=== PATIENT | female | born 1945 | race Caucasian/White ===

== ENCOUNTER 2020-12-13 13:55 | Inpatient (IN) | payer MEDICARE, OTHER, SELFPAY ==
[2020-12-13] VITALS (9 sets, daily range): BP systolic 98–153; BP diastolic 49–90; PULSE 67–100; RESP 16–25; TEMP 36.1–36.8; O2SAT 94–100; BMI 30.8
--- NOTE | ~2020-12-13 | XR_ITS ---
XR chest 1V portable 12/13/2020 14:13 Indication: Altered mental status. Shortness of breath. Procedure: AP portable chest Comparison: No prior studies for comparison. Findings: Patchy bilateral airspace disease, compatible with pneumonia. No significant effusion or pn eumothorax. No acute osseous abnormality. Impression: 1: Patchy bilateral airspace disease, compatible with pneumonia. Reviewed, dictated and finalized at location A. Impression: 1: Patchy bilateral airspace disease, compatible with pneumonia.
--- NOTE | ~2020-12-13 | CT_ITS ---
EXAMINATION: CT brain wo con EXAM DATE: 12/13/2020 14:56 INDICATION: Shortness of breath. Altered mental status. TECHNIQUE: Spiral CT of the head was performed without contrast. Axial, coronal and sagittal images were reviewed. The dose-length product (DLP) for this examination was 605.33 mGy-cm. The exposure w as tailored according to patient size, and iterative reconstruction (ASIR) was used as additional dos e reduction technique. There is no prior study for comparison. FINDINGS: There is no acute intraparenchymal hemorrhage. No evidence of intraparenchymal brain mass lesion. No evidence of acute infarction. Please note that initial head CT has limited sensitivity f or small or acute infarctions. 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 There is moderate perive ntricular and subcortical hypodensity, nonspecific but probably related to small vessel ischemic dise ase. There is moderate prominence of the sulci and ventricles related to cerebral atrophy. There is intracranial carotid arteriosclerosis. There are no extra-axial collections. There is no mass ef fect or midline shift. Patient has had bilateral ocular lens surgery. Soft tissue is unremarkable. The visualized sinuses and mastoid air cells are well aerated. IMPRESSION: 1. No acute intracranial findings. 2. Chronic age related findings. 3. 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 Reviewed, dictated and finalized at location B.
--- NOTE | 2020-12-13 14:01 | ECG_ITS ---
Measurements Intervals [place] Rate: 100 P: 28 NH: 175 QRS: -31 QRSD: 119 T: 120 QT: 341 QTc: 440 Interpretive Statements SINUS TACHYCARDIA LEFT AXIS DEVIATION INTRAVENTRICULAR CONDUCTION DELAY LEFT VENTRICULAR HYPERTROPHY AND ST-T CHANGE MINIMAL Q WAVES- HIGH LATERAL LEADS CANNOT RULE OUT SEPTAL INFARCT, AGE INDETERMINATE ABNORMAL ECG Electronically Signed On 12-13-2020 14:13:36 CDT by Paul Frederick D.O.
[2020-12-13] MEDS: SODIUM CHLORIDE 0.9% IV 1,000 ML 150 ML IV CONT (14:38)
[2020-12-13 14:43] LABS: Alveolar/Arterial O2 Gradient 42.5 mmHg; Base Excess ABG -0.3 mEq/l (+/-2.0); Device ROOM AIR; Fractional Inspired Oxygen 21 %; HCO3 ABG 22.6 mEq/l (22.0-26.0); Modified Allen's Test Pass; Oxygen Content ABG 18.9 %vol (16.0-22.0); Oxygen Saturation ABG 94.8 % (95.0-100.0); Oxyhemoglobin 92.7 % THb (90.0-100.0); PCO2 ABG 32.3 mmHg (35.0-45.0); PO2 ABG 68.6 mmHg (80.0-100.0); PO2 FiO2 Ratio Arterial Blood 3.27 %; Site Drawn RIGHT RADIAL; Total Hemoglobin 14.5 g/dL (12.0-18.0); pH ABG 7.463 (7.350-7.450)
[2020-12-13 15:24] LABS: Basophils Percent Auto 0.2 % (0.2-1.2); Eosinophils Absolute Auto 0.2 K/mm3 (0-0.3); Eosinophils Percent Auto 1.7 % (0-4.4); Hematocrit 41.7 % (37.0-47.0); Hemoglobin 14.3 g/dL (12.0-15.0); Immature Granulocyte Absolute 0.12 K/mm3 (0.00-0.031); Immature Granulocyte Percent A 0.8 % (0-0.5); Lymphocytes Absolute Auto 0.65 K/mm3 (0.9-3.2); Lymphocytes Percent Auto 4.5 % (18.3-44.2); Mean Corpuscular HGB Conc 34.3 g/dl (32-36); Mean Corpuscular Hemoglobin 31.7 pg (26-34); Mean Corpuscular Volume 92.5 fl (80-100); Mean Platelet Volume 11.6 fl (7.4-10.4); Monocytes Absolute Auto 0.8 K/mm3 (0.1-0.6); Monocytes Percent Auto 5.5 % (2.6-8.5); Neutrophils Absolute Auto 12.6 K/mm3 (1.3-6.7); Neutrophils Percent Auto 87.3 % (45.5-73.1); Platelet Count Result 146 k/mm3 (150-375); Red Blood Count 4.51 M/mm3 (4.2-5.4); Red Cell Distribution Width 13.1 % (11.5-14.5); White Blood Count 14.4 K/mm3 (4.5-10.0)
[2020-12-13 15:26] LABS: Alanine Aminotransferase 26 U/L (4-35); Albumin Level 4.9 g/dL (3.5-5.1); Alkaline Phosphatase 151 U/L (38-126); Anion Gap 14 mmol/L (8-16); Aspartate Amino Transferase 41 U/L (14-36); Bilirubin,Total 1.5 mg/dL (0.2-1.3); Blood Urea Nitrogen 23 mg/dL (7-17); Calcium 10.4 mg/dL (8.4-10.2); Carbon Dioxide 25 mmol/L (22-30); Chloride 105 mmol/L (98-107); Estimated CRCL calculation 41 ml/min; Estimated Glomerular Filt Rate 54; Glucose 180 mg/dL (65-110); Potassium 3.9 mmol/L (3.4-5.0); Sodium 144 mmol/L (137-145)
[2020-12-13 15:28] LABS: Prothrombin Time 12.8 Seconds (11.1-14.7)
[2020-12-13 15:36] LABS: NT Pro B Type Natriuretic Pept 292 pg/mL (5-100); Troponin I < 0.012 ng/mL (0.000-0.034)
[2020-12-13 15:38] LABS: Add Urine Microscopic? YES; Appearance Urine Clear (Clear); Bilirubin Urine Negative (Negative); Color Urine Yellow (Yellow); Glucose Urine UA Negative (Negative); Ketones Urine Trace mg/dL (Negative); Leukocyte Esterase Ur Negative LEU/UL (Negative); Nitrate Urine Negative (Negative); Protein Urine Negative (Negative); RBC Urine 0-2 /hpf (0-2); Specific Grav Ur 1.012 (1.001-1.035); Urobilinogen Urine Negative mg/dL (<2.0)
[2020-12-13 15:43] LABS: Blood Urine Negative (Negative)
--- NOTE | 2020-12-13 16:05 | PC.NURSE ---
patient unable to confirm allergies or past medical history, jail paperwork not complete
--- NOTE | 2020-12-13 16:21 | ED.AMS ---
HPI - Altered Mental Status General Chief Complaint: Altered Mental Status Stated Complaint: LETHARGY Time Seen by Provider: 12/13/20 14:11 Source: EMS Mode of arrival: EMS Limitations: altered mental status History of Present Illness HPI narrative: 75-year-old with a history of hypothyroidism, group home resident was sent from group home with increased lethargy for past few days. Was told by EMS that she was seen yesterday at [facility] and was released back to the group home. As per the nursing patient has been more lethargic this since this morning. Patient denies any pain anywhere does answer few questions. MD complaint: decreased responsiveness Onset (ago): day(s) (2) Severity: moderate Associated symptoms: denies other symptoms Related Data Allergies Allergy/AdvReac Type Severity Reaction Status Date / Time No Known Allergies Allergy Verified 12/13/20 14:39 Review of Systems Constitutional: Constitutional: Reports weakness Eyes: Eyes: Reports no additional eye complaints Cardiovascular: Cardiovascular: Reports no additional cardiovascular complaints Respiratory: Respiratory: Reports no additional respiratory complaints Gastrointestinal: Gastrointestinal: Reports no additional gastrointestinal complaints Genitourinary: Genitourinary: Reports no additional female genitourinary complaints Musculoskeletal: Musculoskeletal: Reports no additional musculoskeletal complaints Integumentary/Breasts: Skin/Breast: Reports system reviewed and no additional complaints, except as docu Neurologic: Reports as per HPI Exam Narrative: GENERAL:, well-nourished, lethargic had to wake her up several times while doing physical examination HEAD: Normocephalic, atraumatic. EYES: PERRLA and EOMI. ENT: Nares clear, no rhinorrhea or epistaxis. Mucous membranes dry NECK: Supple. CHEST: Clear to auscultation. No respiratory distress. HEART: Regular rate and rhythm. No murmur heard. Normal peripheral pulses. ABDOMEN: Soft, nontender, nondistended, normal active bowel sounds. EXTREMITIES: Normal range of motion. No edema. SKIN: Warm, dry, no rash. NEURO: No focal deficits. drowsy Course Course Emergency Course: Patient continues to be lethargic discussed with hospitalist will admit the patient. Vital Signs Vital signs: Vital Signs Temperature 36.8 C 12/13/20 13:54 Pulse Rate 100 12/13/20 13:54 Respiratory Rate 19 12/13/20 13:54 Blood Pressure 152/86 H 12/13/20 13:54 Pulse Oximetry 95 12/13/20 13:54 Temperature 36.8 C 12/13/20 13:54 Pulse Rate 99 12/13/20 16:05 Respiratory Rate 18 12/13/20 16:05 Blood Pressure 153/75 H 12/13/20 16:05 Pulse Oximetry 97 12/13/20 16:05 MDM - Altered Mental Status Lab Data Result diagrams: 12/13/20 14:26 12/13/20 14:26 Labs: Lab Results 12/13/20 12/13/20 12/13/20 Range/Units 14:26 14:26 14:26 WBC 14.4 H (4.5-10.0) K/mm3 RBC 4.51 (4.2-5.4) M/mm3 Hgb 14.3 (12.0-15.0) g/dL Hct 41.7 (37.0-47.0) % MCV 92.5 (80-100) fl MCH 31.7 (26-34) pg MCHC 34.3 (32-36) g/dl RDW 13.1 (11.5-14.5) % Plt Count 146 L (150-375) k/mm3 MPV 11.6 H (7.4-10.4) fl Immature Gran % (Auto) 0.8 H (0-0.5) % Neut % (Auto) 87.3 H (45.5-73.1) % Lymph % (Auto) 4.5 L (18.3-44.2) % [place] % (Auto) 5.5 (2.6-8.5) % Eos % (Auto) 1.7 (0-4.4) % Baso % (Auto) 0.2 (0.2-1.2) % Lymph # (Auto) 0.65 L (0.9-3.2) K/mm3 [place] # (Auto) 0.8 H (0.1-0.6) K/mm3 Eos # (Auto) 0.2 (0-0.3) K/mm3 Baso # (Auto) 0.0 (0.0-0.1) K/mm3 Abs Immat Gran (auto) 0.12 H (0.00-0.031) K/mm3 Absolute Neuts (auto) 12.6 H (1.3-6.7) K/mm3 Absolute Nucleated RBC 0.0 (0.0-0.012) K/mm3 Nucleated RBC % 0.0 (0.0-0.2) % PT 12.8 (11.1-14.7) Seconds INR 1.0 Sodium (137-145) mmol/L Potassium (3.4-5.0) mmol/L Chloride (98-107) mmol/L Carbon Di
--- NOTE | 2020-12-13 18:30 | ADMGEN ---
This patient, Aleta Howard, was admitted to Medical Room 245-. Patient/family oriented to hospital policies and general routines including ID bracelet, bed and alarms, visiting hours, pain management, procedures, bathroom and other care routines, personal items, smoking policy, room service/diet, and visiting hours. Information on how to activate the Rapid Response Team has been discussed. Patient/Family are encouraged to report perceived risks to care and to ask questions if they do not understand what they are told or what they should do.
--- NOTE | 2020-12-13 19:06 | PC.NURSE ---
Attempted to call snf to obtain PMH on patient. No answer from [facility].
[2020-12-13] MEDS: SODIUM CHLORIDE 0.9% IV 1,000 ML 125 ML IV CONT (20:03)
--- NOTE | 2020-12-13 21:37 | PM.IMHP ---
H&P: HPI History of Present Illness Date/Time: 12/13/20 21:37 This is a 75-year-old female patient from [facility]. The patient is very lethargic and was found to be more lethargic this morning at the halfway. I can stimulate the patient get her to open her eyes and falls asleep in the middle of a sentence. She is not able to answer any of her health questions. It is not known when the patient was last checked for COVID-19. However the patient tells me that she has had her complete set of vaccines for COVID-19. Patient denies any discomfort anywhere. She does have an elevated white count of 14.4. Chest x-ray was read as patchy bilateral airspace disease, compatible with pneumonia. Head CT no acute intracranial findings. Chronic age-related findings. Old left basal ganglia glue cane or infarctions. Chest x-ray was read as patchy bilateral airspace disease, compatible with pneumonia. The patient was started on antibiotic stewardship for community-acquired pneumonia with azithromycin Rocephin. I did order a COVID swab on the patient. I did speak with her daughter anita who stated that the patient had gone to [facility] [place] on Thursday and was found to have a urinary tract infection at that time. The patient was placed on IV antibiotics that night and then transition to oral antibiotics. However today her urine does not appear to be infected. The patient was admitted to observation status on the date of service of 12/13/2020. Chief Complaint: Lethargic Review of Systems Review of Systems: All systems reviewed & are unremarkable except as noted in HPI and below Constitutional: Constitutional: Reports as per HPI and Reports no additional constitutional complaints Eyes: Eyes: Reports as per HPI and Reports no additional eye complaints ENT: Reports system reviewed and no additional complaints, except as documented and Reports Normal hearing present Cardiovascular: Cardiovascular: Reports no additional cardiovascular complaints Respiratory: Respiratory: Reports no additional respiratory complaints and Reports no additional respiratory complaints Gastrointestinal: Gastrointestinal: Reports as per HPI and Reports no additional gastrointestinal complaints Musculoskeletal: Musculoskeletal: Reports no additional musculoskeletal complaints Integumentary/Breasts: Skin/Breast: Reports system reviewed and no additional complaints, except as docu and Reports as per HPI Neurologic: Reports system reviewed and no additional complaints, except as documented, Reports as per HPI and Reports Normal hearing present Psychiatric: Psychiatric: Reports no additional psychiatric complaints and Reports as per HPI Endocrine: Endocrine: Reports no additional endocrine complaints Hematologic/Lymphatic: Hematologic/Lymphatic: Reports no additional hematologic/lymphatic complaints Allergic/Immunologic: Allergic/Immunologic: Reports no additional allergic/immunologic complaints [facility] Past Medical History Medical History (Updated 12/13/20 @ 22:16 by Sydnie Otto NP) Depression with anxiety Diverticulitis Hyperlipidemia Hypothyroidism Narcolepsy Restless leg Surgical History Surgical History (Updated 12/13/20 @ 21:59 by Sydnie Otto NP) H/O lumpectomy H/O: hysterectomy History of total knee arthroplasty Hx of cholecystectomy S/P colectomy Family History Family History (Updated 12/13/20 @ 22:03 by Sydnie Otto NP) Father Bone cancer Mother Cerebrovascular accident Other Unknown family medical history Social History Social History (Updated 12/13/20 @ 22:03 by Sydnie Otto NP) Social History: She is . she is listed as a full.She has two children. nonsmoker. no alcohol. she retired from [employer].Anita horne is the poa who is the daughter Meds Home Medications and Allergies Home Medications Medication Instructions Recorded Confirmed Type Calcium 600 + D(3) 2 tablet PO D
--- NOTE | 2020-12-13 22:39 | PC.NURSE ---
This patient, Aleta Howard, was received from [address] [place] [address] on 12/13/20 at 2240. Report taken from Yaritza CORDERO. Patient/family oriented to unit policies and routines.
--- NOTE | 2020-12-13 22:50 | PC.NURSE ---
REPORT CALLED TO BRAULIO CORDERO ON , PT TRANSPORTED PER BED TO ROOM 329. JEWELRY HANDED TO BRAULIO CORDERO
--- NOTE | 2020-12-13 22:52 | PC.NURSE ---
DAUGHTER KEYSHA NOTIFIED OF TRANSFER
[2020-12-14] VITALS: PULSE 90
[2020-12-14 04:00] VITALS: BP 118/68; PULSE 72; PULSE 75; RESP 16; TEMP 36.3; O2SAT 94
[2020-12-14 06:30] LABS: Basophils Absolute Auto 0.1 K/mm3 (0.0-0.1); Basophils Percent Auto 0.4 % (0.2-1.2); Eosinophils Absolute Auto 0.3 K/mm3 (0-0.3); Eosinophils Percent Auto 2.6 % (0-4.4); Hematocrit 47.8 % (37.0-47.0); Hemoglobin 15.4 g/dL (12.0-15.0); Immature Granulocyte Absolute 0.08 K/mm3 (0.00-0.031); Immature Granulocyte Percent A 0.6 % (0-0.5); Immature Platelet Fraction Pct 8.9 % (0.9-11.2); Lymphocytes Absolute Auto 1.55 K/mm3 (0.9-3.2); Lymphocytes Percent Auto 12.4 % (18.3-44.2); Mean Corpuscular HGB Conc 32.2 g/dl (32-36); Mean Corpuscular Volume 96.4 fl (80-100); Mean Platelet Volume 11.7 fl (7.4-10.4); Monocytes Absolute Auto 0.9 K/mm3 (0.1-0.6); Monocytes Percent Auto 6.9 % (2.6-8.5); Neutrophils Absolute Auto 9.7 K/mm3 (1.3-6.7); Neutrophils Percent Auto 77.1 % (45.5-73.1); Platelet Count Result 127 k/mm3 (150-375); Red Blood Count 4.96 M/mm3 (4.2-5.4); Red Cell Distribution Width 13.2 % (11.5-14.5); White Blood Count 12.5 K/mm3 (4.5-10.0)
[2020-12-14 06:44] LABS: Lactic Acid Reflex 1.2 mmol/L (0.7-2.1)
[2020-12-14 07:09] LABS: Atypical Lymphocytes Present; Platelet Estimate Adequate (Adequate)
[2020-12-14 07:49] LABS: Alanine Aminotransferase 19 U/L (4-35); Albumin Level 3.7 g/dL (3.5-5.1); Alkaline Phosphatase 103 U/L (38-126); Anion Gap 7 mmol/L (8-16); Aspartate Amino Transferase 28 U/L (14-36); Blood Urea Nitrogen 21 mg/dL (7-17); CRP 8.7 mg/dL (<1.0); Carbon Dioxide 26 mmol/L (22-30); Chloride 110 mmol/L (98-107); Creatine Kinase 134 U/L (30-135); Estimated CRCL calculation 53 ml/min; Estimated Glomerular Filt Rate > 60; Glucose 147 mg/dL (65-110); Lactate Dehydrogenase 438 U/L (313-618); Magnesium 1.8 mg/dL (1.6-2.3); Potassium 3.4 mmol/L (3.4-5.0); Sodium 143 mmol/L (137-145)
[2020-12-14 07:53] LABS: Thyroid Stimulating Hormone Reflex 0.841 uIU/mL (0.465-4.68)
[2020-12-14 08:00] VITALS: BP 108/48; PULSE 73; PULSE 75; RESP 20; TEMP 36.7; O2SAT 95
[2020-12-14] MEDS: ENOXAPARIN 40 MG/0.4 ML SYRINGE SUB-Q (08:42)
[2020-12-14 12:00] VITALS: BP 104/56; PULSE 72; PULSE 82; RESP 20; TEMP 36.5; O2SAT 100
--- NOTE | 2020-12-14 15:01 | P.PNIM_ITS ---
Progress Note: A&P Assessment and Plan (1) Pneumonia: Qualifiers: Laterality: bilateral Lung location: lower lobe of lung Pneumonia type: due to unspecified organism Qualified Code(s): J18.9 - Pneumonia, unspecified organism Code(s): J18.9 - Pneumonia, unspecified organism Status: Acute Assessment and Plan: * blood cultures are pending. * sputum cultures are pending. * chest x-ray was read as patchy infiltrates bilaterally * fully vaccinated for COVID-19. * daughter was not sure when the patient had gotten swabbed for COVID-19. * Covid pending * Ceftriaxone and azithromycin * WBC 12.5 today (2) Altered mental status: Qualifiers: Altered mental status type: somnolence Qualified Code(s): R40.0 - Somnolence Code(s): R41.82 - Altered mental status, unspecified Status: Acute Assessment and Plan: * CT scan shows old infarctions and nothing acute. * could be related to infectious process whether it is bacterial or viral. * history of narcolepsy. * Better today * Electrolytes normal * Trend labs (3) Depression with anxiety: Code(s): F41.8 - Other specified anxiety disorders Status: Chronic Assessment and Plan: * Restart home medications * Continue sertraline (4) Hypothyroidism: Code(s): E03.9 - Hypothyroidism, unspecified Status: Chronic Assessment and Plan: * continue levothyroxine 25mcg PO Daily * thyroid level 0.841 (5) Hyperlipidemia: Code(s): E78.5 - Hyperlipidemia, unspecified Status: Chronic Assessment and Plan: * simvastatin 10mg PO at night (6) Restless leg: Code(s): G25.81 - Restless legs syndrome Status: Chronic Assessment and Plan: * Continue home ropinirole (7) Suspected COVID-19 virus infection: Code(s): Z20.822 - Contact with and (suspected) exposure to COVID-19 Status: Acute Assessment and Plan: * Covid pending * droplet and contact isolation. 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 Status: Acute Assessment and Plan: * Continue Modafinil Time Spent With Patient Time with patient: Greater than 35 minutes Subjective Date/time seen: 12/14/20 15:01 Interval history: Patient is a 75 year old female who is here for altered mental status. She seemed ok, however, when she is asked a question she does not really answer the question. When I would ask if she knew the answer or if she was just thinking about it. It was really hard to get her to really talk to me when I would ask her questions. She did tell me that she did not like eggs. She denies chest pain, shortness of breath, nausea, vomiting. Review of Systems Review of Systems: All systems reviewed & are unremarkable except as noted in HPI and below Exam Const: General: cooperative, confusion, ill appearing and tired appearing Nutritional Appearance: average body habitus and overweight Orientation/consciousness: oriented to person, oriented to place and confusion Limitations: no limitations HENMT: Head: normal to inspection, No palpable skull fracture present, normocephalic and atraumatic Ears: hearing grossly normal bilaterally and external ears normal General nose exam: Norm
--- NOTE | 2020-12-14 15:01 | PM.IMPN ---
Progress Note: A&P Assessment and Plan (1) Pneumonia: Qualifiers: Laterality: bilateral Lung location: lower lobe of lung Pneumonia type: due to unspecified organism Qualified Code(s): J18.9 - Pneumonia, unspecified organism Code(s): J18.9 - Pneumonia, unspecified organism Status: Acute Assessment and Plan: blood cultures are pending. sputum cultures are pending. chest x-ray was read as patchy infiltrates bilaterally fully vaccinated for COVID-19. daughter was not sure when the patient had gotten swabbed for COVID-19. Covid pending Ceftriaxone and azithromycin WBC 12.5 today (2) Altered mental status: Qualifiers: Altered mental status type: somnolence Qualified Code(s): R40.0 - Somnolence Code(s): R41.82 - Altered mental status, unspecified Status: Acute Assessment and Plan: CT scan shows old infarctions and nothing acute. could be related to infectious process whether it is bacterial or viral. history of narcolepsy. Better today Electrolytes normal Trend labs (3) Depression with anxiety: Code(s): F41.8 - Other specified anxiety disorders Status: Chronic Assessment and Plan: Restart home medications Continue sertraline (4) Hypothyroidism: Code(s): E03.9 - Hypothyroidism, unspecified Status: Chronic Assessment and Plan: continue levothyroxine 25mcg PO Daily thyroid level 0.841 (5) Hyperlipidemia: Code(s): E78.5 - Hyperlipidemia, unspecified Status: Chronic Assessment and Plan: simvastatin 10mg PO at night (6) Restless leg: Code(s): G25.81 - Restless legs syndrome Status: Chronic Assessment and Plan: Continue home ropinirole (7) Suspected COVID-19 virus infection: Code(s): Z20.822 - Contact with and (suspected) exposure to COVID-19 Status: Acute Assessment and Plan: Covid pending droplet and contact isolation. has been fully vaccinated and her daughter did verify this (8) Narcolepsy: Code(s): G47.419 - Narcolepsy without cataplexy Status: Acute Assessment and Plan: Continue Modafinil Time Spent With Patient Time with patient: Greater than 35 minutes Subjective Date/time seen: 12/14/20 15:01 Interval history: Patient is a 75 year old female who is here for altered mental status. She seemed ok, however, when she is asked a question she does not really answer the question. When I would ask if she knew the answer or if she was just thinking about it. It was really hard to get her to really talk to me when I would ask her questions. She did tell me that she did not like eggs. She denies chest pain, shortness of breath, nausea, vomiting. Review of Systems Review of Systems: All systems reviewed & are unremarkable except as noted in HPI and below Exam Const: General: cooperative, confusion, ill appearing and tired appearing Nutritional Appearance: average body habitus and overweight Orientation/consciousness: oriented to person, oriented to place and confusion Limitations: no limitations HENMT: Head: normal to inspection, No palpable skull fracture present, normocephalic and atraumatic Ears: hearing grossly normal bilaterally and external ears normal General nose exam: Normal external nose present and Normal nares present Mouth: Yes dry mucous membranes Eyes: General: appearance normal, both eyes and all related structures Alignment and Position: alignment normal Periorbital: periorbital findings normal Eyelids: eyelids normal Pupils: Equal, round and reactive pupils present EOM: EOMs intact bilaterally Neck: Neck: normal visual inspection Chest: Chest palpation & inspection: normal inspection of the chest Resp: Effort & Inspection: normal respiratory effort Auscultation: clear to auscultation bilaterally Percuss
[2020-12-14 16:00] VITALS: BP 105/53; PULSE 61; PULSE 65; RESP 16; TEMP 36.6; O2SAT 94
[2020-12-14] MEDS: SODIUM CHLORIDE 0.9% IV 1,000 ML 125 ML IV CONT (17:07)
[2020-12-14 18:26] LABS: SARS-CoV-2 RNA PCR Negative
[2020-12-14 20:00] VITALS: BP 129/57; PULSE 66; PULSE 71; RESP 18; TEMP 37.2; O2SAT 96
[2020-12-14] MEDS: busPIRone HCL 2.5 MG TABLET 7.5 MG PO (20:58)
[2020-12-14] MEDS: rOPINIRole HCL 1 MG TABLET PO (20:58)
[2020-12-14] MEDS: SIMVASTATIN 10 MG TABLET PO (20:58)
[2020-12-14 22:47] LABS: Glucose Point of Care 124 mg/dl (65-105)
[2020-12-15] VITALS: BP 127/61; PULSE 74; PULSE 78; RESP 18; TEMP 36.4; O2SAT 91
[2020-12-15] MEDS: SODIUM CHLORIDE 0.9% IV 1,000 ML 125 ML IV CONT ×2 (03:19→11:31)
[2020-12-15 04:00] VITALS: BP 128/60; PULSE 70; PULSE 73; RESP 18; TEMP 36.3; O2SAT 96
[2020-12-15] MEDS: LEVOTHYROXINE SODIUM 25 MCG TABLET PO (06:14)
[2020-12-15 06:43] LABS: Basophils Percent Auto 0.4 % (0.2-1.2); Eosinophils Absolute Auto 0.3 K/mm3 (0-0.3); Eosinophils Percent Auto 4.1 % (0-4.4); Hematocrit 34.3 % (37.0-47.0); Hemoglobin 11.7 g/dL (12.0-15.0); Immature Granulocyte Absolute 0.05 K/mm3 (0.00-0.031); Immature Granulocyte Percent A 0.6 % (0-0.5); Immature Platelet Fraction Pct 5.5 % (0.9-11.2); Lymphocytes Absolute Auto 1.55 K/mm3 (0.9-3.2); Lymphocytes Percent Auto 19.7 % (18.3-44.2); Mean Corpuscular HGB Conc 34.1 g/dl (32-36); Mean Corpuscular Hemoglobin 32.1 pg (26-34); Mean Platelet Volume 11.4 fl (7.4-10.4); Monocytes Absolute Auto 0.7 K/mm3 (0.1-0.6); Monocytes Percent Auto 9.1 % (2.6-8.5); Neutrophils Absolute Auto 5.2 K/mm3 (1.3-6.7); Neutrophils Percent Auto 66.1 % (45.5-73.1); Platelet Count Result 133 k/mm3 (150-375); Red Blood Count 3.65 M/mm3 (4.2-5.4); Red Cell Distribution Width 13.2 % (11.5-14.5); White Blood Count 7.9 K/mm3 (4.5-10.0)
[2020-12-15 07:18] LABS: Alanine Aminotransferase 19 U/L (4-35); Albumin Level 3.2 g/dL (3.5-5.1); Alkaline Phosphatase 86 U/L (38-126); Anion Gap 9 mmol/L (8-16); Aspartate Amino Transferase 33 U/L (14-36); Bilirubin,Total 0.8 mg/dL (0.2-1.3); Blood Urea Nitrogen 21 mg/dL (7-17); Calcium 8.2 mg/dL (8.4-10.2); Carbon Dioxide 22 mmol/L (22-30); Chloride 109 mmol/L (98-107); Estimated CRCL calculation 60 ml/min; Estimated Glomerular Filt Rate > 60; Glucose 127 mg/dL (65-110); Magnesium 1.6 mg/dL (1.6-2.3); Potassium 3.5 mmol/L (3.4-5.0); Sodium 140 mmol/L (137-145)
[2020-12-15 08:00] VITALS: PULSE 69
[2020-12-15] MEDS: ENOXAPARIN 40 MG/0.4 ML SYRINGE SUB-Q (08:04)
[2020-12-15] MEDS: busPIRone HCL 2.5 MG TABLET 7.5 MG PO ×2 (08:04→21:11)
[2020-12-15] MEDS: FAMOTIDINE 10 MG TABLET PO (08:05)
[2020-12-15] MEDS: FLUTICASONE PROPIONATE 0.05% NA SPR 16 GM BTL (*BKC) 1 SPRAY NASAL (08:05)
[2020-12-15] MEDS: LORATADINE 10 MG TABLET PO (08:05)
[2020-12-15] MEDS: SERTRALINE HCL 50 MG TABLET PO (08:05)
[2020-12-15] MEDS: CHOLECALCIFEROL 1,000 UNITS TABLET 1000 UNITS PO (08:05)
[2020-12-15] MEDS: DOCUSATE SODIUM 100 MG CAPSULE PO (08:05)
[2020-12-15] MEDS: ASCORBIC ACID 500 MG TABLET PO (08:05)
[2020-12-15] MEDS: ASPIRIN 81 MG CHEWABLE TABLET PO (08:05)
[2020-12-15] MEDS: MONTELUKAST SODIUM 10 MG TABLET PO (08:05)
[2020-12-15] MEDS: MAGNESIUM SULF 2 GM/WATER 50ML 2 GM/50 ML BAG IVPB (08:15)
[2020-12-15] MEDS: modafiniL (*CRX) 200 MG TABLET PO (08:17)
--- NOTE | 2020-12-15 10:00 | PM.IMPN ---
Progress Note: A&P Assessment and Plan (1) Pneumonia: Qualifiers: Laterality: bilateral Lung location: lower lobe of lung Pneumonia type: due to unspecified organism Qualified Code(s): J18.9 - Pneumonia, unspecified organism Code(s): J18.9 - Pneumonia, unspecified organism Status: Acute Assessment and Plan: blood cultures NGTD. sputum cultures pending chest x-ray was read as patchy infiltrates bilaterally fully vaccinated for COVID-19. Covid Negative Ceftriaxone and azithromycin Day 3 WBC 7.9 today (2) Altered mental status: Qualifiers: Altered mental status type: somnolence Qualified Code(s): R40.0 - Somnolence Code(s): R41.82 - Altered mental status, unspecified Status: Acute Assessment and Plan: CT scan shows old infarctions and nothing acute. could be related to infectious process whether it is bacterial or viral. history of narcolepsy. Better today mag slightly low, replaced Trend labs (3) Depression with anxiety: Code(s): F41.8 - Other specified anxiety disorders Status: Chronic Assessment and Plan: Restart home medications Continue sertraline (4) Hypothyroidism: Code(s): E03.9 - Hypothyroidism, unspecified Status: Chronic Assessment and Plan: continue levothyroxine 25mcg PO Daily thyroid level 0.841 (5) Hyperlipidemia: Code(s): E78.5 - Hyperlipidemia, unspecified Status: Chronic Assessment and Plan: simvastatin 10mg PO at night (6) Restless leg: Code(s): G25.81 - Restless legs syndrome Status: Chronic Assessment and Plan: Continue home ropinirole (7) Suspected COVID-19 virus infection: Code(s): Z20.822 - Contact with and (suspected) exposure to COVID-19 Status: Acute Assessment and Plan: Covid negative droplet and contact isolation. has been fully vaccinated and her daughter did verify this (8) Narcolepsy: Code(s): G47.419 - Narcolepsy without cataplexy Status: Acute Assessment and Plan: Continue Modafinil (9) Hypomagnesemia: Code(s): E83.42 - Hypomagnesemia Status: Acute Assessment and Plan: Mg 1.6 replace 2mg IV once trend labs Replace as needed (10) Hypokalemia: Code(s): E87.6 - Hypokalemia Status: Acute Assessment and Plan: Potassium 3.5 Considered giving 20mcg after mg infusion Trend labs Replace as needed Time Spent With Patient Time with patient: 25 - 35 minutes Subjective Date/time seen: 12/15/20 07:55 Interval history: Patient is a 75 year old female who is here for altered mental status. Patient states she is feeling okay and she denies having any kind of pain. She does have a bit of dizziness while sitting up or getting up. She was getting up to chair which she did well and she was able to put on her socks. Patient does have a little bit of expressive and receptive aphasia which can find the right word or understand some of the word asked of her. Patient denies knowing about her old stroke. However patient is still able to move all extremities and transfer the chair quite nicely. Patient denies chest pain, shortness of breath, abdominal pain, nausea, vomiting. Patient did say that she was weak. Review of Systems Review of Systems: All systems reviewed & are unremarkable except as noted in HPI and below Exam Const: General: cooperative, no acute distress and confusion Nutritional Appearance: average body habitus and overweight Orientation/consciousness: oriented to person, oriented to place and confusion Limitations: no limitations HENMT: Head: normal to inspection, No palpable skull fracture present, normocephalic and atraumatic Ears: hearing grossly normal bilaterally and external ears normal General nose exam: Norm
--- NOTE | 2020-12-15 10:00 | P.PNIM_ITS ---
Progress Note: A&P Assessment and Plan (1) Pneumonia: Qualifiers: Laterality: bilateral Lung location: lower lobe of lung Pneumonia type: due to unspecified organism Qualified Code(s): J18.9 - Pneumonia, unspecified organism Code(s): J18.9 - Pneumonia, unspecified organism Status: Acute Assessment and Plan: * blood cultures NGTD. * sputum cultures pending * chest x-ray was read as patchy infiltrates bilaterally * fully vaccinated for COVID-19. * Covid Negative * Ceftriaxone and azithromycin Day 3 * WBC 7.9 today (2) Altered mental status: Qualifiers: Altered mental status type: somnolence Qualified Code(s): R40.0 - Somnolence Code(s): R41.82 - Altered mental status, unspecified Status: Acute Assessment and Plan: * CT scan shows old infarctions and nothing acute. * could be related to infectious process whether it is bacterial or viral. * history of narcolepsy. * Better today * mag slightly low, replaced * Trend labs (3) Depression with anxiety: Code(s): F41.8 - Other specified anxiety disorders Status: Chronic Assessment and Plan: * Restart home medications * Continue sertraline (4) Hypothyroidism: Code(s): E03.9 - Hypothyroidism, unspecified Status: Chronic Assessment and Plan: * continue levothyroxine 25mcg PO Daily * thyroid level 0.841 (5) Hyperlipidemia: Code(s): E78.5 - Hyperlipidemia, unspecified Status: Chronic Assessment and Plan: * simvastatin 10mg PO at night (6) Restless leg: Code(s): G25.81 - Restless legs syndrome Status: Chronic Assessment and Plan: * Continue home ropinirole (7) Suspected COVID-19 virus infection: Code(s): Z20.822 - Contact with and (suspected) exposure to COVID-19 Status: Acute Assessment and Plan: * Covid negative * droplet and contact isolation. 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 Status: Acute Assessment and Plan: * Continue Modafinil (9) Hypomagnesemia: Code(s): E83.42 - Hypomagnesemia Status: Acute Assessment and Plan: * Mg 1.6 * replace 2mg IV once * trend labs * Replace as needed (10) Hypokalemia: Code(s): E87.6 - Hypokalemia Status: Acute Assessment and Plan: * Potassium 3.5 * Considered giving 20mcg after mg infusion * Trend labs * Replace as needed Time Spent With Patient Time with patient: 25 - 35 minutes Subjective Date/time seen: 12/15/20 07:55 Interval history: Patient is a 75 year old female who is here for altered mental status. Patient states she is feeling okay and she denies having any kind of pain. She does have a bit of dizziness while sitting up or getting up. She was getting up to chair which she did well and she was able to put on her socks. Patient does have a little bit of expressive and receptive aphasia which can find the right word or understand some of the word asked of her. Patient denies knowing about her old stroke. However patient is still able to move all extremities and transfer the chair quite nicely. Patient denies chest pain, shortness of breath, abdominal pain, nausea, vomi
[2020-12-15 14:00] VITALS: BP 150/69; PULSE 69; RESP 28; TEMP 36.6; O2SAT 97
[2020-12-15] MEDS: SIMVASTATIN 10 MG TABLET PO (21:11)
[2020-12-15] MEDS: rOPINIRole HCL 1 MG TABLET PO (21:11)
[2020-12-15 21:52] VITALS: BP 145/65; PULSE 80; RESP 18; TEMP 36.6; O2SAT 95
[2020-12-16] MEDS: LEVOTHYROXINE SODIUM 25 MCG TABLET PO (05:42)
[2020-12-16 05:46] VITALS: BP 124/55; PULSE 65; RESP 18; TEMP 36.6; O2SAT 95
[2020-12-16 07:04] LABS: Basophils Absolute Auto 0.1 K/mm3 (0.0-0.1); Basophils Percent Auto 0.7 % (0.2-1.2); Eosinophils Absolute Auto 0.3 K/mm3 (0-0.3); Eosinophils Percent Auto 4.2 % (0-4.4); Hematocrit 34.6 % (37.0-47.0); Hemoglobin 11.7 g/dL (12.0-15.0); Immature Granulocyte Absolute 0.07 K/mm3 (0.00-0.031); Immature Granulocyte Percent A 0.9 % (0-0.5); Immature Platelet Fraction Pct 6.6 % (0.9-11.2); Lymphocytes Absolute Auto 1.58 K/mm3 (0.9-3.2); Lymphocytes Percent Auto 20.9 % (18.3-44.2); Mean Corpuscular HGB Conc 33.8 g/dl (32-36); Mean Corpuscular Hemoglobin 31.5 pg (26-34); Mean Corpuscular Volume 93.3 fl (80-100); Mean Platelet Volume 11.1 fl (7.4-10.4); Monocytes Absolute Auto 0.8 K/mm3 (0.1-0.6); Monocytes Percent Auto 10.3 % (2.6-8.5); Neutrophils Absolute Auto 4.8 K/mm3 (1.3-6.7); Platelet Count Result 146 k/mm3 (150-375); Red Blood Count 3.71 M/mm3 (4.2-5.4); Red Cell Distribution Width 12.8 % (11.5-14.5); White Blood Count 7.6 K/mm3 (4.5-10.0)
[2020-12-16 07:36] LABS: Alanine Aminotransferase 18 U/L (4-35); Albumin Level 3.3 g/dL (3.5-5.1); Alkaline Phosphatase 94 U/L (38-126); Anion Gap 6 mmol/L (8-16); Aspartate Amino Transferase 27 U/L (14-36); Bilirubin,Total 0.7 mg/dL (0.2-1.3); Blood Urea Nitrogen 18 mg/dL (7-17); Calcium 8.1 mg/dL (8.4-10.2); Carbon Dioxide 25 mmol/L (22-30); Chloride 108 mmol/L (98-107); Estimated CRCL calculation 60 ml/min; Estimated Glomerular Filt Rate > 60; Glucose 154 mg/dL (65-110); Potassium 3.2 mmol/L (3.4-5.0); Sodium 139 mmol/L (137-145)
[2020-12-16] MEDS: busPIRone HCL 2.5 MG TABLET 7.5 MG PO (09:33)
[2020-12-16] MEDS: SERTRALINE HCL 50 MG TABLET PO (09:33)
[2020-12-16] MEDS: MONTELUKAST SODIUM 10 MG TABLET PO (09:33)
[2020-12-16] MEDS: ENOXAPARIN 40 MG/0.4 ML SYRINGE SUB-Q (09:33)
[2020-12-16] MEDS: POTASSIUM CHLORIDE 20 MEQ TABLET 40 MEQ PO (09:33)
[2020-12-16] MEDS: CHOLECALCIFEROL 1,000 UNITS TABLET 1000 UNITS PO (09:34)
[2020-12-16] MEDS: LORATADINE 10 MG TABLET PO (09:34)
[2020-12-16] MEDS: ASPIRIN 81 MG CHEWABLE TABLET PO (09:34)
[2020-12-16] MEDS: ASCORBIC ACID 500 MG TABLET PO (09:34)
[2020-12-16] MEDS: FAMOTIDINE 10 MG TABLET PO (09:34)
[2020-12-16] MEDS: FLUTICASONE PROPIONATE 0.05% NA SPR 16 GM BTL (*BKC) 1 SPRAY NASAL (09:34)
[2020-12-16] MEDS: DOCUSATE SODIUM 100 MG CAPSULE PO (09:34)
[2020-12-16] MEDS: modafiniL (*CRX) 200 MG TABLET PO (09:36)
--- NOTE | 2020-12-16 13:12 | P.DS_ITS ---
DS: Admitting Diagnosis Discharge Date Date of service 12/16/2020 at 11:00 a.m. Admitting Diagnosis Pneumonia DS: Discharge Diagnosis Discharge Diagnosis (1) Pneumonia: Qualifiers: Laterality: bilateral Lung location: lower lobe of lung Pneumonia type: due to unspecified organism Qualified Code(s): J18.9 - Pneumonia, unspecified organism Code(s): J18.9 - Pneumonia, unspecified organism Status: Acute Assessment and Plan: * blood cultures NGTD. * sputum cultures pending * chest x-ray was read as patchy infiltrates bilaterally * fully vaccinated for COVID-19. * Covid Negative * Ceftriaxone and azithromycin Day 3 * WBC 7.9 today (2) Altered mental status: Qualifiers: Altered mental status type: somnolence Qualified Code(s): R40.0 - Somnolence Code(s): R41.82 - Altered mental status, unspecified Status: Acute Assessment and Plan: * CT scan shows old infarctions and nothing acute. * could be related to infectious process whether it is bacterial or viral. * history of narcolepsy. * Better today * mag slightly low, replaced * Trend labs (3) Depression with anxiety: Code(s): F41.8 - Other specified anxiety disorders Status: Chronic Assessment and Plan: * Restart home medications * Continue sertraline (4) Hypothyroidism: Code(s): E03.9 - Hypothyroidism, unspecified Status: Chronic Assessment and Plan: * continue levothyroxine 25mcg PO Daily * thyroid level 0.841 (5) Hyperlipidemia: Code(s): E78.5 - Hyperlipidemia, unspecified Status: Chronic Assessment and Plan: * simvastatin 10mg PO at night (6) Restless leg: Code(s): G25.81 - Restless legs syndrome Status: Chronic Assessment and Plan: * Continue home ropinirole (7) Suspected COVID-19 virus infection: Code(s): Z20.822 - Contact with and (suspected) exposure to COVID-19 Status: Acute Assessment and Plan: * Covid negative * droplet and contact isolation. 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 Status: Acute Assessment and Plan: * Continue Modafinil (9) Hypomagnesemia: Code(s): E83.42 - Hypomagnesemia Status: Acute Assessment and Plan: * Mg 1.6 * replace 2mg IV once * trend labs * Replace as needed (10) Hypokalemia: Code(s): E87.6 - Hypokalemia Status: Acute Assessment and Plan: * Potassium 3.5 * Considered giving 20mcg after mg infusion * Trend labs * Replace as needed DS: Summary Hospital Course Hospital Course: Patient is a 75-year-old female with a past medical history of hyperlipidemia, hypothyroidism, diverticulitis who presented to the ED with complaints of altered mental status. Patient was started on IV antibiotics for treatment of pneumonia. Chest x-ray did show patchy infiltrates bilaterally. COVID swab was negative patient was COVID vaccinated. Patient has been able to feed herself and 8. She has also been up to the chair and walked in the room. Patient has not required any oxygen. Patient stated that she is okay with going home today and she feels like herself. She denies pain including
--- NOTE | 2020-12-16 13:12 | PM.DS ---
DS: Admitting Diagnosis Discharge Date Date of service 12/16/2020 at 11:00 a.m. Admitting Diagnosis Pneumonia DS: Discharge Diagnosis Discharge Diagnosis (1) Pneumonia: Qualifiers: Laterality: bilateral Lung location: lower lobe of lung Pneumonia type: due to unspecified organism Qualified Code(s): J18.9 - Pneumonia, unspecified organism Code(s): J18.9 - Pneumonia, unspecified organism Status: Acute Assessment and Plan: blood cultures NGTD. sputum cultures pending chest x-ray was read as patchy infiltrates bilaterally fully vaccinated for COVID-19. Covid Negative Ceftriaxone and azithromycin Day 3 WBC 7.9 today (2) Altered mental status: Qualifiers: Altered mental status type: somnolence Qualified Code(s): R40.0 - Somnolence Code(s): R41.82 - Altered mental status, unspecified Status: Acute Assessment and Plan: CT scan shows old infarctions and nothing acute. could be related to infectious process whether it is bacterial or viral. history of narcolepsy. Better today mag slightly low, replaced Trend labs (3) Depression with anxiety: Code(s): F41.8 - Other specified anxiety disorders Status: Chronic Assessment and Plan: Restart home medications Continue sertraline (4) Hypothyroidism: Code(s): E03.9 - Hypothyroidism, unspecified Status: Chronic Assessment and Plan: continue levothyroxine 25mcg PO Daily thyroid level 0.841 (5) Hyperlipidemia: Code(s): E78.5 - Hyperlipidemia, unspecified Status: Chronic Assessment and Plan: simvastatin 10mg PO at night (6) Restless leg: Code(s): G25.81 - Restless legs syndrome Status: Chronic Assessment and Plan: Continue home ropinirole (7) Suspected COVID-19 virus infection: Code(s): Z20.822 - Contact with and (suspected) exposure to COVID-19 Status: Acute Assessment and Plan: Covid negative droplet and contact isolation. 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 Patient was started on IV antibiotics for treatment of pneumonia. Chest x-ray did show patchy infiltrates bilaterally. COVID swab was negative patient was COVID vaccinated. Patient has been able to feed herself and 8. She has also been up to the chair and walked in the room. Patient has not required any oxygen. Patient stated that she is okay with going home today and she feels like herself. She denies pain including chest pain, shortness of breath, weakness, fatigue, fevers, chills, sweats. Patient did say that she had some lightheadedness with getting out of bed. Instructed patient to move and change positions slowly. Updated the daughter about the discharge in the her know the patient is ready to go back. Daughter stated that she would be by to get the patient. She also like to note the patient was appropriate for assisted living. Patient will be going back to her [facility] at [facility]. Status at Discharge Functional status at discharge: uses cane/walker Overall status at discharge: maria teresa
[2020-12-16 14:00] VITALS: BP 133/69; PULSE 67; RESP 20; TEMP 36.4; O2SAT 99
== END 2020-12-16 18:35 | DRG 195 ==
LOC: ANHED 16:29 → ANH2MED 17:57 → ANH3MEDSUR 22:34
PROVIDERS: Nurse Practitioner; Admitting Provider Hospitalist; Emergency Provider Family Medicine; Visit Provider Nurse Practitioner
DX: J18.9 Pneumonia, unspecified organism (principal); Z20.828 Contact with and (suspected) exposure to other viral communicable diseases; F41.8 Other specified anxiety disorders; E03.9 Hypothyroidism, unspecified; E78.5 Hyperlipidemia, unspecified; G25.81 Restless legs syndrome; G47.419 Narcolepsy without cataplexy; E83.42 Hypomagnesemia; E87.6 Hypokalemia; R41.82 Altered mental status, unspecified; Z96.659 Presence of unspecified artificial knee joint; Z90.710 Acquired absence of both cervix and uterus; Z90.49 Acquired absence of other specified parts of digestive tract
CPT/HCPCS: 36415; 36600; 51701; 70450; 71045; 80053; 81001; 82550; 82728; 82805; 82948; 83605; 83615; 83735; 83880; 84443; 84484; 85025; 85055; 85610; 86140; 87040; 87086; 93005; 96365; 96375; 97116; 97161; 97165; 97530; 97535; 99285; A9270; C9803; J0456; J0696; J1650; J3475; J7030; U0003; U0005

== ENCOUNTER 2021-01-12 11:53 | Inpatient (IN) | payer MEDICARE, OTHER, SELFPAY ==
[2021-01-12] VITALS (9 sets, daily range): BP systolic 118–132; BP diastolic 55–101; PULSE 66–86; RESP 12–20; TEMP 36.3–37.6; O2SAT 84–100; BMI 28.4
--- NOTE | ~2021-01-12 | XR_ITS ---
EXAMINATION: XR knee RT 3V DATE: 01/15/2021 13:25 INDICATION: Right knee pain. TECHNIQUE: 3 views of right knee were obtained. COMPARISON: None. FINDINGS: There is varus angulation at the knee. No fracture. There is moderate osteoarthritis of med ial compartment and mild osteoarthritis of lateral and patellofemoral compartments. There is a small knee joint effusion with loose bodies. IMPRESSION: 1. Moderate right knee osteoarthritis. 2. Small right knee joint effusion with loose bodies. Reviewed, dictated and finalized at location A.
--- NOTE | ~2021-01-12 | XR_ITS ---
EXAMINATION: XR barium swallow modified DATE: 01/13/2021 12:01 INDICATION: Recurrent pneumonia TECHNIQUE: Modified barium esophagram was performed by myself to administered fluoroscopy, in conjun ction with speech pathologist who administered barium in varying consistencies as per speech patholog ist documentation. This was recorded on tape. A single fluoroscopic spot image was recorded. The DAP for this procedure was 2.263 Gycm2. Fluoroscopy exposure time was 2.8 minutes. FINDINGS: Oral stage: Adequate function. Pharyngeal phase: Reduced tongue base retraction. Laryngeal penetration: None. Aspiration: None. Laryngeal sensitivity: Present. IMPRESSION: Essentially normal modified barium swallow. Please refer to speech pathologist findings a nd specific feeding recommendations. Reviewed, dictated and finalized at location A. IMPRESSION: Essentially normal modified barium swallow. Please refer to speech pathologist findings and specific feeding recommendations.
--- NOTE | ~2021-01-12 | CT_ITS ---
EXAMINATION: CT chest abdomen w con EXAM DATE: 01/13/2021 09:47 INDICATION: Recurrent pneumonia. TECHNIQUE: Spiral CT of the chest and abdomen was performed following intravenous injection of 100 mL Omnipaque 350. Axial, coronal and sagittal images chest and abdomen were reviewed. Coronal maximum intensity pixel images of chest reviewed. The dose-length product (DLP) for this examination was 67 4.48 mGy-cm. The exposure was tailored according to patient size (auto mA exposure control), and ite rative reconstruction (ASIR) was used as additional dose reduction technique. Correlation is made to chest x-ray 01/12/2021. FINDINGS: CHEST: There our regions of mild intralobular septal thickening, could be mild interstitial lung dis ease consistent with Nonspecific Interstitial Pneumonitis (NSIP) pattern interstitial lung disease wi th many possible underlying etiologies including collagen vascular disease, medications/drugs, prior viral infection (COVID-19), hypersensitivity pneumonitis, idiopathic etiologies. There is no conflu ent consolidation or evidence of acute airspace disease. There are no pleural or pericardial effusio ns. Tracheobronchial tree is patent. There is no mediastinal, hilar or axillary lymphadenopathy. There is no pneumothorax. Heart is normal in size. There are dense mitral annular calcifications. No central pulmonary emboli. There is mild coronary arterial calcification, arterial sclerosis. ABDOMEN: Mildly dilated portal vein. There is hepatic steatosis without suspicious focal lesion iden tified. Spleen, adrenal glands, pancreas are unremarkable. There is supraumbilical small anterior abd ominal wall hernia. There are cholecystectomy clips. Portal and splenic veins are patent. Kidneys enhance symmetrically. There is no hydronephrosis. There are renal hypodensities too small to charac terize by CT, statistically most likely cysts. There may be some small regions of left renal cortical scarring. There is no retroperitoneal lymphadenopathy. There is mild scattered arteriosclerotic disease. The stomach and small bowel are unremarkable. There is expected amount of colonic stool. No free i ntraperitoneal gas. There are no osteoblastic or osteolytic lesions identified. IMPRESSION: 1. Regions of interlobular septal thickening, appearance most consistent with mild interstitial lung disease. 2. Hepatic steatosis. Possible portal hypertension. 3. Small supra umbilical fat-containing hernia. Reviewed, dictated and finalized at location B.
--- NOTE | ~2021-01-12 | CT_ITS ---
EXAMINATION: CT brain wo con INDICATION: Confusion COMPARISON: 12/13/2020 TECHNIQUE: Standard unenhanced head CT. The dose-length product (DLP) was 605.33 mGy-cm. The mA was a djusted according to patient size. Iterative reconstruction technique was employed. FINDINGS: There is no acute intraparenchymal hemorrhage. No evidence of mass lesion. No evidence of a cute infarction. There is mild periventricular and subcortical hypodensity probably related to small vessel ischemic disease. There is mild prominence of the sulci and ventricles related to cerebral atr ophy. Intracranial calcified cerebral atherosclerosis is noted. There are no extra-axial collections. There is no mass effect or midline shift. Changes in the globes are likely from ocular lens surgery. The visualized sinuses and mastoid air cells are well aerated. IMPRESSION: 1. No acute intracranial abnormality. 2. Age related findings. Reviewed, dictated and finalized at location A.
--- NOTE | ~2021-01-12 | XR_ITS ---
XR chest 1V portable DATE: 01/12/2021 14:39 INDICATION: Chest pain TECHNIQUE: Portable AP chest on 01/12/2021 at 1433 hours COMPARISON: 12/13/2020 portable AP chest at 1410 hours FINDINGS: There are patchy infiltrates involving primarily the mid and to a greater extent lower lung zones, relatively stable in appearance since 12/13/2020, consistent with pulmonary edema, pneumonia, aspiration pneumonitis and/or chronic interstitial changes. Heart size is not optimally evaluated on AP projection because of magnification. There is pulmonary v ascular redistribution which may indicate mild pulmonary venous hypertension, in addition to mild pro minence of the minor fissure which may indicate mild subpleural edema. There is aortic calcification and mild unfolding. Minimal pleural effusions are suggested. Diffuse osteopenia. Degenerative spurring of the thoracic spine. Mild osteoarthritic change of the le ft glenohumeral joint. IMPRESSION: Pulmonary vascular redistribution, prominence of minor fissure, suggesting pulmonary veno us hypertension and subpleural edema. Small pleural effusions are suggested. Infiltrates in the mid and primarily the lower lung zones may be due to pulmonary edema; differential diagnosis includes pneumonia, aspiration pneumonitis and/or chronic interstitial changes Little interval change since 12/13/2020 Reviewed, dictated and finalized at location A. IMPRESSION: Pulmonary vascular redistribution, prominence of minor fissure, sug gesting pulmonary venous hypertension and subpleural edema. Small pleural effus ions are suggested. Infiltrates in the mid and primarily the lower lung zones may be due to pulmona ry edema; differential diagnosis includes pneumonia, aspiration pneumonitis and /or chronic interstitial changes Little interval change since 12/13/2020
--- NOTE | 2021-01-12 12:12 | ECG_ITS ---
Measurements Intervals [place] Rate: 70 P: 22 SD: 160 QRS: -32 QRSD: 120 T: 91 QT: 402 QTc: 437 Interpretive Statements SINUS RHYTHM LEFT AXIS DEVIATION INTRAVENTRICULAR CONDUCTION DELAY LEFT VENTRICULAR HYPERTROPHY AND ST-T CHANGE MINIMAL Q WAVES- HIGH LATERAL LEADS BASELINE WANDER- I, II BORDERLINE ECG Electronically Signed On 01-12-2021 23:34:15 CDT by Pual Frederick D.O.
--- NOTE | 2021-01-12 12:37 | ED.AMS ---
HPI - Altered Mental Status General Chief Complaint: Altered Mental Status Stated Complaint: ams Time Seen by Provider: 01/12/21 12:08 Source: patient Mode of arrival: ambulatory Limitations: no limitations History of Present Illness HPI narrative: Patient is a 75-year-old female brought in by EMS due to altered mental status. Patient is from the memory care unit at [facility]. Patient denies any headache, dizziness, chest pain, shortness of breath, abdominal pain, nausea, vomiting, diarrhea or urinary symptoms. Patient is a very poor historian. Related Data Home Medications Medication Instructions Recorded Confirmed Calcium 600 + D(3) 2 tablet PO DAILY 12/13/20 12/13/20 ascorbic acid (vitamin C) [Vitamin 500 mg PO DAILY 12/13/20 12/13/20 C] aspirin 81 mg PO DAILY 12/13/20 12/13/20 buspirone 7.5 mg PO BID 12/13/20 12/13/20 cetirizine 10 mg PO DAILY 12/13/20 12/13/20 cholecalciferol (vitamin D3) 25 mcg PO DAILY 12/13/20 12/13/20 [Vitamin D3] docusate sodium 100 mg PO DAILY 12/13/20 12/13/20 famotidine 10 mg PO DAILY 12/13/20 12/13/20 fluticasone propionate 50 mcg INTRANASAL DAILY 12/13/20 12/13/20 levothyroxine 25 mcg PO DAILY 12/13/20 12/13/20 modafinil 150 mg PO QAM 12/13/20 12/13/20 modafinil See Rx Instructions .ROUTE .COMPLEX 12/13/20 12/13/20 montelukast 10 mg PO DAILY 12/13/20 12/13/20 ropinirole 1 mg PO HS 12/13/20 12/13/20 sertraline 50 mg PO DAILY 12/13/20 12/13/20 simvastatin 10 mg PO HS 12/13/20 12/13/20 Allergies Allergy/AdvReac Type Severity Reaction Status Date / Time No Known Allergies Allergy Verified 01/12/21 12:13 Review of Systems Review of Systems: All systems reviewed & are unremarkable except as noted in HPI and below ROS unobtainable: Yes unobtainable due to mental status Constitutional: Constitutional: Reports as per HPI [facility] Past Medical History Medical History Depression with anxiety Diverticulitis Hyperlipidemia Hypothyroidism Narcolepsy Restless leg Surgical History Surgical History H/O lumpectomy H/O: hysterectomy History of total knee arthroplasty Hx of cholecystectomy S/P colectomy Family History Family History Father Bone cancer Mother Cerebrovascular accident Other Unknown family medical history Social History Social History Social History: She is . she is listed as a full.She has two children. nonsmoker. no alcohol. she retired from [employer].Mary horne is the poa who is the daughter Exam Const: General: cooperative, healthy appearing, comfortable, no acute distress, well developed, alert and awake Orientation/consciousness: No confusion Limitations: no limitations HENMT: Head: normal to inspection, normocephalic and atraumatic Ears: hearing grossly normal bilaterally, TM normal on the right and TM normal on the left General nose exam: Normal external nose present, Normal nares present and No nasal discharge present Face and sinus: normal facial exam Mouth: Yes Normal oral and palatal mucosa present, Yes lip normal, Yes tongue normal and Yes oropharynx normal Throat: posterior oropharynx normal, tonsils normal and uvula midline Eyes: General: appearance normal, both eyes and all related structures Pupils: Equal, round and reactive pupils present EOM: EOMs intact bilaterally Neck: Neck: normal visual inspection, full ROM, no lymphadenopathy and no meningeal signs Chest: Chest palpation & inspection: normal inspection of the chest Resp: Effort & Inspection: normal respiratory effort, able to speak in complete sentences, no respiratory distress and not tachypneic Auscultation: clear to auscultation bilaterally, no crackles, no rales, no rhonchi and no wheezes Cardio: Rate: regular rate Rhythm: regular rhythm G
--- NOTE | 2021-01-12 12:51 | PC.NURSE ---
pt difficult stick, multiple attempts made by staff to obtain labs. [employer] called.
[2021-01-12 13:19] LABS: Basophils Absolute Auto 0.1 K/mm3 (0.0-0.1); Basophils Percent Auto 0.4 % (0.2-1.2); Eosinophils Absolute Auto 0.2 K/mm3 (0-0.3); Eosinophils Percent Auto 0.8 % (0-4.4); Hematocrit 41.4 % (37.0-47.0); Hemoglobin 14.2 g/dL (12.0-15.0); Immature Granulocyte Absolute 0.17 K/mm3 (0.00-0.031); Immature Granulocyte Percent A 0.8 % (0-0.5); Immature Platelet Fraction Pct 9.9 % (0.9-11.2); Lymphocytes Absolute Auto 1.85 K/mm3 (0.9-3.2); Lymphocytes Percent Auto 8.5 % (18.3-44.2); Mean Corpuscular HGB Conc 34.3 g/dl (32-36); Mean Corpuscular Hemoglobin 31.6 pg (26-34); Mean Corpuscular Volume 92.2 fl (80-100); Mean Platelet Volume 11.7 fl (7.4-10.4); Monocytes Percent Auto 4.7 % (2.6-8.5); Neutrophils Absolute Auto 18.5 K/mm3 (1.3-6.7); Neutrophils Percent Auto 84.8 % (45.5-73.1); Platelet Count Result 121 k/mm3 (150-375); Red Blood Count 4.49 M/mm3 (4.2-5.4); Red Cell Distribution Width 13.3 % (11.5-14.5); White Blood Count 21.8 K/mm3 (4.5-10.0)
[2021-01-12 13:47] LABS: Add Urine Microscopic? NO; Appearance Urine Clear (Clear); Bilirubin Urine Negative (Negative); Blood Urine Negative (Negative); Color Urine Yellow (Yellow); Glucose Urine UA Negative (Negative); Ketones Urine Negative (Negative); Leukocyte Esterase Ur Negative LEU/UL (Negative); Nitrate Urine Negative (Negative); Protein Urine Negative (Negative); Specific Grav Ur 1.012 (1.001-1.035); Urobilinogen Urine Negative mg/dL (<2.0)
--- NOTE | 2021-01-12 14:40 | PC.NURSE ---
German Vega in lab, still working on cmp.
[2021-01-12 15:02] LABS: Troponin I 0.013 ng/mL (0.000-0.034)
[2021-01-12 15:24] LABS: Lactic Acid Reflex 2.1 mmol/L (0.7-2.1)
[2021-01-12 15:32] LABS: Alanine Aminotransferase 22 U/L (4-35); Albumin Level 4.4 g/dL (3.5-5.1); Alkaline Phosphatase 125 U/L (38-126); Anion Gap 13 mmol/L (8-16); Aspartate Amino Transferase 41 U/L (14-36); Bilirubin,Total 1.7 mg/dL (0.2-1.3); Blood Urea Nitrogen 19 mg/dL (7-17); Carbon Dioxide 22 mmol/L (22-30); Chloride 108 mmol/L (98-107); Estimated CRCL calculation 46 ml/min; Estimated Glomerular Filt Rate > 60; Glucose 146 mg/dL (65-110); Potassium 4.1 mmol/L (3.4-5.0); Sodium 143 mmol/L (137-145)
[2021-01-12 18:12] LABS: Reflex Lactic Acid Yes or No Add Lactic
--- NOTE | 2021-01-12 19:13 | ADMGEN ---
This patient, Aleta Howard, was admitted to Medical Room 342-01. Patient/family oriented to hospital policies and general routines including ID bracelet, bed and alarms, visiting hours, pain management, procedures, bathroom and other care routines, personal items, smoking policy, room service/diet, and visiting hours. Information on how to activate the Rapid Response Team has been discussed. Patient/Family are encouraged to report perceived risks to care and to ask questions if they do not understand what they are told or what they should do.
[2021-01-12] MEDS: LACTATED RINGERS 1,000 ML 75 ML IV CONT (19:19)
--- NOTE | 2021-01-12 21:32 | PM.IMHP ---
H&P: HPI History of Present Illness Date/Time: 01/12/21 21:32 this is a 75-year-old female who has a history of dementia and is living at [facility]. The patient was recently discharged from here 1 month ago for community-acquired pneumonia and had been treated at that time. However the patient was brought back into the emergency room today due to altered mental status. She also has a history of narcolepsy. She denies any headache, dizziness, shortness of breath, abdominal pain, nausea, chest pain, vomiting, diarrhea, or any urinary symptoms. The patient is a very poor historian. She is having difficulty answering my questions. Her white count was noted to be 21.8. Blood cultures have been obtained. Her temperature is 37.6?. The patient had been fully vaccinated for COVID-19. Chest x-ray was read as pulmonary vasculature redistribution, prominence of minor fissure, suggesting pulmonary versus hypertension and subpleural edema. Small pleural effusions are suggested. Infiltrates in the mid and primary the lower lung zones may be due to pulmonary edema. Differential diagnosis includes pneumonia, aspiration pneumonia INR chronic interstitial changes. Little change since 12/13/2020. The patient was given a azithromycin and Rocephin in the emergency room for community-acquired pneumonia. The patient is being admitted to observation status on the date of service of 01/12/2021. Chief Complaint: Altered mental status Review of Systems Review of Systems: All systems reviewed & are unremarkable except as noted in HPI and below Constitutional: Constitutional: Reports as per HPI and Reports no additional constitutional complaints Eyes: Eyes: Reports as per HPI and Reports no additional eye complaints ENT: Reports system reviewed and no additional complaints, except as documented and Reports Normal hearing present Cardiovascular: Cardiovascular: Reports no additional cardiovascular complaints Respiratory: Respiratory: Reports no additional respiratory complaints and Reports no additional respiratory complaints Gastrointestinal: Gastrointestinal: Reports as per HPI and Reports no additional gastrointestinal complaints Musculoskeletal: Musculoskeletal: Reports no additional musculoskeletal complaints Integumentary/Breasts: Skin/Breast: Reports system reviewed and no additional complaints, except as docu and Reports as per HPI Neurologic: Reports system reviewed and no additional complaints, except as documented, Reports as per HPI and Reports Normal hearing present Psychiatric: Psychiatric: Reports no additional psychiatric complaints and Reports as per HPI Endocrine: Endocrine: Reports no additional endocrine complaints Hematologic/Lymphatic: Hematologic/Lymphatic: Reports no additional hematologic/lymphatic complaints Allergic/Immunologic: Allergic/Immunologic: Reports no additional allergic/immunologic complaints [facility] Past Medical History Medical History (Updated 01/12/21 @ 22:07 by Sydnie Otto NP) Dementia Depression with anxiety Diverticulitis DM2 (diabetes mellitus, type 2) History of CVA (cerebrovascular accident) Hyperlipidemia Hypothyroidism Narcolepsy Restless leg Surgical History Surgical History H/O lumpectomy H/O: hysterectomy History of total knee arthroplasty Hx of cholecystectomy S/P colectomy Family History Family History Father Bone cancer Mother Cerebrovascular accident Other Unknown family medical history Social History Social History Social History: She is . she is listed as a full.She has two children. nonsmoker. no alcohol. she retired from [employer].Mary horne is the poa who is the daughter Smoking status: Never smoker Alcohol intake: unknown Substance use: never Substance use type: do
[2021-01-12] MEDS: OXYBUTYNIN CHLORIDE 5 MG TABLET PO (22:56)
[2021-01-12] MEDS: prednisoLONE ACETATE 1% OPHTH 5 ML 1 DROP EACH EYE (22:56)
[2021-01-12] MEDS: rOPINIRole HCL 1 MG TABLET PO (22:56)
[2021-01-12] MEDS: SIMVASTATIN 10 MG TABLET PO (22:56)
[2021-01-13] VITALS (12 sets, daily range): BP systolic 104–135; BP diastolic 54–58; PULSE 66–78; RESP 16–28; TEMP 36.1–36.6; O2SAT 93–100
[2021-01-13] MEDS: IPRATROPIUM BR 0.02% INH SOLN 0.5 MG/2.5 ML VIAL INHALATION ×4 (02:36→19:43)
[2021-01-13] MEDS: ALBUTEROL SULFATE NEB 2.5 MG/0.5 ML INH INHALATION ×4 (02:36→19:43)
[2021-01-13] MEDS: LEVOTHYROXINE SODIUM 25 MCG TABLET PO (05:43)
[2021-01-13 06:18] LABS: Basophils Percent Auto 0.3 % (0.2-1.2); Eosinophils Absolute Auto 0.3 K/mm3 (0-0.3); Hematocrit 38.6 % (37.0-47.0); Hemoglobin 12.9 g/dL (12.0-15.0); Immature Granulocyte Absolute 0.05 K/mm3 (0.00-0.031); Immature Granulocyte Percent A 0.4 % (0-0.5); Immature Platelet Fraction Pct 7.2 % (0.9-11.2); Lymphocytes Absolute Auto 1.01 K/mm3 (0.9-3.2); Mean Corpuscular HGB Conc 33.4 g/dl (32-36); Mean Corpuscular Hemoglobin 30.9 pg (26-34); Mean Corpuscular Volume 92.6 fl (80-100); Mean Platelet Volume 11.9 fl (7.4-10.4); Monocytes Absolute Auto 0.4 K/mm3 (0.1-0.6); Monocytes Percent Auto 2.9 % (2.6-8.5); Neutrophils Absolute Auto 10.9 K/mm3 (1.3-6.7); Neutrophils Percent Auto 86.4 % (45.5-73.1); Platelet Count Result 112 k/mm3 (150-375); Red Blood Count 4.17 M/mm3 (4.2-5.4); Red Cell Distribution Width 13.4 % (11.5-14.5); White Blood Count 12.6 K/mm3 (4.5-10.0)
[2021-01-13 06:27] LABS: Lactic Acid Reflex 1.4 mmol/L (0.7-2.1)
[2021-01-13 07:52] LABS: Glucose Point of Care 119 mg/dl (65-105)
[2021-01-13 08:36] LABS: Alanine Aminotransferase 28 U/L (4-35); Albumin Level 3.5 g/dL (3.5-5.1); Alkaline Phosphatase 96 U/L (38-126); Anion Gap 7 mmol/L (8-16); Aspartate Amino Transferase 50 U/L (14-36); Bilirubin,Total 1.7 mg/dL (0.2-1.3); Blood Urea Nitrogen 20 mg/dL (7-17); Calcium 9.1 mg/dL (8.4-10.2); Carbon Dioxide 28 mmol/L (22-30); Chloride 107 mmol/L (98-107); Estimated CRCL calculation 40 ml/min; Estimated Glomerular Filt Rate 49; Glucose 130 mg/dL (65-110); Lipase 27 U/L (23-300); Magnesium 1.7 mg/dL (1.6-2.3); Potassium 3.5 mmol/L (3.4-5.0); Sodium 142 mmol/L (137-145)
[2021-01-13 08:48] LABS: Lactate Dehydrogenase 524 U/L (313-618)
[2021-01-13] MEDS: LACTATED RINGERS 1,000 ML 75 ML IV CONT (09:23)
[2021-01-13] MEDS: FLUTICASONE PROPIONATE 0.05% NA SPR 16 GM BTL (*BKC) 1 SPRAY NASAL (10:16)
[2021-01-13] MEDS: OXYBUTYNIN CHLORIDE 5 MG TABLET PO ×3 (10:17→16:15)
[2021-01-13] MEDS: MONTELUKAST SODIUM 10 MG TABLET PO (10:17)
[2021-01-13] MEDS: SERTRALINE HCL 50 MG TABLET PO (10:17)
[2021-01-13] MEDS: FAMOTIDINE 10 MG TABLET PO (10:17)
[2021-01-13] MEDS: busPIRone HCL 2.5 MG TABLET PO ×2 (10:17→20:46)
[2021-01-13] MEDS: metFORMIN HCL 500 MG TABLET PO ×2 (10:17→16:15)
[2021-01-13] MEDS: busPIRone HCL 5 MG TABLET PO ×2 (10:18→20:46)
[2021-01-13] MEDS: prednisoLONE ACETATE 1% OPHTH 5 ML 1 DROP EACH EYE ×2 (10:18→20:46)
[2021-01-13] MEDS: DOCUSATE SODIUM 100 MG CAPSULE PO (10:18)
[2021-01-13] MEDS: ASPIRIN 81 MG CHEWABLE TABLET PO (10:18)
[2021-01-13] MEDS: ASCORBIC ACID 500 MG TABLET PO (10:18)
[2021-01-13] MEDS: modafiniL (*CRX) 100 MG TABLET 150 MG PO (10:23)
--- NOTE | 2021-01-13 12:17 | PCSTNOTE ---
Please refer to the Modified Barium Swallow Evaluation in the EMR.
[2021-01-13 12:18] LABS: Glucose Point of Care 301 mg/dl (65-105)
[2021-01-13] MEDS: modafiniL (*CRX) 100 MG TABLET 50 MG PO (13:27)
[2021-01-13] MEDS: INSULIN ASPART (*BKC) 100 UNITS/ML SUB-Q (13:27)
--- NOTE | 2021-01-13 15:00 | PM.IMPN ---
Progress Note: A&P Assessment and Plan (1) Pneumonia: Qualifiers: Laterality: bilateral Lung location: lower lobe of lung Pneumonia type: due to unspecified organism Qualified Code(s): J18.9 - Pneumonia, unspecified organism Code(s): J18.9 - Pneumonia, unspecified organism Status: Acute Assessment and Plan: CT pulmonary S the patient recently had pneumonia approximately 1 month ago. swallow study and modified barium swallow showed good swallow with modifications IV antibiotic to Zosyn for the possibility of aspiration white count of 12.6 Blood cultures are pending Trend labs (2) Acute metabolic encephalopathy: Code(s): G93.41 - Metabolic encephalopathy Status: Acute Assessment and Plan: Patient is in a memory care unit continue with her home medications for dementia Could be related to the infectious process, dementia or depression or any combination thereof Head CT: No acute intercranial findings, age related findings. (3) Depression with anxiety: Code(s): F41.8 - Other specified anxiety disorders Status: Chronic Assessment and Plan: Continue with home medications. (4) Hypothyroidism: Code(s): E03.9 - Hypothyroidism, unspecified Status: Chronic Assessment and Plan: TSH 1.520 Continue with her levothyroxine. 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 (8) History of CVA (cerebrovascular accident): Code(s): Z86.73 - Personal history of transient ischemic attack (TIA), and cerebral infarction without residual deficits Status: Chronic Assessment and Plan: Continue with home medication (9) Dementia: Code(s): F03.90 - Unspecified dementia without behavioral disturbance Status: Chronic Assessment and Plan: Continue with her home medication (10) DM2 (diabetes mellitus, type 2): Code(s): E11.9 - Type 2 diabetes mellitus without complications Status: Chronic Assessment and Plan: Glucose 130 Accu-Cheks AC and HS. Continue with her metformin (11) Fluid overload: Code(s): E87.70 - Fluid overload, unspecified Status: Acute Assessment and Plan: Chest xray indicates possible pulmonary edema Will give her one dose of lasix 40mg IV once Strict I&Os BNP in the am (12) HANS (acute kidney injury): Code(s): N17.9 - Acute kidney failure, unspecified Status: Acute Assessment and Plan: BUN/Cr 20/1.10 Strict I&Os Trend labs Looks like baseline is 0.7-0.9 Time Spent With Patient Time with patient: Greater than 35 minutes Subjective Date/time seen: 01/13/21 15:00 Interval history: Date/Time: 01/12/21 21:32 This is a 75-year-old female who has a history of dementia and is living at [facility]. The patient was recently discharged from here 1 month ago for community-acquired pneumonia and had been treated at that time. However the patient was brought back into the emergency room today due to altered mental status. She also has a history of narcolepsy. She denies any headache, dizziness, shortness of breath, abdominal pain, nausea, chest pain, vomiting, diarrhea, or any urinary symptoms. The patient is a very poor historian. She is having difficulty answering my questions. Her white count was noted to be 21.8. Blood cultures have been obtained. Her temperature is 37.6?. The patient had been full
--- NOTE | 2021-01-13 15:00 | P.PNIM_ITS ---
Progress Note: A&P Assessment and Plan (1) Pneumonia: Qualifiers: Laterality: bilateral Lung location: lower lobe of lung Pneumonia type: due to unspecified organism Qualified Code(s): J18.9 - Pneumonia, unspecified organism Code(s): J18.9 - Pneumonia, unspecified organism Status: Acute Assessment and Plan: * CT pulmonary S the patient recently had pneumonia approximately 1 month ago. * swallow study and modified barium swallow showed good swallow with modifications * IV antibiotic to Zosyn for the possibility of aspiration * white count of 12.6 * Blood cultures are pending * Trend labs (2) Acute metabolic encephalopathy: Code(s): G93.41 - Metabolic encephalopathy Status: Acute Assessment and Plan: * Patient is in a memory care unit * continue with her home medications for dementia * Could be related to the infectious process, dementia or depression or any combination thereof * Head CT: No acute intercranial findings, age related findings. (3) Depression with anxiety: Code(s): F41.8 - Other specified anxiety disorders Status: Chronic Assessment and Plan: * Continue with home medications. (4) Hypothyroidism: Code(s): E03.9 - Hypothyroidism, unspecified Status: Chronic Assessment and Plan: * TSH 1.520 * Continue with her levothyroxine. 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 (8) History of CVA (cerebrovascular accident): Code(s): Z86.73 - Personal history of transient ischemic attack (TIA), and cerebral infarction without residual deficits Status: Chronic Assessment and Plan: * Continue with home medication (9) Dementia: Code(s): F03.90 - Unspecified dementia without behavioral disturbance Status: Chronic Assessment and Plan: * Continue with her home medication (10) DM2 (diabetes mellitus, type 2): Code(s): E11.9 - Type 2 diabetes mellitus without complications Status: Chronic Assessment and Plan: * Glucose 130 * Accu-Cheks AC and HS. * Continue with her metformin (11) Fluid overload: Code(s): E87.70 - Fluid overload, unspecified Status: Acute Assessment and Plan: * Chest xray indicates possible pulmonary edema * Will give her one dose of lasix 40mg IV once * Strict I&Os * BNP in the am (12) HANS (acute kidney injury): Code(s): N17.9 - Acute kidney failure, unspecified Status: Acute Assessment and Plan: * BUN/Cr 20/1.10 * Strict I&Os * Trend labs * Looks like baseline is 0.7-0.9 Time Spent With Patient Time with patient: Greater than 35 minutes Subjective Date/time seen: 01/13/21 15:00 Interval history: Date/Time: 01/12/21 21:32 This is a 75-year-old female who has a history of dementi
[2021-01-13 16:51] LABS: Glucose Point of Care 181 mg/dl (65-105)
[2021-01-13] MEDS: rOPINIRole HCL 1 MG TABLET PO (20:46)
[2021-01-13] MEDS: SIMVASTATIN 10 MG TABLET PO (20:47)
[2021-01-13 21:06] LABS: Glucose Point of Care 151 mg/dl (65-105)
[2021-01-14] VITALS (11 sets, daily range): BP systolic 93–131; BP diastolic 43–79; PULSE 57–76; RESP 14–20; TEMP 35.8–36.6; O2SAT 93–100
--- NOTE | 2021-01-14 | ECHO_ITS ---
Patient Info Name: Aleta Howard Age: 75 years : 1945 Gender: Female Ht: 64 in Wt: 165 lbs BSA: 1.86 m2 HR: 60 bpm BP: 131 / 79 mmHg Heart Rhythm: Sinus Rhythm Exam Date: 01/14/2021 2:43 PM Exam Location: [facility] Pulmonary Patient Status: Inpatient Admit Date: 01/13/2021 Staff Ordering Physician: Alfredo Coppola Furniture Servicer: Malik Garces RDCS, RT Attending Provider: Lito Man MD Referring Physician: Abdon ROMERO; Exam Type: CA echo doppler color flow Study Info Indications R60.1 - Generalized edema Complete two-dimensional, color flow and Doppler transthoracic echocardiogram is performed. Strain analysis performed. Summary 1. Complete two-dimensional, color flow and Doppler transthoracic echocardiogram is performed. 2. There is mild concentric increased left ventricular wall thickness. 3. Left ventricular systolic function is normal, estimated at 65-70%. 4. Left atrial chamber dimension is mildly enlarged. 5. There is mild aortic valve sclerosis. 6. The mitral valve annulus is severely calcified. Left Ventricle Left ventricular chamber dimension is normal. Left ventricular systolic function is normal, estimated at 65-70%. There is mild concentric increased left ventricular wall thickness. The left ventricular diastolic function is grade II diastolic dysfunction. Right Ventricle Right ventricular chamber dimension is normal. Left Atria Left atrial chamber dimension is mildly enlarged. Right Atria Right atrial chamber dimension is normal. Aortic Valve The aortic valve is trileaflet. There is mild aortic valve sclerosis. Pulmonic Valve The pulmonic valve is not well visualized. Mitral Valve The mitral valve has normal leaflets. There is trace mitral valve regurgitation. The mitral valve annulus is severely calcified. Tricuspid Valve The tricuspid valve leaflets are normal. Pericardium/Pleural The pericardium appears normal. Inferior Vena Cava Dilated inferior vena cava with <50% collapse upon inspiration consistent with Empty right atrial pressure, Empty. Aorta The aortic root size at the sinus of Valsalva is normal. Left Ventricular Outflow Tract Name Value Normal LVOT 2D LVOT Diameter 1.9 cm LVOT Doppler LVOT Peak Gradient 4 mmHg LVOT Mean Gradient 2 mmHg LVOT VTI 22 cm LVOT VTI/AV VTI Ratio 0.7 LVOT Stroke Volume 61 ml LVOT CO 3.6 l/min LVOT CI 1.9 l/min/m2 Mitral Valve Name Value Normal MV Doppler MV Peak Gradient 1 mmHg MV Mean Gradient 0 mmHg MV Decel [place] 332 cm/s2 MV PHT
[2021-01-14] MEDS: IPRATROPIUM BR 0.02% INH SOLN 0.5 MG/2.5 ML VIAL INHALATION ×4 (01:41→21:06)
[2021-01-14] MEDS: ALBUTEROL SULFATE NEB 2.5 MG/0.5 ML INH INHALATION ×4 (01:41→21:06)
[2021-01-14] MEDS: LACTATED RINGERS 1,000 ML 75 ML IV CONT ×2 (01:54→17:22)
[2021-01-14] MEDS: LEVOTHYROXINE SODIUM 25 MCG TABLET PO (05:41)
[2021-01-14 08:14] LABS: Basophils Percent Auto 0.6 % (0.2-1.2); Eosinophils Absolute Auto 0.4 K/mm3 (0-0.3); Eosinophils Percent Auto 5.4 % (0-4.4); Hemoglobin 11.5 g/dL (12.0-15.0); Immature Granulocyte Absolute 0.03 K/mm3 (0.00-0.031); Immature Granulocyte Percent A 0.5 % (0-0.5); Immature Platelet Fraction Pct 6.7 % (0.9-11.2); Lymphocytes Absolute Auto 1.91 K/mm3 (0.9-3.2); Lymphocytes Percent Auto 29.7 % (18.3-44.2); Mean Corpuscular HGB Conc 33.8 g/dl (32-36); Mean Corpuscular Hemoglobin 31.4 pg (26-34); Mean Corpuscular Volume 92.9 fl (80-100); Mean Platelet Volume 11.4 fl (7.4-10.4); Monocytes Absolute Auto 0.6 K/mm3 (0.1-0.6); Monocytes Percent Auto 9.5 % (2.6-8.5); Neutrophils Absolute Auto 3.5 K/mm3 (1.3-6.7); Neutrophils Percent Auto 54.3 % (45.5-73.1); Platelet Count Result 126 k/mm3 (150-375); Red Blood Count 3.66 M/mm3 (4.2-5.4); Red Cell Distribution Width 13.2 % (11.5-14.5); White Blood Count 6.4 K/mm3 (4.5-10.0)
[2021-01-14 08:17] LABS: Alanine Aminotransferase 36 U/L (4-35); Albumin Level 3.2 g/dL (3.5-5.1); Alkaline Phosphatase 88 U/L (38-126); Anion Gap 6 mmol/L (8-16); Aspartate Amino Transferase 40 U/L (14-36); Bilirubin,Total 0.9 mg/dL (0.2-1.3); Blood Urea Nitrogen 16 mg/dL (7-17); Calcium 8.8 mg/dL (8.4-10.2); Carbon Dioxide 29 mmol/L (22-30); Chloride 105 mmol/L (98-107); Estimated CRCL calculation 43 ml/min; Estimated Glomerular Filt Rate 54; Glucose 125 mg/dL (65-110); Magnesium 1.5 mg/dL (1.6-2.3); Potassium 3.6 mmol/L (3.4-5.0); Sodium 140 mmol/L (137-145)
[2021-01-14 08:27] LABS: Glucose Point of Care 128 mg/dl (65-105)
[2021-01-14] MEDS: metFORMIN HCL 500 MG TABLET PO ×2 (08:39→16:16)
[2021-01-14] MEDS: FLUTICASONE PROPIONATE 0.05% NA SPR 16 GM BTL (*BKC) 1 SPRAY NASAL (08:39)
[2021-01-14] MEDS: ASCORBIC ACID 500 MG TABLET PO (08:39)
[2021-01-14] MEDS: OXYBUTYNIN CHLORIDE 5 MG TABLET PO ×3 (08:39→16:16)
[2021-01-14] MEDS: prednisoLONE ACETATE 1% OPHTH 5 ML 1 DROP EACH EYE ×2 (08:39→21:03)
[2021-01-14] MEDS: FAMOTIDINE 10 MG TABLET PO (08:39)
[2021-01-14] MEDS: busPIRone HCL 2.5 MG TABLET PO ×2 (08:40→21:02)
[2021-01-14] MEDS: DOCUSATE SODIUM 100 MG CAPSULE PO (08:40)
[2021-01-14] MEDS: MONTELUKAST SODIUM 10 MG TABLET PO (08:40)
[2021-01-14] MEDS: SERTRALINE HCL 50 MG TABLET PO (08:40)
[2021-01-14] MEDS: busPIRone HCL 5 MG TABLET PO ×2 (08:40→21:03)
[2021-01-14] MEDS: ASPIRIN 81 MG CHEWABLE TABLET PO (08:40)
[2021-01-14] MEDS: modafiniL (*CRX) 100 MG TABLET 150 MG PO (08:45)
--- NOTE | 2021-01-14 11:00 | PM.IMPN ---
Progress Note: A&P Assessment and Plan (1) Pneumonia: Qualifiers: Laterality: bilateral Lung location: lower lobe of lung Pneumonia type: due to unspecified organism Qualified Code(s): J18.9 - Pneumonia, unspecified organism Code(s): J18.9 - Pneumonia, unspecified organism Status: Acute Assessment and Plan: CT pulmonary S the patient recently had pneumonia approximately 1 month ago. swallow study and modified barium swallow showed good swallow with modifications IV antibiotic to Zosyn for the possibility of aspiration Day 2.5 white count of 6.4 Blood cultures negative this far Trend labs (2) Fluid overload: Code(s): E87.70 - Fluid overload, unspecified Status: Acute Assessment and Plan: Chest xray indicates possible pulmonary edema Repeat the lasix x 1 Strict I&Os BNP 560 Echo ordered and pending (3) HANS (acute kidney injury): Code(s): N17.9 - Acute kidney failure, unspecified Status: Acute Assessment and Plan: BUN/Cr 16/1.0 Strict I&Os Trend labs Looks like baseline is 0.7-0.9 Could be CHF or dehydration Looks that renal function was responsive to lasix (4) DM2 (diabetes mellitus, type 2): Code(s): E11.9 - Type 2 diabetes mellitus without complications Status: Chronic Assessment and Plan: Glucose 125 Accu-Cheks AC and HS. Continue with her metformin (5) Depression with anxiety: Code(s): F41.8 - Other specified anxiety disorders Status: Chronic Assessment and Plan: Continue with home buspar, ativan,and paxil Seems to be controlled (6) Hypothyroidism: Code(s): E03.9 - Hypothyroidism, unspecified Status: Chronic Assessment and Plan: TSH 1.520 Continue with her levothyroxine. (7) Hyperlipidemia: Code(s): E78.5 - Hyperlipidemia, unspecified Status: Chronic Assessment and Plan: Continue with simvastatin (8) Restless leg: Code(s): G25.81 - Restless legs syndrome Status: Chronic Assessment and Plan: Continue with ropinirole (9) Narcolepsy: Code(s): G47.419 - Narcolepsy without cataplexy Status: Acute Assessment and Plan: Continue with her home medication. (10) History of CVA (cerebrovascular accident): Code(s): Z86.73 - Personal history of transient ischemic attack (TIA), and cerebral infarction without residual deficits Status: Chronic Assessment and Plan: Continue with home medication (11) Dementia: Code(s): F03.90 - Unspecified dementia without behavioral disturbance Status: Chronic Assessment and Plan: Continue with her home medication (12) Acute metabolic encephalopathy: Code(s): G93.41 - Metabolic encephalopathy Status: Acute Assessment and Plan: She seems to be at her baseline Patient is in a memory care unit continue with her home medications for dementia Could be related to the infectious process, dementia or depression or any combination thereof Head CT: No acute intercranial findings, age related findings. Time Spent With Patient Time with patient: Greater than 35 minutes Subjective Date/time seen: 01/14/21 11:00 Interval history: Date/Time: 01/12/21 21:32 This is a 75-year-old female who has a history of dementia and is living at [facility]. The patient was recently discharged from here 1 month ago for community-acquired pneumonia and had been treated at that time. However the patient was brought back into the emergency room today due to altered mental status. She also has a history of narcolepsy. She denies any headache, dizziness, shortness of breath, abdominal pain, nausea, chest pain, vomiting, diarrhea, or any urinary symptoms. The patient is a very poor historian. She is [place]
--- NOTE | 2021-01-14 11:00 | P.PNIM_ITS ---
Progress Note: A&P Assessment and Plan (1) Pneumonia: Qualifiers: Laterality: bilateral Lung location: lower lobe of lung Pneumonia type: due to unspecified organism Qualified Code(s): J18.9 - Pneumonia, unspecified organism Code(s): J18.9 - Pneumonia, unspecified organism Status: Acute Assessment and Plan: * CT pulmonary S the patient recently had pneumonia approximately 1 month ago. * swallow study and modified barium swallow showed good swallow with modifications * IV antibiotic to Zosyn for the possibility of aspiration Day 2.5 * white count of 6.4 * Blood cultures negative this far * Trend labs (2) Fluid overload: Code(s): E87.70 - Fluid overload, unspecified Status: Acute Assessment and Plan: * Chest xray indicates possible pulmonary edema * Repeat the lasix x 1 * Strict I&Os * BNP 560 * Echo ordered and pending (3) HANS (acute kidney injury): Code(s): N17.9 - Acute kidney failure, unspecified Status: Acute Assessment and Plan: * BUN/Cr 16/1.0 * Strict I&Os * Trend labs * Looks like baseline is 0.7-0.9 * Could be CHF or dehydration * Looks that renal function was responsive to lasix (4) DM2 (diabetes mellitus, type 2): Code(s): E11.9 - Type 2 diabetes mellitus without complications Status: Chronic Assessment and Plan: * Glucose 125 * Accu-Cheks AC and HS. * Continue with her metformin (5) Depression with anxiety: Code(s): F41.8 - Other specified anxiety disorders Status: Chronic Assessment and Plan: * Continue with home buspar, ativan,and paxil * Seems to be controlled (6) Hypothyroidism: Code(s): E03.9 - Hypothyroidism, unspecified Status: Chronic Assessment and Plan: * TSH 1.520 * Continue with her levothyroxine. (7) Hyperlipidemia: Code(s): E78.5 - Hyperlipidemia, unspecified Status: Chronic Assessment and Plan: * Continue with simvastatin (8) Restless leg: Code(s): G25.81 - Restless legs syndrome Status: Chronic Assessment and Plan: * Continue with ropinirole (9) Narcolepsy: Code(s): G47.419 - Narcolepsy without cataplexy Status: Acute Assessment and Plan: * Continue with her home medication. (10) History of CVA (cerebrovascular accident): Code(s): Z86.73 - Personal history of transient ischemic attack (TIA), and cerebral infarction without residual deficits Status: Chronic Assessment and Plan: * Continue with home medication (11) Dementia: Code(s): F03.90 - Unspecified dementia without behavioral disturbance Status: Chronic Assessment and Plan: * Continue with her home medication (12) Acute metabolic encephalopathy: Code(s): G93.41 - Metabolic encephalopathy Status: Acute Assessment and Plan: * She seems to be at her baseline * Patient is in a memory care unit * continue with her home medications for dementia * Could be related to the infectious process, dementia or depression or any comb ination thereof * Head CT: No acute intercranial findings, age related findings. Time Spent With Patient Time with patient: Greater than
[2021-01-14] MEDS: MECLIZINE HCL 25 MG TABLET PO (11:25)
[2021-01-14] MEDS: modafiniL (*CRX) 100 MG TABLET 50 MG PO (11:36)
[2021-01-14 11:39] LABS: Glucose Point of Care 215 mg/dl (65-105)
[2021-01-14] MEDS: INSULIN ASPART (*BKC) 100 UNITS/ML SUB-Q (11:41)
[2021-01-14 14:45] LABS: NT Pro B Type Natriuretic Pept 560 pg/mL (5-100)
[2021-01-14] MEDS: MAGNESIUM SULF 4 GM/WATER100ML 4 GM/100 ML BAG IVPB (16:11)
[2021-01-14] MEDS: FUROSEMIDE INJ 40 MG/4 ML VIAL IV PUSH (16:15)
[2021-01-14] MEDS: LOPERAMIDE HCL 2 MG CAPSULE PO (16:15)
[2021-01-14 16:23] LABS: Glucose Point of Care 128 mg/dl (65-105)
[2021-01-14] MEDS: rOPINIRole HCL 1 MG TABLET PO (21:02)
[2021-01-14] MEDS: SIMVASTATIN 10 MG TABLET PO (21:03)
[2021-01-14 22:54] LABS: Glucose Point of Care 181 mg/dl (65-105)
[2021-01-15] VITALS (12 sets, daily range): BP systolic 113–135; BP diastolic 60–63; PULSE 58–88; RESP 16–20; TEMP 36.2–36.4; O2SAT 94–100
[2021-01-15] MEDS: IPRATROPIUM BR 0.02% INH SOLN 0.5 MG/2.5 ML VIAL INHALATION ×4 (02:02→19:32)
[2021-01-15] MEDS: ALBUTEROL SULFATE NEB 2.5 MG/0.5 ML INH INHALATION ×4 (02:02→19:32)
[2021-01-15 06:18] LABS: Basophils Absolute Auto 0.1 K/mm3 (0.0-0.1); Basophils Percent Auto 0.7 % (0.2-1.2); Eosinophils Absolute Auto 0.4 K/mm3 (0-0.3); Eosinophils Percent Auto 4.3 % (0-4.4); Hematocrit 36.3 % (37.0-47.0); Hemoglobin 12.5 g/dL (12.0-15.0); Immature Granulocyte Absolute 0.04 K/mm3 (0.00-0.031); Immature Granulocyte Percent A 0.5 % (0-0.5); Lymphocytes Absolute Auto 1.87 K/mm3 (0.9-3.2); Lymphocytes Percent Auto 22.5 % (18.3-44.2); Mean Corpuscular HGB Conc 34.4 g/dl (32-36); Mean Corpuscular Hemoglobin 31.3 pg (26-34); Mean Platelet Volume 11.3 fl (7.4-10.4); Monocytes Absolute Auto 0.7 K/mm3 (0.1-0.6); Monocytes Percent Auto 7.9 % (2.6-8.5); Neutrophils Absolute Auto 5.3 K/mm3 (1.3-6.7); Neutrophils Percent Auto 64.1 % (45.5-73.1); Platelet Count Result 156 k/mm3 (150-375); Red Blood Count 3.99 M/mm3 (4.2-5.4); Red Cell Distribution Width 13.1 % (11.5-14.5); White Blood Count 8.3 K/mm3 (4.5-10.0)
[2021-01-15] MEDS: LEVOTHYROXINE SODIUM 25 MCG TABLET PO (06:19)
[2021-01-15 06:36] LABS: Alanine Aminotransferase 34 U/L (4-35); Albumin Level 3.8 g/dL (3.5-5.1); Alkaline Phosphatase 110 U/L (38-126); Anion Gap 11 mmol/L (8-16); Aspartate Amino Transferase 33 U/L (14-36); Blood Urea Nitrogen 16 mg/dL (7-17); Carbon Dioxide 28 mmol/L (22-30); Chloride 101 mmol/L (98-107); Estimated CRCL calculation 43 ml/min; Estimated Glomerular Filt Rate 54; Glucose 148 mg/dL (65-110); Magnesium 2.1 mg/dL (1.6-2.3); Potassium 3.4 mmol/L (3.4-5.0); Sodium 140 mmol/L (137-145)
[2021-01-15 07:51] LABS: Glucose Point of Care 146 mg/dl (65-105)
[2021-01-15] MEDS: busPIRone HCL 2.5 MG TABLET PO ×2 (09:30→21:25)
[2021-01-15] MEDS: ASPIRIN 81 MG CHEWABLE TABLET PO (09:31)
[2021-01-15] MEDS: ASCORBIC ACID 500 MG TABLET PO (09:31)
[2021-01-15] MEDS: SERTRALINE HCL 50 MG TABLET PO (09:31)
[2021-01-15] MEDS: DOCUSATE SODIUM 100 MG CAPSULE PO (09:31)
[2021-01-15] MEDS: FAMOTIDINE 10 MG TABLET PO (09:31)
[2021-01-15] MEDS: OXYBUTYNIN CHLORIDE 5 MG TABLET PO ×3 (09:31→17:17)
[2021-01-15] MEDS: metFORMIN HCL 500 MG TABLET PO ×2 (09:31→17:17)
[2021-01-15] MEDS: busPIRone HCL 5 MG TABLET PO ×2 (09:31→21:25)
[2021-01-15] MEDS: MONTELUKAST SODIUM 10 MG TABLET PO (09:31)
[2021-01-15] MEDS: FLUTICASONE PROPIONATE 0.05% NA SPR 16 GM BTL (*BKC) 1 SPRAY NASAL (09:32)
[2021-01-15] MEDS: prednisoLONE ACETATE 1% OPHTH 5 ML 1 DROP EACH EYE ×2 (09:32→21:25)
[2021-01-15] MEDS: modafiniL (*CRX) 100 MG TABLET 150 MG PO (09:34)
[2021-01-15] MEDS: ACETAMINOPHEN 325 MG TABLET 650 MG PO (10:59)
[2021-01-15 11:44] LABS: Glucose Point of Care 237 mg/dl (65-105)
--- NOTE | 2021-01-15 12:31 | P.PNIM_ITS ---
Progress Note: A&P Assessment and Plan (1) Pneumonia: Qualifiers: Laterality: bilateral Lung location: lower lobe of lung Pneumonia type: due to unspecified organism Qualified Code(s): J18.9 - Pneumonia, unspecified organism Code(s): J18.9 - Pneumonia, unspecified organism Status: Acute Assessment and Plan: * CT pulmonary the patient recently had pneumonia approximately 1 month ago. * swallow study and modified barium swallow showed good swallow with modifications * IV antibiotic to Zosyn for the possibility of aspiration Day #3 * white count of 8.3 * Blood cultures negative to date * Trend labs (2) Fluid overload: Code(s): E87.70 - Fluid overload, unspecified Status: Acute Assessment and Plan: * Chest xray indicates possible pulmonary edema * Repeat the lasix x 1 01/14/21 * Strict I&Os * BNP 560 * Echo showing normal EF 60-70%, mild concentric LVH, diastolic grade 2 dysfunction * Appears to be euvolemic at this time. (3) HANS (acute kidney injury): Code(s): N17.9 - Acute kidney failure, unspecified Status: Acute Assessment and Plan: * BUN/Cr 16/1.0. Stable. * Strict I&Os * Trend labs (4) DM2 (diabetes mellitus, type 2): Code(s): E11.9 - Type 2 diabetes mellitus without complications Status: Chronic Assessment and Plan: * Glucose 125 * Accu-Cheks AC and HS. * Continue with her metformin (5) Depression with anxiety: Code(s): F41.8 - Other specified anxiety disorders Status: Chronic Assessment and Plan: * Continue with home buspar, ativan,and paxil * Seems to be controlled (6) Hypothyroidism: Code(s): E03.9 - Hypothyroidism, unspecified Status: Chronic Assessment and Plan: * TSH 1.520 * Continue with her levothyroxine. (7) Hyperlipidemia: Code(s): E78.5 - Hyperlipidemia, unspecified Status: Chronic Assessment and Plan: * Continue with simvastatin (8) Restless leg: Code(s): G25.81 - Restless legs syndrome Status: Chronic Assessment and Plan: * Continue with ropinirole (9) Narcolepsy: Code(s): G47.419 - Narcolepsy without cataplexy Status: Acute Assessment and Plan: * Continue with her home medication. (10) History of CVA (cerebrovascular accident): Code(s): Z86.73 - Personal history of transient ischemic attack (TIA), and cerebral infarction without residual deficits Status: Chronic Assessment and Plan: * Continue with home medication (11) Dementia: Code(s): F03.90 - Unspecified dementia without behavioral disturbance Status: Chronic Assessment and Plan: * Continue with her home medication (12) Acute metabolic encephalopathy: Code(s): G93.41 - Metabolic encephalopathy Status: Acute Assessment and Plan: * She seems to be at her baseline * Patient is in a memory care unit * continue with her home medications for dementia * Could be related to the infectious process, dementia or depression or any combination thereof * Head CT: No acute intercranial findings, age related findings. (13) Right knee pain: Code(s): M25.561 - Pain in rig
--- NOTE | 2021-01-15 12:31 | PM.IMPN ---
Progress Note: A&P Assessment and Plan (1) Pneumonia: Qualifiers: Laterality: bilateral Lung location: lower lobe of lung Pneumonia type: due to unspecified organism Qualified Code(s): J18.9 - Pneumonia, unspecified organism Code(s): J18.9 - Pneumonia, unspecified organism Status: Acute Assessment and Plan: CT pulmonary the patient recently had pneumonia approximately 1 month ago. swallow study and modified barium swallow showed good swallow with modifications IV antibiotic to Zosyn for the possibility of aspiration Day #3 white count of 8.3 Blood cultures negative to date Trend labs (2) Fluid overload: Code(s): E87.70 - Fluid overload, unspecified Status: Acute Assessment and Plan: Chest xray indicates possible pulmonary edema Repeat the lasix x 1 01/14/21 Strict I&Os BNP 560 Echo showing normal EF 60-70%, mild concentric LVH, diastolic grade 2 dysfunction Appears to be euvolemic at this time. (3) HANS (acute kidney injury): Code(s): N17.9 - Acute kidney failure, unspecified Status: Acute Assessment and Plan: BUN/Cr 16/1.0. Stable. Strict I&Os Trend labs (4) DM2 (diabetes mellitus, type 2): Code(s): E11.9 - Type 2 diabetes mellitus without complications Status: Chronic Assessment and Plan: Glucose 125 Accu-Cheks AC and HS. Continue with her metformin (5) Depression with anxiety: Code(s): F41.8 - Other specified anxiety disorders Status: Chronic Assessment and Plan: Continue with home buspar, ativan,and paxil Seems to be controlled (6) Hypothyroidism: Code(s): E03.9 - Hypothyroidism, unspecified Status: Chronic Assessment and Plan: TSH 1.520 Continue with her levothyroxine. (7) Hyperlipidemia: Code(s): E78.5 - Hyperlipidemia, unspecified Status: Chronic Assessment and Plan: Continue with simvastatin (8) Restless leg: Code(s): G25.81 - Restless legs syndrome Status: Chronic Assessment and Plan: Continue with ropinirole (9) Narcolepsy: Code(s): G47.419 - Narcolepsy without cataplexy Status: Acute Assessment and Plan: Continue with her home medication. (10) History of CVA (cerebrovascular accident): Code(s): Z86.73 - Personal history of transient ischemic attack (TIA), and cerebral infarction without residual deficits Status: Chronic Assessment and Plan: Continue with home medication (11) Dementia: Code(s): F03.90 - Unspecified dementia without behavioral disturbance Status: Chronic Assessment and Plan: Continue with her home medication (12) Acute metabolic encephalopathy: Code(s): G93.41 - Metabolic encephalopathy Status: Acute Assessment and Plan: She seems to be at her baseline Patient is in a memory care unit continue with her home medications for dementia Could be related to the infectious process, dementia or depression or any combination thereof Head CT: No acute intercranial findings, age related findings. (13) Right knee pain: Code(s): M25.561 - Pain in right knee Status: Acute Assessment and Plan: Right knee pain today while working with PT/OT. Will obtain XR Apply topical bengay cream or PRN Tylneol Time Spent With Patient Time with patient: 25 - 35 minutes Subjective Date/time seen: 01/15/21 12:31 Interval history: Date of Service 01/15/21: Patient states she had some right knee pain today which is new. She states she fell prior to coming in she has not been having any knee pain. She reports some stiffness to her knee and pain located to posterior lateral lateral knee. Denies any fevers, chills, chest pain, shortness of breath, cough, nausea, vomiting, abdominal pain, le
[2021-01-15] MEDS: modafiniL (*CRX) 100 MG TABLET 50 MG PO (14:50)
[2021-01-15] MEDS: INSULIN ASPART (*BKC) 100 UNITS/ML SUB-Q (14:51)
[2021-01-15] MEDS: ENOXAPARIN 40 MG/0.4 ML SYRINGE SUB-Q (14:58)
[2021-01-15 17:11] LABS: Glucose Point of Care 104 mg/dl (65-105)
[2021-01-15] MEDS: rOPINIRole HCL 1 MG TABLET PO (21:25)
[2021-01-15] MEDS: SIMVASTATIN 10 MG TABLET PO (21:26)
[2021-01-15 21:57] LABS: Glucose Point of Care 130 mg/dl (65-105)
[2021-01-16] VITALS (11 sets, daily range): BP systolic 117–132; BP diastolic 52–60; PULSE 65–80; RESP 16–20; TEMP 36.3–36.8; O2SAT 95–97
[2021-01-16] MEDS: IPRATROPIUM BR 0.02% INH SOLN 0.5 MG/2.5 ML VIAL INHALATION ×3 (01:56→13:19)
[2021-01-16] MEDS: ALBUTEROL SULFATE NEB 2.5 MG/0.5 ML INH INHALATION ×3 (01:56→13:19)
[2021-01-16] MEDS: LEVOTHYROXINE SODIUM 25 MCG TABLET PO (05:58)
[2021-01-16 06:19] LABS: Anion Gap 9 mmol/L (8-16); Blood Urea Nitrogen 15 mg/dL (7-17); Calcium 9.1 mg/dL (8.4-10.2); Carbon Dioxide 30 mmol/L (22-30); Chloride 102 mmol/L (98-107); Estimated CRCL calculation 40 ml/min; Estimated Glomerular Filt Rate 49; Glucose 131 mg/dL (65-110); Potassium 3.1 mmol/L (3.4-5.0); Sodium 141 mmol/L (137-145)
[2021-01-16 08:04] LABS: Glucose Point of Care 128 mg/dl (65-105)
[2021-01-16 09:27] LABS: Magnesium 1.8 mg/dL (1.6-2.3)
[2021-01-16] MEDS: SERTRALINE HCL 50 MG TABLET PO (10:05)
[2021-01-16] MEDS: MECLIZINE HCL 25 MG TABLET PO ×2 (10:05→17:45)
[2021-01-16] MEDS: ASCORBIC ACID 500 MG TABLET PO (10:05)
[2021-01-16] MEDS: FAMOTIDINE 10 MG TABLET PO (10:05)
[2021-01-16] MEDS: DOCUSATE SODIUM 100 MG CAPSULE PO (10:05)
[2021-01-16] MEDS: metFORMIN HCL 500 MG TABLET PO ×2 (10:05→16:29)
[2021-01-16] MEDS: OXYBUTYNIN CHLORIDE 5 MG TABLET PO ×3 (10:06→16:29)
[2021-01-16] MEDS: busPIRone HCL 5 MG TABLET PO ×2 (10:06→20:32)
[2021-01-16] MEDS: busPIRone HCL 2.5 MG TABLET PO ×2 (10:06→20:32)
[2021-01-16] MEDS: modafiniL (*CRX) 100 MG TABLET 150 MG PO (10:06)
[2021-01-16] MEDS: ASPIRIN 81 MG CHEWABLE TABLET PO (10:06)
[2021-01-16] MEDS: MONTELUKAST SODIUM 10 MG TABLET PO (10:06)
[2021-01-16] MEDS: FLUTICASONE PROPIONATE 0.05% NA SPR 16 GM BTL (*BKC) 1 SPRAY NASAL (10:06)
[2021-01-16] MEDS: prednisoLONE ACETATE 1% OPHTH 5 ML 1 DROP EACH EYE ×2 (10:06→20:33)
[2021-01-16] MEDS: MENTHOL 10% / METHYL SALICYLATE 15% 57 GM TUBE 1 APPLIC TOPICAL (10:07)
[2021-01-16] MEDS: POTASSIUM CHLORIDE 20 MEQ TABLET 40 MEQ PO ×2 (10:09→15:35)
--- NOTE | 2021-01-16 10:20 | PM.IMPN ---
Progress Note: A&P Assessment and Plan (1) Acute metabolic encephalopathy: Code(s): G93.41 - Metabolic encephalopathy Status: Acute Assessment and Plan: Patient is a 75-year-old woman with a history of dementia, diabetes, history of CVA, hypothyroidism, who presented to the emergency room from her memory care facility with altered mental status. Initial vitals showed afebrile, non tachycardic, stable blood pressure 118/55, normal oxygenation 94% on room air. Initial labs showed leukocytosis at 21,800, and elevated neutrophils 84%, normal creatinine at 0.9, elevated BUN at 19. Elevated total bili at 1.7, AST elevated at 41, normal ALT and alk-phos. Negative troponin x1. Normal TSH. Normal Lipase. Urinalysis completely normal without signs of UTI. Chest x-ray showed pulmonary vascular redistribution, prominence of minor fissure, suggesting pulmonary venous hypertension and subpleural edema. Small pleural effusions are suggested. Infiltrates in the mid and primarily the lower lung zones may be due to pulmonary edema; differential diagnosis includes pneumonia, aspiration pneumonitis and/or chronic interstitial changes. Head CT showed No acute intracranial findings, age related findings. The patient was admitted into the hospital for pneumonia with further workup including modified barium swallow and speech therapy evaluation to make sure she is not aspirating. During her admission she had a modified barium swallow showing no signs of aspiration She had been started on broad-spectrum antibiotics for coverage of aspiration pneumonia with IV Zosyn and today is day 4 of antibiotics. At this time I do not feel she has aspiration pneumonia and she just may have a community-acquired pneumonia that we are treating. I will deescalate her antibiotics to oral Augmentin BID for 3 more days for 7 total days of treatment. Currently at this time, she seems to be at her baseline. Normal vitals, afebrile, normal oxygenation on room air. Continue monitoring (2) Right knee pain: Code(s): M25.561 - Pain in right knee Status: Acute Assessment and Plan: Discharge planning issues include Right knee pain/stiffness. She was having issues with working with therapy yesterday. XR knee showed Moderate right knee osteoarthritis. Small right knee joint effusion with loose bodies. She states at times she uses topical cream so Bengay was ordered and states it is better. She is about to work with PT/OT now and will see how she does. If she still has issues with getting around may consider Ortho consult for possible joint injection with steroids or their recommendations further. (3) Pneumonia: Qualifiers: Laterality: bilateral Lung location: lower lobe of lung Pneumonia type: due to unspecified organism Qualified Code(s): J18.9 - Pneumonia, unspecified organism Code(s): J18.9 - Pneumonia, unspecified organism Status: Acute Assessment and Plan: See above (4) Fluid overload: Code(s): E87.70 - Fluid overload, unspecified Status: Acute Assessment and Plan: Chest xray indicates possible pulmonary edema on arrival. She was given Lasix x 1 01/14/21 Lungs are clear at this time. Echo showing normal EF 60-70%, mild concentric LVH, diastolic grade 2 dysfunction Appears to be euvolemic at this time. (5) HANS (acute kidney injury): Code(s): N17.9 - Acute kidney failure, unspecified Status: Acute Assessment and Plan: BUN/Cr 15/1.1. Stable. Strict I&Os Trend labs (6) DM2 (diabetes mellitus, type 2): Code(s): E11.9 - Type 2 diabetes mellitus without complications Status: Chronic Assessment and Plan: Glucose 131 Accu-Cheks AC and HS. Continue with her metformin (7) Depression with anxiety: Code(s): F41.8 - Other specified anxiety disorders Status: Chronic Assessment and
[2021-01-16 11:48] LABS: Glucose Point of Care 240 mg/dl (65-105)
[2021-01-16] MEDS: INSULIN ASPART (*BKC) 100 UNITS/ML SUB-Q (12:43)
[2021-01-16] MEDS: modafiniL (*CRX) 100 MG TABLET 50 MG PO (12:43)
[2021-01-16] MEDS: MAGNESIUM OXIDE 400 MG TABLET PO (12:43)
[2021-01-16] MEDS: ENOXAPARIN 40 MG/0.4 ML SYRINGE SUB-Q (14:02)
--- NOTE | 2021-01-16 14:56 | PCOTNOTE ---
Attempted to see patient twice this pm, however patient was eating lunch both attempts. Pt stated, Well, I had to go to the bathroom.
[2021-01-16 16:33] LABS: Glucose Point of Care 176 mg/dl (65-105)
[2021-01-16 20:25] LABS: Glucose Point of Care 125 mg/dl (65-105)
[2021-01-16] MEDS: rOPINIRole HCL 1 MG TABLET PO (20:32)
[2021-01-16] MEDS: AMOXICILLIN/CLAVULANATE K 875-125 MG TAB 1 TABLET PO (20:32)
[2021-01-16] MEDS: SIMVASTATIN 10 MG TABLET PO (20:32)
[2021-01-17] MEDS: LEVOTHYROXINE SODIUM 25 MCG TABLET PO (05:57)
[2021-01-17 05:59] VITALS: BP 123/59; PULSE 63; RESP 18; TEMP 36.6; O2SAT 95
[2021-01-17 06:08] LABS: Anion Gap 8 mmol/L (8-16); Blood Urea Nitrogen 18 mg/dL (7-17); Calcium 9.5 mg/dL (8.4-10.2); Carbon Dioxide 27 mmol/L (22-30); Chloride 107 mmol/L (98-107); Estimated CRCL calculation 36 ml/min; Estimated Glomerular Filt Rate 44; Glucose 130 mg/dL (65-110); Magnesium 1.8 mg/dL (1.6-2.3); Sodium 142 mmol/L (137-145)
[2021-01-17 07:33] LABS: Glucose Point of Care 117 mg/dl (65-105)
[2021-01-17] MEDS: modafiniL (*CRX) 100 MG TABLET 150 MG PO (08:34)
[2021-01-17] MEDS: ASCORBIC ACID 500 MG TABLET PO (08:36)
[2021-01-17] MEDS: metFORMIN HCL 500 MG TABLET PO ×2 (08:36→16:32)
[2021-01-17] MEDS: ASPIRIN 81 MG CHEWABLE TABLET PO (08:36)
[2021-01-17] MEDS: OXYBUTYNIN CHLORIDE 5 MG TABLET PO ×3 (08:36→16:32)
[2021-01-17] MEDS: busPIRone HCL 5 MG TABLET PO (08:36)
[2021-01-17] MEDS: SERTRALINE HCL 50 MG TABLET PO (08:37)
[2021-01-17] MEDS: DOCUSATE SODIUM 100 MG CAPSULE PO (08:37)
[2021-01-17] MEDS: FAMOTIDINE 10 MG TABLET PO (08:37)
[2021-01-17] MEDS: MAGNESIUM OXIDE 400 MG TABLET PO (08:37)
[2021-01-17] MEDS: MONTELUKAST SODIUM 10 MG TABLET PO (08:37)
[2021-01-17] MEDS: prednisoLONE ACETATE 1% OPHTH 5 ML 1 DROP EACH EYE ×2 (08:38→16:33)
[2021-01-17] MEDS: FLUTICASONE PROPIONATE 0.05% NA SPR 16 GM BTL (*BKC) 1 SPRAY NASAL (08:38)
[2021-01-17] MEDS: busPIRone HCL 2.5 MG TABLET PO (08:38)
[2021-01-17] MEDS: AMOXICILLIN/CLAVULANATE K 500-125 MG TAB 1 TABLET PO ×2 (08:42→16:33)
--- NOTE | 2021-01-17 09:34 | PM.DS ---
DS: Admitting Diagnosis Discharge Date 01/17/21 Admitting Diagnosis AMS DS: Discharge Diagnosis Discharge Diagnosis (1) Acute metabolic encephalopathy: Code(s): G93.41 - Metabolic encephalopathy Status: Acute Assessment and Plan: Patient is a 75-year-old woman with a history of dementia, diabetes, history of CVA, hypothyroidism, who presented to the emergency room from her memory care facility with altered mental status. Initial vitals showed afebrile, non tachycardic, stable blood pressure 118/55, normal oxygenation 94% on room air. Initial labs showed leukocytosis at 21,800, and elevated neutrophils 84%, normal creatinine at 0.9, elevated BUN at 19. Elevated total bili at 1.7, AST elevated at 41, normal ALT and alk-phos. Negative troponin x1. Normal TSH. Normal Lipase. Urinalysis completely normal without signs of UTI. Chest x-ray showed pulmonary vascular redistribution, prominence of minor fissure, suggesting pulmonary venous hypertension and subpleural edema. Small pleural effusions are suggested. Infiltrates in the mid and primarily the lower lung zones may be due to pulmonary edema; differential diagnosis includes pneumonia, aspiration pneumonitis and/or chronic interstitial changes. Head CT showed No acute intracranial findings, age related findings. The patient was admitted into the hospital for pneumonia with further workup including modified barium swallow and speech therapy evaluation to make sure she is not aspirating. During her admission she had a modified barium swallow showing no signs of aspiration She had been started on broad-spectrum antibiotics for coverage of aspiration pneumonia with IV Zosyn and today is day 4 of antibiotics. At this time I do not feel she has aspiration pneumonia and she just may have a community-acquired pneumonia that we are treating. I will deescalate her antibiotics to oral Augmentin BID for 3 more days for 7 total days of treatment. Currently at this time, she seems to be at her baseline. Normal vitals, afebrile, normal oxygenation on room air. Discharge planning issues include Right knee pain/stiffness. She was having issues with working with therapy yesterday. XR knee showed Moderate right knee osteoarthritis. Small right knee joint effusion with loose bodies. She states at times she uses topical cream so Bengay was ordered and states it is better. She is about to worked with PT/OT and did well today. States her pain is getting better. She now tells me she has had multiple joint injections in the past for arthritis of her right knee. Told her if she keeps having issues she needs to follow up with Orthosurgery (2) Right knee pain: Code(s): M25.561 - Pain in right knee Status: Acute (3) Pneumonia: Qualifiers: Laterality: bilateral Lung location: lower lobe of lung Pneumonia type: due to unspecified organism Qualified Code(s): J18.9 - Pneumonia, unspecified organism Code(s): J18.9 - Pneumonia, unspecified organism Status: Acute Assessment and Plan: See above (4) Fluid overload: Code(s): E87.70 - Fluid overload, unspecified Status: Acute Assessment and Plan: Chest xray indicates possible pulmonary edema on arrival. She was given Lasix x 1 01/14/21 Lungs are clear at this time. Echo showing normal EF 60-70%, mild concentric LVH, diastolic grade 2 dysfunction Appears to be euvolemic at this time. (5) HANS (acute kidney injury): Code(s): N17.9 - Acute kidney failure, unspecified Status: Acute Assessment and Plan: BUN/Cr 18/1.2. Stable. (6) DM2 (diabetes mellitus, type 2): Code(s): E11.9 - Type 2 diabetes mellitus without complications Status: Chronic Assessment and Plan: Glucose 131 Accu-Cheks AC and HS. Continue with her metformin (7) Depression with anxiety: Code(s): F41.8 - Other specified anxiety
[2021-01-17 11:38] LABS: Glucose Point of Care 149 mg/dl (65-105)
[2021-01-17] MEDS: modafiniL (*CRX) 100 MG TABLET 50 MG PO (12:40)
[2021-01-17] MEDS: ENOXAPARIN 40 MG/0.4 ML SYRINGE SUB-Q (12:42)
[2021-01-17 15:12] VITALS: BP 124/88; PULSE 71; RESP 16; TEMP 36.1; O2SAT 97
[2021-01-17 16:23] LABS: Glucose Point of Care 108 mg/dl (65-105)
[2021-01-17] MEDS: rOPINIRole HCL 1 MG TABLET PO (16:33)
[2021-01-17] MEDS: SIMVASTATIN 10 MG TABLET PO (16:33)
== END 2021-01-17 17:13 | DRG 193 ==
LOC: ANHED 16:37 → ANH3MED 17:28
PROVIDERS: General Practice; Nurse Practitioner; Physician Assistant; Admitting Provider Internal Medicine; Emergency Provider Emergency Medicine; PCP Nurse Practitioner Family; Visit Provider Internal Medicine
DX: J18.9 Pneumonia, unspecified organism (principal); G93.41 Metabolic encephalopathy; N17.9 Acute kidney failure, unspecified; F03.90 Unspecified dementia, unspecified severity, without behavioral disturbance, psychotic disturbance, mood disturbance, and anxiety; E11.9 Type 2 diabetes mellitus without complications; E03.9 Hypothyroidism, unspecified; E87.70 Fluid overload, unspecified; G47.419 Narcolepsy without cataplexy; F41.8 Other specified anxiety disorders; G25.81 Restless legs syndrome; E78.5 Hyperlipidemia, unspecified; M17.11 Unilateral primary osteoarthritis, right knee; M25.561 Pain in right knee; Z86.73 Personal history of transient ischemic attack (TIA), and cerebral infarction without residual deficits
CPT/HCPCS: 36415; 51701; 70450; 71045; 71260; 73562; 74160; 80048; 80053; 81003; 82948; 83605; 83615; 83690; 83735; 83880; 84443; 84484; 85025; 85055; 87040; 92611; 93005; 93306; 94640; 96365; 96366; 96367; 97110; 97116; 97161; 97165; 97530; 97535; 99285; A9270; G0378; J0456; J0696; J1650; J1815; J1940; J2543; J3475; J7120; Q9967

== ENCOUNTER 2021-12-04 14:56 | Inpatient (IN) | payer MEDICARE, OTHER, SELFPAY ==
[2021-12-04] VITALS (28 sets, daily range): BP systolic 73–123; BP diastolic 31–62; PULSE 61–76; RESP 14–24; TEMP 36.6–37.1; O2SAT 94–100; BMI 32.1
--- NOTE | ~2021-12-04 | XR_ITS ---
EXAMINATION: XR chest 1V portable DATE: 12/07/2021 08:33 INDICATION: Hypoxia. TECHNIQUE: A single frontal view of the chest was obtained. COMPARISON: Chest single view 12/04/2021, chest CT 12/04/2021 FINDINGS: There is mild elevation of right hemidiaphragm. There are airspace and interstitial opaciti es in the mid and lower lung zones. No pleural effusion or pneumothorax. The heart size is normal IMPRESSION: 1. Worsened airspace and interstitial opacities in the mid and lower lung zones, consistent with atel ectasis versus pneumonia. 2. New mild elevation of right hemidiaphragm. This finding may be secondary to phrenic nerve palsy gi nivia the right neck hematoma. Reviewed, dictated and finalized at location A. IMPRESSION: 1. Worsened airspace and interstitial opacities in the mid and lower lung zones , consistent with atelectasis versus pneumonia. 2. New mild elevation of right hemidiaphragm. This finding may be secondary to phrenic nerve palsy given the right neck hematoma.
--- NOTE | ~2021-12-04 | CT_ITS ---
EXAMINATION: CT soft tissue neck wo con DATE: 12/07/2021 12:42 INDICATION: Neck hematoma. TECHNIQUE: Computed tomography (CT) of the neck was performed without intravenous contrast. Automated exposure control and iterative reconstruction technique were employed. The dose-length product was 5 33.14 mGy-cm. COMPARISON: CTA neck 12/04/2021 FINDINGS: There are small pleural effusions, right worse than left. There is mild atelectasis bilater ally. There is a small volume of hematoma in right neck along the carotid artery. There is fat strand ing in the mediastinum on the right, consistent with small volume of hematoma. There is mucosal thick ening in the paranasal sinuses. The mastoid air cells are normal. There is severe cervical spondylosi s. IMPRESSION: 1. Small volume of hematoma in the right neck and superior mediastinum with improvement from 2. 2. Small pleural effusions. Reviewed, dictated and finalized at location A. IMPRESSION: 1. Small volume of hematoma in the right neck and superior mediastinum with imp rovement from 12/04/2021. 2. Small pleural effusions.
--- NOTE | ~2021-12-04 | CT_ITS ---
EXAMINATION: CTA chest PE protocol DATE: 12/04/2021 20:57 INDICATION: cough, dyspnea TECHNIQUE: Computed tomography angiography (CTA) of the chest was performed with 100 mL Omnipaque-350 intravenous contrast timed to evaluate the pulmonary arteries. Coronal maximum intensity projection 3D-reconstructions were created by the technologist. The dose-length product (DLP) was 396.28 mGy-cm. Automated exposure control and iterative reconstruction technique were employed. COMPARISON: CT chest abdomen 01/13/2021. FINDINGS: Lung parenchyma and airways: Senescent changes. Bibasilar scarring and dependent atelectasis.. Pleura: Unremarkable. Thoracic inlet, axillae and chest wall: Postsurgical change in the left outer breast. Subcutaneous ga s in the right lower neck. Deep right paratracheal and lower neck hematoma adjacent to the right thyr oid gland, surrounding the proximal right common carotid artery and extending into the retropharyngea l space and surrounding proximal esophagus. The superior extent of the hematoma is not included in th e [id number]. No arterial extravasation. Thoracic aorta: Mild arch calcification. Mediastinum: Normal. Heart and pericardium: Mitral annulus calcification. Coronary artery calcifications: Absent. Upper abdomen: No significant finding. Bones: No acute osseous finding. Pulmonary arteries: Study quality: Adequate. No pulmonary emboli detected. IMPRESSION: No CT evidence of acute pulmonary embolus. Deep right paratracheal and inferior neck hematoma, likely related to central line placement attempt. The hematoma extends into the retropharyngeal space. Supe rior portion of the hematoma was not included in the [id number]. No active extravasation detected. Please refer to the report on the forthcoming CTA neck for additional detail. Reviewed, dictated and finalized at location K. IMPRESSION: No CT evidence of acute pulmonary embolus. Deep right paratracheal and inferior neck hematoma, likely related to central line placement attempt. The hematoma extends into the retropharyngeal space. Superior portion of the hematoma was no t included in the [id number]. No active extravasation detected. Please refer to the report on the forthcoming CTA neck for additional detail.
--- NOTE | ~2021-12-04 | CT_ITS ---
EXAMINATION: CT brain wo con DATE: 12/04/2021 16:42 INDICATION: AMS . TECHNIQUE: Computed tomography (CT) of the head was performed without intravenous contrast. The mA wa s adjusted according to patient size. Iterative reconstruction technique was employed. The dose-lengt h product was 1135.00 mGy-cm. COMPARISON: 01/12/2021 FINDINGS: No acute intracranial hemorrhage or extra-axial fluid collection. No hydrocephalus, mass, or herniation. No acute ischemic infarct. Unremarkable dural venous sinus attenuation. No acute osseous abnormality. Bilateral maxillary and ethmoid air cell mucosal thickening, remaining aerated spaces are clear. Mild atrophy and chronic white matter change. Bilateral old lacunar infarcts. Atherosclerotic intracr anial calcification. Bilateral lens replacements. IMPRESSION: No acute intracranial process. Reviewed, dictated and finalized at location K.
--- NOTE | ~2021-12-04 | CT_ITS ---
EXAMINATION: CTA neck DATE: 12/04/2021 21:48 INDICATION: TECHNIQUE: Computed tomography angiography of the neck was performed with 100 mL Omnipaque-350 intrav enous contrast with arterial and venous phase imaging. Automated exposure control and iterative recon struction technique were employed. The dose-length product was 1267.18 mGy-cm. COMPARISON: CTPA, same date at 8:46 PM FINDINGS: Large hematoma in the right lower neck involving the jugular and right paratracheal space, extending into the retropharyngeal space. No active arterial extravasation. No venous hemorrhage detected. No s ignificant size change between arterial or venous phase imaging or between this scan and the CTPA per formed earlier, given interval differences in positioning. The thyroid gland is unremarkable. The submandibular and parotid glands are symmetric. There is no cervical lymphadenopathy. The posterior aspect of the lower cervical and thoracic trachea is compressed slightly by the hematoma. Minimal b ilateral carotid bifurcation calcification without significant stenosis. Patient has had ocular lens surgery. . Bilateral mucosal and ethmoid air cell mucosal thickening. No pneumothorax. No acute oss eous finding. IMPRESSION: Deep right lower neck hematoma extending into the retropharyngeal space, without evidence of active a rterial subluxation. No venous leak detected. No change in the hematoma size since prior imaging. Reviewed, dictated and finalized at location K. IMPRESSION: Deep right lower neck hematoma extending into the retropharyngeal space, withou t evidence of active arterial subluxation. No venous leak detected. No change i n the hematoma size since prior imaging.
--- NOTE | ~2021-12-04 | XR_ITS ---
EXAMINATION: XR chest 1V portable INDICATION: Altered mental status TECHNIQUE: Portable AP chest at 1516 hours COMPARISON: 01/12/2021 FINDINGS: The lungs are free of acute opacities. No pleural effusion or pneumothorax. The cardiomedia stinal silhouette is normal. IMPRESSION: 1. No acute cardiopulmonary abnormality. Reviewed, dictated and finalized at location B.
--- NOTE | 2021-12-04 15:02 | ECG_ITS ---
Measurements Intervals [place] Rate: 62 P: 9 SC: 153 QRS: -34 QRSD: 122 T: 82 QT: 409 QTc: 416 Interpretive Statements SINUS RHYTHM WITH SINUS ARRHYTHMIA LEFT AXIS DEVIATION INTRAVENTRICULAR CONDUCTION DELAY DELAYED PRECORDIAL R/S TRANSITION LEFT VENTRICULAR HYPERTROPHY AND ST-T CHANGE MINIMAL Q WAVES- HIGH LATERAL LEADS BORDERLINE ECG COMPARED TO ECG 01/12/2021 13:31:26 SINUS ARRHYTHMIA NOW PRESENT Electronically Signed On 12-04-2021 21:31:14 CDT by Paul Frederick D.O.
--- NOTE | 2021-12-04 15:02 | ED.AMS ---
HPI - Altered Mental Status General Chief Complaint: Altered Mental Status Stated Complaint: AMS Time Seen by Provider: 12/04/21 15:02 Source: patient Mode of arrival: ambulatory Limitations: no limitations History of Present Illness HPI narrative: The patient is a 75-year-old woman with a history of dementia,Type II DM, CVA, hypothyroidism, with history of pneumonia, who presented to the emergency room from her memory care facility with altered mental status. Patient was found at her facility this morning around 6:30 in the AM noted to be more lethargic than normal per nursing staff. Patient typically is alert and oriented to person, place, and to time. Patient was noted to have a cough, significant congestion. She is noted to be mildly hypoxic and placed on 2 L via nasal cannula for transport. At the time of my assessment, patient is somnolent but arousable. She is protecting her airway. She awakens easily to verbal stimuli. She is oriented to person, not to place or time. She does follow simple commands. No focal deficits noted. Related Data Home Medications Medication Instructions Recorded Confirmed Calcium 600 + D(3) 2 tablet PO DAILY 12/13/20 01/12/21 ascorbic acid (vitamin C) 500 mg 500 mg PO DAILY 12/13/20 01/12/21 tablet (Vitamin C) aspirin 81 mg tablet 81 mg PO DAILY 12/13/20 01/12/21 buspirone 7.5 mg tablet 7.5 mg PO BID 12/13/20 01/12/21 docusate sodium 100 mg tablet 100 mg PO DAILY 12/13/20 01/12/21 famotidine 20 mg tablet 10 mg PO DAILY 12/13/20 01/12/21 fluticasone propionate 50 50 mcg intranasal DAILY 12/13/20 01/12/21 mcg/actuation nasal spray,suspension levothyroxine 25 mcg tablet 25 mcg PO DAILY 12/13/20 01/12/21 modafinil 100 mg tablet 50 mg PO QNOON 12/13/20 01/12/21 modafinil 100 mg tablet 150 mg PO QAM 12/13/20 01/12/21 montelukast 10 mg tablet 10 mg PO DAILY 12/13/20 01/12/21 ropinirole 1 mg tablet 1 mg PO HS 12/13/20 01/12/21 sertraline 50 mg tablet 50 mg PO DAILY 12/13/20 01/12/21 simvastatin 10 mg tablet 10 mg PO HS 12/13/20 01/12/21 acetaminophen 650 mg tablet 650 mg PO Q6H PRN Fever Or Pain 01/12/21 01/12/21 albuterol 90 mcg/actuation aerosol 90 mcg inhalation Q4-5H PRN 01/12/21 01/12/21 inhaler Shortness Of Breath Or Wheezing loperamide 2 mg capsule 2 mg PO Q4H PRN Diarrhea 01/12/21 01/12/21 (Anti-Diarrheal (loperamide)) lorazepam 1 mg tablet 1 mg PO BID PRN Agitation 01/12/21 01/12/21 meclizine 25 mg tablet 25 mg PO TID PRN Dizziness 01/12/21 01/12/21 metformin 500 mg tablet 500 mg PO BID 01/12/21 01/12/21 oxybutynin chloride 5 mg tablet 5 mg PO TID 01/12/21 01/12/21 prednisolone acetate 1 % eye 1 drp EACH EYE Q12H 01/12/21 01/12/21 drops,suspension Allergies Allergy/AdvReac Type Severity Reaction Status Date / Time No Known Allergies Allergy Verified 12/04/21 21:20 Review of Systems Review of Systems: ROS unobtainable: Yes unobtainable due to mental status PMFSH Past Medical History Medical History (Updated 12/04/21 @ 22:17 by Tonya Peña MD) Dementia Depression with anxiety Diverticulitis DM2 (diabetes mellitus, type 2) History of CVA (cerebrovascular accident) Hyperlipidemia Hypothyroidism Narcolepsy Restless leg Suspected COVID-19 virus infection Surgical History Surgical History H/O lumpectomy H/O: hysterectomy History of total knee arthroplasty Hx of cholecystectomy S/P colectomy Family History Family History Father Bone cancer Mother Cerebrovascular accident Other Unknown family medical history Social History Social History (Updated 12/04/21 @ 21:08 by Sydnie Otto NP) Social History: She is . she is listed as a full code.She has two children. However her daughter Eloy Amanda has recently from cancer. Now her son is the durable power powerhouse helper for healthcare. Nonsmoker. no alcohol. she retired f
[2021-12-04 15:31] LABS: Base Excess ABG 2.7 mEq/l (+/-2.0); Device ROOM AIR; Fractional Inspired Oxygen 21 %; HCO3 ABG 26.9 mEq/l (22.0-26.0); Modified Allen's Test Pass; Oxygen Content ABG 16.5 %vol (16.0-22.0); Oxygen Saturation ABG 88.9 % (95.0-100.0); Oxyhemoglobin 88.1 % THb (90.0-100.0); PCO2 ABG 39.9 mmHg (35.0-45.0); PO2 FiO2 Ratio Arterial Blood 2.52 %; Site Drawn RIGHT RADIAL; Total Hemoglobin 13.3 g/dL (12.0-18.0); pH ABG 7.446 (7.350-7.450)
[2021-12-04 16:12] LABS: SARS-CoV-2 RNA PCR Negative
[2021-12-04 17:52] LABS: Basophils Percent Auto 0.4 % (0.2-1.2); Eosinophils Absolute Auto 0.1 K/mm3 (0-0.3); Eosinophils Percent Auto 1.2 % (0-4.4); Hematocrit 36.9 % (37.0-47.0); Hemoglobin 12.5 g/dL (12.0-15.0); Immature Granulocyte Absolute 0.04 K/mm3 (0.00-0.031); Immature Granulocyte Percent A 0.4 % (0-0.5); Immature Platelet Fraction Pct 5.2 % (0.9-11.2); Lymphocytes Absolute Auto 2.03 K/mm3 (0.9-3.2); Lymphocytes Percent Auto 19.4 % (18.3-44.2); Mean Corpuscular HGB Conc 33.9 g/dl (32-36); Mean Corpuscular Hemoglobin 31.3 pg (26-34); Mean Corpuscular Volume 92.5 fl (80-100); Mean Platelet Volume 11.1 fl (7.4-10.4); Monocytes Absolute Auto 1.2 K/mm3 (0.1-0.6); Monocytes Percent Auto 11.5 % (2.6-8.5); Neutrophils Percent Auto 67.1 % (45.5-73.1); Platelet Count Result 155 k/mm3 (150-375); Red Blood Count 3.99 M/mm3 (4.2-5.4); Red Cell Distribution Width 13.3 % (11.5-14.5); White Blood Count 10.5 K/mm3 (4.5-10.0)
[2021-12-04 18:07] LABS: Lactic Acid Reflex 1.1 mmol/L (0.7-2.0)
[2021-12-04 18:10] LABS: Alanine Aminotransferase 20 U/L (6-35); Albumin Level 3.8 g/dL (3.5-5.1); Alkaline Phosphatase 104 U/L (38-126); Anion Gap 9 mmol/L (8-16); Aspartate Amino Transferase 31 U/L (14-36); Bilirubin,Total 1.1 mg/dL (0.2-1.3); Blood Urea Nitrogen 20 mg/dL (7-17); Carbon Dioxide 28 mmol/L (22-30); Chloride 104 mmol/L (98-107); Estimated Glomerular Filt Rate 54; Glucose 118 mg/dL (65-110); Potassium 3.4 mmol/L (3.4-5.0); Sodium 141 mmol/L (137-145)
[2021-12-04 18:21] LABS: Troponin I 0.022 ng/mL (0.000-0.034)
--- NOTE | 2021-12-04 19:07 | PM.IMHP ---
H&P: HPI History of Present Illness Date/Time: 12/04/21 19:07 Chief Complaint: Altered mental status Narrative: This is a 76-year-old female patient who has a history of dementia, type 2 diabetes, CVA, hypotension and history of pneumonia. The patient came to the emergency room from [facility] with altered mental status. The patient was found at the facility this morning around 630 this a.m. she is more lethargic than normal as per residential staff. The patient has been having a significant cough and chest congestion. Patient was mildly hypoxic and was placed on 2 L per nasal cannula for transport. The patient was very somnolent but will of his of arousable. The patient is answering yes and no questions for me. Multiple teams were tried for central line as the patient has poor IV access. After multiple attempts a central line was placed in the emergency room. Patient's blood pressures have been soft around 113/62. Her heart rate has been 60s to 70s. White count is 10.5. COVID was negative. Head CT shows no acute intracranial process. A chest CTA has been ordered awaiting results. Chest x-ray was no acute cardiopulmonary abnormality. The patient has been coughing frequently. She was given azithromycin and Rocephin for the possibility of pneumonia. She was also given IV fluids. Is being admitted to observation status on the date of service of 12/04/2021. Review of Systems Review of Systems: See HPI All systems reviewed & are unremarkable except as noted in HPI and below Constitutional: Constitutional: Reports as per HPI and Reports no additional constitutional complaints Eyes: Eyes: Reports as per HPI and Reports no additional eye complaints ENT: Reports system reviewed and no additional complaints, except as documented and Reports Normal hearing present Cardiovascular: Cardiovascular: Reports no additional cardiovascular complaints Respiratory: Respiratory: Reports no additional respiratory complaints and Reports no additional respiratory complaints Gastrointestinal: Gastrointestinal: Reports as per HPI and Reports no additional gastrointestinal complaints Musculoskeletal: Musculoskeletal: Reports no additional musculoskeletal complaints Integumentary/Breasts: Skin/Breast: Reports system reviewed and no additional complaints, except as docu and Reports as per HPI Neurologic: Reports system reviewed and no additional complaints, except as documented, Reports as per HPI and Reports Normal hearing present Psychiatric: Psychiatric: Reports no additional psychiatric complaints and Reports as per HPI Endocrine: Endocrine: Reports no additional endocrine complaints Hematologic/Lymphatic: Hematologic/Lymphatic: Reports no additional hematologic/lymphatic complaints Allergic/Immunologic: Allergic/Immunologic: Reports no additional allergic/immunologic complaints PMFSH Past Medical History Medical History (Updated 12/04/21 @ 21:13 by Sydnie Otto NP) Dementia Depression with anxiety Diverticulitis DM2 (diabetes mellitus, type 2) History of CVA (cerebrovascular accident) Hyperlipidemia Hypothyroidism Narcolepsy Restless leg Suspected COVID-19 virus infection Surgical History Surgical History H/O lumpectomy H/O: hysterectomy History of total knee arthroplasty Hx of cholecystectomy S/P colectomy Family History Family History Father Bone cancer Mother Cerebrovascular accident Other Unknown family medical history Social History Social History (Updated 12/04/21 @ 21:08 by Sydnie Otto NP) Social History: She is . she is listed as a full code.She has two children. However her daughter Eloy Amanda has recently from cancer. Now her son is the durable power assistant county attorney for healthcare. Nonsmoker. no alcohol. she retired from [employer] Code status full
[2021-12-04] MEDS: SODIUM CHLORIDE 0.9% IV 1,000 ML 999 ML IV CONT (21:11)
[2021-12-04] MEDS: ONDANSETRON INJ 4 MG/2 ML VIAL IV PUSH (21:12)
[2021-12-04 21:21] LABS: Appearance Urine Slightly Cloudy (Clear); Bilirubin Urine Negative (Negative); Blood Urine 2+ (Negative); Color Urine Yellow (Yellow); Glucose Urine UA Negative (Negative); Ketones Urine Trace mg/dL (Negative); Leukocyte Esterase Ur 3+ LEU/UL (Negative); Nitrate Urine Positive (Negative); Protein Urine 2+ mg/dL (Negative)
--- NOTE | 2021-12-04 21:21 | WPDPROCEDUR ---
Procedures Central Line Placement Right Femoral: Central Line Date: 12/04/21 Central Line Time: 20:00 Consent: I have discussed with the patient and/or surrogate, the non-emergent placement of a central venous catheter, including its clinical necessity/indication and associated potential risks and complications. The patient and/or surrogate understand(s) and acknowledge(s) the need to proceed with central venous catheter insertion as an important element of the patient's clinical management. Time Out Performed: Yes Patient Position: supine Patient placed on monitor/pulse ox: Yes Provider Prep: Max. sterile barrier precautions Central line prep: 2% Chlorhexidine scrub Local anesthesia used: lidocaine 1% Amount of anesthesia used (ml): 5 Sterile US Technique with sterile gel/sterile probe covers: Yes Central line lumen inserted: triple Irish: 7 Length (cm): 20 Depth of Insertion (cm): 20 Post Procedure: sutured in place, good blood return, all ports aspirated, flushed, capped, transparent dressing and hemostatic product Post procedure x-ray: other (None required) Patient tolerated procedure: well Additional comments: Attempted x1 on the left side without success. The patient had moved her legs or jumped several times causing the needle to come out of the skin.
[2021-12-04 21:37] LABS: Bacteria Urine Trace /hpf; Mucus Urine Rare /lpf; RBC Urine >75 /hpf (0-2); WBC Urine >75 /hpf
[2021-12-04 21:38] LABS: Add Urine Microscopic? YES
[2021-12-04 22:10] LABS: Basophils Percent Auto 0.3 % (0.2-1.2); Eosinophils Absolute Auto 0.2 K/mm3 (0-0.3); Eosinophils Percent Auto 1.7 % (0-4.4); Hematocrit 32.1 % (37.0-47.0); Hemoglobin 10.9 g/dL (12.0-15.0); Immature Granulocyte Absolute 0.04 K/mm3 (0.00-0.031); Immature Granulocyte Percent A 0.4 % (0-0.5); Immature Platelet Fraction Pct 4.8 % (0.9-11.2); Lymphocytes Absolute Auto 1.64 K/mm3 (0.9-3.2); Lymphocytes Percent Auto 17.1 % (18.3-44.2); Mean Corpuscular Hemoglobin 31.8 pg (26-34); Mean Corpuscular Volume 93.6 fl (80-100); Mean Platelet Volume 11.3 fl (7.4-10.4); Monocytes Absolute Auto 1.2 K/mm3 (0.1-0.6); Monocytes Percent Auto 12.2 % (2.6-8.5); Neutrophils Absolute Auto 6.6 K/mm3 (1.3-6.7); Neutrophils Percent Auto 68.3 % (45.5-73.1); Platelet Count Result 139 k/mm3 (150-375); Red Blood Count 3.43 M/mm3 (4.2-5.4); Red Cell Distribution Width 13.4 % (11.5-14.5); White Blood Count 9.6 K/mm3 (4.5-10.0)
[2021-12-04 22:22] LABS: INR 1.3; Prothrombin Time 15.6 Seconds (11.1-14.7)
[2021-12-04 22:23] LABS: Ammonia < 9 umol/L (9-30); Partial Thromboplastin Time 32.1 SECONDS (22.3-36.8)
--- NOTE | 2021-12-04 23:05 | ADMGEN ---
This patient, Aleta Howard, was admitted to IMU Room 214-01 @2221. Patient/family oriented to hospital policies and general routines including ID bracelet, bed and alarms, visiting hours, pain management, procedures, bathroom and other care routines, personal items, smoking policy, room service/diet, and visiting hours. Information on how to activate the Rapid Response Team has been discussed. Patient/Family are encouraged to report perceived risks to care and to ask questions if they do not understand what they are told or what they should do.
[2021-12-05] VITALS (12 sets, daily range): BP systolic 98–134; BP diastolic 46–63; PULSE 57–79; RESP 20–24; TEMP 36.4–37.3; O2SAT 97–100
[2021-12-05] MEDS: LACTATED RINGERS 1,000 ML 125 ML IV CONT ×2 (00:12→12:16)
[2021-12-05 04:33] LABS: Influenza Control Positive
[2021-12-05 04:57] LABS: Basophils Percent Auto 0.4 % (0.2-1.2); Eosinophils Absolute Auto 0.2 K/mm3 (0-0.3); Hemoglobin 10.7 g/dL (12.0-15.0); Immature Granulocyte Absolute 0.04 K/mm3 (0.00-0.031); Immature Granulocyte Percent A 0.4 % (0-0.5); Immature Platelet Fraction Pct 5.4 % (0.9-11.2); Lymphocytes Absolute Auto 1.76 K/mm3 (0.9-3.2); Lymphocytes Percent Auto 19.5 % (18.3-44.2); Mean Corpuscular HGB Conc 33.4 g/dl (32-36); Mean Corpuscular Hemoglobin 31.5 pg (26-34); Mean Corpuscular Volume 94.1 fl (80-100); Monocytes Absolute Auto 1.1 K/mm3 (0.1-0.6); Monocytes Percent Auto 12.2 % (2.6-8.5); Neutrophils Absolute Auto 5.9 K/mm3 (1.3-6.7); Neutrophils Percent Auto 65.5 % (45.5-73.1); Platelet Count Result 132 k/mm3 (150-375); Red Cell Distribution Width 13.5 % (11.5-14.5)
[2021-12-05 05:06] LABS: Lactic Acid Reflex 0.9 mmol/L (0.7-2.0)
[2021-12-05 05:14] LABS: CRP 5.1 mg/dL (<1.0); Hemoglobin A1C 5.7 % (<5.7); Lipase 32 U/L (23-300); Magnesium 1.5 mg/dL (1.6-2.3); Phosphorus 3.3 mg/dL (2.5-4.5)
[2021-12-05] MEDS: LEVOTHYROXINE SODIUM 25 MCG TABLET PO ×2 (05:25)
[2021-12-05 09:42] LABS: Glucose Point of Care 130 mg/dl (65-105)
[2021-12-05] MEDS: OXYBUTYNIN CHLORIDE 5 MG TABLET 15 MG PO (11:01)
[2021-12-05] MEDS: DOCUSATE SODIUM 100 MG CAPSULE PO (11:01)
[2021-12-05] MEDS: ASPIRIN 81 MG ENTERIC TABLET PO (11:01)
[2021-12-05] MEDS: ASCORBIC ACID 500 MG TABLET PO (11:01)
[2021-12-05] MEDS: MONTELUKAST SODIUM 10 MG TABLET PO (11:01)
[2021-12-05] MEDS: FAMOTIDINE 10 MG TABLET PO (11:02)
[2021-12-05] MEDS: FLUTICASONE PROPIONATE 0.05% NA SPR 16 GM BTL (*BKC) 2 SPRAY NASAL (11:02)
[2021-12-05] MEDS: SERTRALINE HCL 50 MG TABLET PO (11:02)
[2021-12-05 11:52] LABS: Glucose Point of Care 132 mg/dl (65-105)
[2021-12-05] MEDS: modafiniL (*CRX) 100 MG TABLET PO (12:17)
--- NOTE | 2021-12-05 16:37 | PM.IMPN ---
Progress Note: A&P Assessment and Plan (1) Altered mental status: Code(s): R41.82 - Altered mental status, unspecified Status: Acute Assessment and Plan: UA consistent with UTI. CXR clear and CTA showing no PE or evidence of PNA. COVID and influenza are negative. The patient was hypoxic requiring oxygen for unclear reasons. Aspiration with bronchospasm? Occult PNA seems less likely. Wean O2 as toelrated. Mental status seems to be back to baseline. Suspect symptoms related to UTI. (2) Acute UTI: Code(s): N39.0 - Urinary tract infection, site not specified Status: Acute Assessment and Plan: UA noted. UCx and BCx pending. Clincally improved. Continue Rocephin. (3) Hypotension: Code(s): I95.9 - Hypotension, unspecified Status: Acute Assessment and Plan: BP 73/31 on admission. Suspect related to UTI and sepsis (although does not meet the criteria for sepsis). This was occurring prior to central line placement and was the reason for the central line to be placed. BP better and more stable with IV fluids. Cx are pending. Back down on IV fluid rate. (4) Hematoma of neck: Code(s): S10.93XA - Contusion of unspecified part of neck, initial encounter Status: Acute Assessment and Plan: Neck CTA showing deep right lower neck hematoma extending into the retropharyngeal space. Hgb was 12.5 but dropped to 10.9. Hgb unchanged this morning. Will monitor HH. No clinical evidence of airway compromise. (5) DM2 (diabetes mellitus, type 2): Code(s): E11.9 - Type 2 diabetes mellitus without complications Status: Chronic Assessment and Plan: A1c 5.7. The patient's blood glucose was reviewed on 12/05 Glucose remains well controlled. Stop AccuCheks. Hypoglycemia protocol available as needed. Diet controlled. (6) Dementia: Code(s): F03.90 - Unspecified dementia without behavioral disturbance Status: Chronic Assessment and Plan: The patient has known dementia and stay at a memory care unit. She has mild agitation and has lorazepam available as needed. (7) Hypothyroidism: Code(s): E03.9 - Hypothyroidism, unspecified Status: Chronic Assessment and Plan: TSH normal. Continue with levothyroxine. (8) Depression with anxiety: Code(s): F41.8 - Other specified anxiety disorders Status: Chronic Assessment and Plan: Mood stable. Continue with sertraline. Lorazepam available as needed Subjective Date/time seen: 12/05/21 16:37 Interval history: 76yo female with dementia, DM and hx of CVA here for altered mental status. Patient is alert but confused and unable to provide history. Review of Systems Review of Systems: ROS unobtainable: Yes unobtainable due to mental status Exam Narrative: AF 98.5 134/62 57 20 99% 2L Gen - NARD lying semi-recumbent in bed Neck - brusing noted right anterior and posterior-lateral at base of the neck. no defined palpable mass Chest - lungs clear to quiet respirations. nml RR CV - RRR S1/S2. Tele showing occasional sinus arrhythmias Abd - Soft, NT/ND, Positive BS Ext - No pedal edema. 2+ DP bilaterally. Right femoral line in place. Neuro - Alert but confused. Guest House Manager and plantar flexion strength 5/5 Psych - Nml mood and affect Skin - Warm and dry Objective Data Vital Signs Vital Signs: Vital Signs - 24 hr 12/04/21 17:05 12/04/21 17:17 12/04/21 17:31 Temperature Pulse Rate 62 61 62 Respiratory Rate 24 H 19 23 H Blood Pressure Pulse Oximetry 98 99 99 Oxygen Delivery Oxygen Flow Rate 12/04/21 17:33 12/04/21 18:00 12/04/21 18:34 Temperature Pulse Rate 63 61 65 Respiratory Rate 22 H 22 H 14 Blood Pressure 73/31 L 96/56 L Pulse Oximetry 98 100 100 Oxygen Delivery Oxygen Flow Rate 12/04/21 18:35 12/04/21 18:45 12/04/21 18:46 Temperature Pulse Rate 64 67 68 Respiratory Rate 17 15 19 Bl
[2021-12-05 17:06] LABS: Glucose Point of Care 118 mg/dl (65-105)
[2021-12-05 17:40] LABS: Hematocrit 34.3 % (37.0-47.0); Hemoglobin 11.5 g/dL (12.0-15.0)
[2021-12-05 17:54] LABS: Anion Gap 9 mmol/L (8-16); Blood Urea Nitrogen 15 mg/dL (7-17); Calcium 8.6 mg/dL (8.4-10.2); Carbon Dioxide 25 mmol/L (22-30); Chloride 106 mmol/L (98-107); Estimated CRCL calculation 43 ml/min; Estimated Glomerular Filt Rate > 60; Glucose 112 mg/dL (65-110); Potassium 3.6 mmol/L (3.4-5.0); Sodium 140 mmol/L (137-145)
[2021-12-05 20:11] LABS: Glucose Point of Care 144 mg/dl (65-105)
[2021-12-05] MEDS: CENTRAL LINE FLUSH 10 ML IV PUSH (21:03)
[2021-12-05] MEDS: LACTATED RINGERS 1,000 ML 60 ML IV CONT (22:44)
[2021-12-06] VITALS (13 sets, daily range): BP systolic 108–116; BP diastolic 48–88; PULSE 54–74; RESP 16–22; TEMP 36.3–37.1; O2SAT 91–100
[2021-12-06 06:13] LABS: Basophils Percent Auto 0.4 % (0.2-1.2); Eosinophils Absolute Auto 0.2 K/mm3 (0-0.3); Eosinophils Percent Auto 2.9 % (0-4.4); Immature Granulocyte Absolute 0.03 K/mm3 (0.00-0.031); Immature Granulocyte Percent A 0.4 % (0-0.5); Immature Platelet Fraction Pct 7.2 % (0.9-11.2); Lymphocytes Absolute Auto 1.61 K/mm3 (0.9-3.2); Lymphocytes Percent Auto 20.4 % (18.3-44.2); Mean Corpuscular HGB Conc 33.3 g/dl (32-36); Mean Corpuscular Hemoglobin 31.5 pg (26-34); Mean Corpuscular Volume 94.6 fl (80-100); Mean Platelet Volume 11.2 fl (7.4-10.4); Monocytes Percent Auto 12.7 % (2.6-8.5); Neutrophils Percent Auto 63.2 % (45.5-73.1); Platelet Count Result 116 k/mm3 (150-375); Red Blood Count 3.17 M/mm3 (4.2-5.4); Red Cell Distribution Width 13.3 % (11.5-14.5); White Blood Count 7.9 K/mm3 (4.5-10.0)
[2021-12-06 06:22] LABS: Albumin Level 3.1 g/dL (3.5-5.1); Anion Gap 6 mmol/L (8-16); Blood Urea Nitrogen 13 mg/dL (7-17); Calcium 8.4 mg/dL (8.4-10.2); Carbon Dioxide 29 mmol/L (22-30); Chloride 104 mmol/L (98-107); Estimated CRCL calculation 48 ml/min; Estimated Glomerular Filt Rate > 60; Glucose 105 mg/dL (65-110); Magnesium 1.5 mg/dL (1.6-2.3); Potassium 3.4 mmol/L (3.4-5.0); Sodium 139 mmol/L (137-145)
[2021-12-06 07:27] LABS: Glucose Point of Care 112 mg/dl (65-105)
[2021-12-06] MEDS: CENTRAL LINE FLUSH 10 ML IV PUSH ×2 (07:41→13:28)
[2021-12-06] MEDS: ASPIRIN 81 MG ENTERIC TABLET PO (09:06)
[2021-12-06] MEDS: FAMOTIDINE 10 MG TABLET PO (09:06)
[2021-12-06] MEDS: POTASSIUM CHLORIDE 20 MEQ TABLET PO (09:06)
[2021-12-06] MEDS: MAGNESIUM SULF 2 GM/WATER 50ML 2 GM/50 ML BAG IVPB (09:06)
[2021-12-06] MEDS: DOCUSATE SODIUM 100 MG CAPSULE PO (09:06)
[2021-12-06] MEDS: OXYBUTYNIN CHLORIDE 5 MG TABLET 15 MG PO (09:06)
[2021-12-06] MEDS: modafiniL (*CRX) 100 MG TABLET PO ×2 (09:06→13:28)
[2021-12-06] MEDS: MONTELUKAST SODIUM 10 MG TABLET PO (09:07)
[2021-12-06] MEDS: ASCORBIC ACID 500 MG TABLET PO (09:07)
[2021-12-06] MEDS: SERTRALINE HCL 50 MG TABLET PO (09:07)
[2021-12-06] MEDS: FLUTICASONE PROPIONATE 0.05% NA SPR 16 GM BTL (*BKC) 2 SPRAY NASAL (09:07)
[2021-12-06 11:56] LABS: Glucose Point of Care 116 mg/dl (65-105)
--- NOTE | 2021-12-06 12:17 | PCSTNOTE ---
Please refer to the Bedside Swallow Evaluation in the EMR. Please note, silent aspiration cannot be ruled out at bedside.
[2021-12-06 16:15] LABS: Glucose Point of Care 129 mg/dl (65-105)
--- NOTE | 2021-12-06 16:16 | PM.IMPN ---
Progress Note: A&P Assessment and Plan (1) Altered mental status: Code(s): R41.82 - Altered mental status, unspecified Status: Acute Assessment and Plan: UA consistent with UTI. CXR clear and CTA showing no PE or evidence of PNA. COVID and influenza are negative. The patient was hypoxic requiring oxygen for unclear reasons. Aspiration with bronchospasm? Occult PNA seems less likely. Bedside swallow evaluation noted. Diet adjusted. Wean O2 as tolerated. Mental status seems to be back to baseline. Suspect symptoms related to UTI. (2) Acute UTI: Code(s): N39.0 - Urinary tract infection, site not specified Status: Acute Assessment and Plan: UA noted. UCx growing staph aureus. BCx NGTD. Clinically improved. Continue Rocephin. Add Vanco. Check Echo. Remove Alba. (3) Hypotension: Code(s): I95.9 - Hypotension, unspecified Status: Acute Assessment and Plan: BP 73/31 on admission. Suspect related to UTI and sepsis (although does not meet the criteria for sepsis). This was occurring prior to central line placement and was the reason for the central line to be placed. BP better and more stable with IV fluids. Will stop IV fluids. (4) Hematoma of neck: Code(s): S10.93XA - Contusion of unspecified part of neck, initial encounter Status: Acute Assessment and Plan: Neck CTA showing deep right lower neck hematoma extending into the retropharyngeal space. Hgb was 12.5 but dropped to 10.9. No clinical evidence of airway compromise. Hgb stable this morning. Will monitor HH. (5) DM2 (diabetes mellitus, type 2): Code(s): E11.9 - Type 2 diabetes mellitus without complications Status: Chronic Assessment and Plan: A1c 5.7. The patient's blood glucose was reviewed on 12/06 Glucose remains well controlled. Diet controlled. (6) Dementia: Code(s): F03.90 - Unspecified dementia without behavioral disturbance Status: Chronic Assessment and Plan: The patient has known dementia and stays at a memory care unit. She has mild agitation and has lorazepam available as needed. (7) Hypothyroidism: Code(s): E03.9 - Hypothyroidism, unspecified Status: Chronic Assessment and Plan: TSH normal. Continue with levothyroxine. (8) Depression with anxiety: Code(s): F41.8 - Other specified anxiety disorders Status: Chronic Assessment and Plan: Mood stable. Continue with sertraline. Lorazepam available as needed Subjective Date/time seen: 12/06/21 16:16 Interval history: 76yo female with dementia, DM and hx of CVA here for altered mental status. Patient is alert but confused and unable to provide history. No complaints Review of Systems Review of Systems: ROS unobtainable: Yes unobtainable due to mental status Exam Narrative: AF 98.2 116/55 714 18 100% 1L Gen - NARD lying semi-recumbent in bed Neck - bruising noted right anterior and posterior-lateral at base of the neck with pain at the site Chest - bibasilar crackles, nml RR CV - RRR S1/S2. Tele showing occasional sinus arrhythmias Abd - Soft, NT/ND, Positive BS Ext - No pedal edema. Right femoral line in place. Neuro - Alert but confused. Psych - Nml mood and affect Skin - Warm and dry Objective Data Vital Signs Vital Signs: Vital Signs - 24 hr 12/05/21 18:00 12/05/21 20:00 12/05/21 20:00 Temperature 97.6 F Pulse Rate 68 63 Respiratory Rate 20 Blood Pressure 134/57 L Pulse Oximetry 100 100 Oxygen Delivery Nasal Cannula Oxygen Flow Rate 12/06/21 00:00 12/06/21 00:00 12/05/21 20:00 Temperature 97.7 F Pulse Rate 61 63 Respiratory Rate 22 H Blood Pressure 109/88 Pulse Oximetry 93 100 Oxygen Delivery Nasal Cannula Oxygen Flow Rate 12/05/21 22:00 12/06/21 00:00 12/06/21 02:00 Temperature Pulse Rate 62 60 58 L Respiratory Rate Blood Pressure Pulse Oximet
[2021-12-06] MEDS: AZITHROMYCIN 250 MG TABLET PO (16:59)
[2021-12-06] MEDS: SIMVASTATIN 10 MG TABLET PO (20:48)
[2021-12-06] MEDS: rOPINIRole HCL 1 MG TABLET PO (20:48)
[2021-12-07] VITALS: BP 114/57; PULSE 59; RESP 18; TEMP 36.5; O2SAT 98
--- NOTE | 2021-12-07 | ECHO_ITS ---
Patient Info Name: Aleta Howard Age: 76 years : 1945 Gender: Female Ht: 60 in Wt: 163 lbs BSA: 1.80 m2 HR: 59 bpm BP: 114 / 57 mmHg Heart Rhythm: Sinus Rhythm Technical Quality: Good Exam Date: 12/07/2021 8:51 AM Exam Location: [facility] Patient Status: Inpatient Admit Date: 12/05/2021 Staff Ordering Physician: Diomedes Carter MD Clinic Director: Vicki Parsons RDCS Attending Provider: Nayeli aMdison DO Exam Type: CA echo doppler color flow Study Info Indications I39 - Endocarditis and heart valve disorders in diseases classified elsewhere Complete two-dimensional, color flow and Doppler transthoracic echocardiogram is performed. Summary 1. Complete two-dimensional, color flow and Doppler transthoracic echocardiogram is performed. 2. Left ventricular hypertrophy with normal LV size and vigorous systolic contractility. 3. Moderate left atrial dilation. 4. Heavily calcified mitral valve annulus. 5. Very small amount of mitral regurgitation. 6. No infectious vegetations were identified. 7. Compared to examination from December of 2020 there is no significant difference. Left Ventricle Left ventricular chamber dimension is normal. Left ventricular systolic function is normal, estimated at 65-70%. There is moderate concentric increased left ventricular wall thickness. The left ventricular diastolic function is grade II diastolic dysfunction. Right Ventricle Right ventricular chamber dimension is normal. Left Atria Left atrial chamber dimension is moderately enlarged. Right Atria Right atrial chamber dimension is normal. Aortic Valve The aortic valve is trileaflet. There is mild aortic valve sclerosis. Pulmonic Valve The pulmonic valve is normal. Mitral Valve The mitral valve has normal leaflets. There is trace mitral valve regurgitation. The mitral valve annulus is severely calcified. Tricuspid Valve The tricuspid valve leaflets are normal. Pericardium/Pleural The pericardium appears normal. Aorta The aortic root size at the sinus of Valsalva is normal. Left Ventricular Outflow Tract Name Value Normal LVOT 2D LVOT Diameter 1.9 cm LVOT Doppler LVOT Peak Gradient 4 mmHg LVOT Mean Gradient 2 mmHg LVOT VTI 28 cm LVOT VTI/AV VTI Ratio 0.9 LVOT Stroke Volume 77 ml LVOT CO 4.9 l/min LVOT CI 2.7 l/min/m2 Pulmonic Valve Name Value Normal PV Doppler PV Peak Gradient 5 mmHg Mitral Valve Name Value Normal
[2021-12-07 04:45] LABS: Hemoglobin 9.9 g/dL (12.0-15.0); Immature Platelet Fraction Pct 8.5 % (0.9-11.2); Mean Corpuscular HGB Conc 34.1 g/dl (32-36); Mean Corpuscular Hemoglobin 31.7 pg (26-34); Mean Corpuscular Volume 92.9 fl (80-100); Mean Platelet Volume 11.5 fl (7.4-10.4); Platelet Count Result 123 k/mm3 (150-375); Red Blood Count 3.12 M/mm3 (4.2-5.4); Red Cell Distribution Width 13.1 % (11.5-14.5); White Blood Count 7.3 K/mm3 (4.5-10.0)
[2021-12-07 04:57] LABS: Anion Gap 8 mmol/L (8-16); Blood Urea Nitrogen 10 mg/dL (7-17); Calcium 8.1 mg/dL (8.4-10.2); Carbon Dioxide 26 mmol/L (22-30); Chloride 104 mmol/L (98-107); Estimated CRCL calculation 48 ml/min; Estimated Glomerular Filt Rate > 60; Glucose 118 mg/dL (65-110); Magnesium 1.8 mg/dL (1.6-2.3); Potassium 3.4 mmol/L (3.4-5.0); Sodium 138 mmol/L (137-145)
[2021-12-07] MEDS: LEVOTHYROXINE SODIUM 25 MCG TABLET PO (06:02)
[2021-12-07 08:00] VITALS: BP 122/54; PULSE 54; RESP 20; TEMP 36.4; O2SAT 97
[2021-12-07 10:43] LABS: INR 1.3; Partial Thromboplastin Time 32.9 SECONDS (22.3-36.8); Prothrombin Time 15.4 Seconds (11.1-14.7)
--- NOTE | 2021-12-07 11:04 | PM.IMPN ---
Progress Note: A&P Assessment and Plan (1) Altered mental status: Code(s): R41.82 - Altered mental status, unspecified Status: Acute Assessment and Plan: Patient presents with confusion and HoTN. UA consistent with UTI. Head CT showing no acute process. CXR clear and CTA showing no PE or evidence of PNA. COVID and influenza are negative. Mental status much improved. Suspect symptoms related to UTI. Follow. (2) Hypoxia: Code(s): R09.02 - Hypoxemia Status: Acute Assessment and Plan: The patient was hypoxic requiring oxygen for unclear reasons. Aspiration with bronchospasm? Occult PNA seems less likely. Bedside swallow evaluation noted. Diet adjusted. Repeat CXR now showing elevated right hemidiaphram and worsening airspace opacities. Aspiration? Wean O2 as tolerated. Add IS. Increase activity once central line out. (3) Acute UTI: Code(s): N39.0 - Urinary tract infection, site not specified Status: Acute Assessment and Plan: UA noted. UCx growing methicillin sensitive staph aureus. BCx NGTD. Echo pending. Clinically improved. Stop Rocephin. Stop Vanco. Change to levaquin to cover UTI and possible PNA. (4) Hypotension: Code(s): I95.9 - Hypotension, unspecified Status: Acute Assessment and Plan: BP 73/31 on admission. Suspect related to UTI and sepsis (although does not meet the criteria for sepsis). PNA? This was occurring prior to central line placement and was the reason for the central line to be placed. BP better and more stable with IV fluids. Able to stop IV fluids and BP remaining stable. (5) Hematoma of neck: Code(s): S10.93XA - Contusion of unspecified part of neck, initial encounter Status: Acute Assessment and Plan: Neck CTA showing deep right lower neck hematoma extending into the retropharyngeal space. Hgb was 12.5 but dropped to 10.9. No clinical evidence of airway compromise. Hgb remaining stable this morning. CXR showing right hemidiaphragm elevation; possible phrenic nerve damage. Will monitor HH. Add incentive spirometry. Repeat CT neck - if worsening, consider neurosurery or transfer. INR unchanged at 1.3. Will give VitK once. Lovenox ordered for this morning since HH stable but stopped once CXR results known. Patient did not receive any Lovenox. (6) DM2 (diabetes mellitus, type 2): Code(s): E11.9 - Type 2 diabetes mellitus without complications Status: Chronic Assessment and Plan: A1c 5.7. The patient's blood glucose was reviewed on 12/07 Glucose remains well controlled. Diet controlled. (7) Dementia: Code(s): F03.90 - Unspecified dementia without behavioral disturbance Status: Chronic Assessment and Plan: The patient has known dementia and stays at a memory care unit. She is more oriented today but still confused. Follow. She has lorazepam available as needed for agitation. (8) Hypothyroidism: Code(s): E03.9 - Hypothyroidism, unspecified Status: Chronic Assessment and Plan: TSH normal. Continue with levothyroxine. (9) Depression with anxiety: Code(s): F41.8 - Other specified anxiety disorders Status: Chronic Assessment and Plan: Mood stable. Continue with sertraline. Lorazepam available as needed Plan DVT prophylaxis: SCDs Code status: Full Diet: Regular, minced and moist level 5 diet Subjective Date/time seen: 12/07/21 11:04 Interval history: 76yo female with dementia, DM and hx of CVA here for altered mental status. 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 She provides the following hx but may be suspect: She denies chest pain or shortness of breath. She denies nausea or vomiting. No odynophagia or dysphagia. No numbness, tingling or weakness in her extremities. She does have a cough productive blood tinged sputum. But she did have a nose
[2021-12-07] MEDS: POTASSIUM CHLORIDE 20 MEQ TABLET PO (11:06)
[2021-12-07] MEDS: FAMOTIDINE 10 MG TABLET PO (11:07)
[2021-12-07] MEDS: OXYBUTYNIN CHLORIDE 5 MG TABLET 15 MG PO (11:07)
[2021-12-07] MEDS: ASCORBIC ACID 500 MG TABLET PO (11:07)
[2021-12-07] MEDS: DOCUSATE SODIUM 100 MG CAPSULE PO (11:07)
[2021-12-07] MEDS: SERTRALINE HCL 50 MG TABLET PO (11:07)
[2021-12-07] MEDS: ASPIRIN 81 MG ENTERIC TABLET PO (11:07)
[2021-12-07] MEDS: MONTELUKAST SODIUM 10 MG TABLET PO (11:08)
[2021-12-07] MEDS: FLUTICASONE PROPIONATE 0.05% NA SPR 16 GM BTL (*BKC) 2 SPRAY NASAL (11:08)
[2021-12-07] MEDS: levoFLOXacin 750 MG TABLET PO (13:10)
[2021-12-07] MEDS: modafiniL (*CRX) 100 MG TABLET PO (13:10)
[2021-12-07] MEDS: PHYTONADIONE 5 MG TABLET PO (13:10)
[2021-12-07 16:00] VITALS: BP 126/54; PULSE 80; RESP 20; TEMP 36.6; O2SAT 100
--- NOTE | 2021-12-07 18:15 | ADMGEN ---
This patient, Aleta Howard, was transferred to Medical Room 346-01. Patient/family oriented to hospital policies and general routines including ID bracelet, bed and alarms, visiting hours, pain management, procedures, bathroom and other care routines, personal items, smoking policy, room service/diet, and visiting hours. Information on how to activate the Rapid Response Team has been discussed. Patient/Family are encouraged to report perceived risks to care and to ask questions if they do not understand what they are told or what they should do.
[2021-12-07 18:35] VITALS: BP 116/58; PULSE 69; RESP 18; TEMP 36.4; O2SAT 95
--- NOTE | 2021-12-07 19:12 | PC.NURSE ---
This patient, Aleta Howard, was transferred to [ [id number]] on 12/07/21 at 1743Personal belongings sent with patient. Report given to [Sowmya CORDERO ]. Appropriate documentation sent with patient.
[2021-12-07 20:00] VITALS: PULSE 69; RESP 18; O2SAT 95
[2021-12-07] MEDS: SIMVASTATIN 10 MG TABLET PO (20:36)
[2021-12-07] MEDS: rOPINIRole HCL 1 MG TABLET PO (20:36)
[2021-12-08] VITALS (7 sets, daily range): BP systolic 104–118; BP diastolic 53–59; PULSE 60–66; RESP 14–16; TEMP 35.7–36.7; O2SAT 92–99
[2021-12-08 05:50] LABS: Hematocrit 30.1 % (37.0-47.0); Immature Platelet Fraction Pct 10.5 % (0.9-11.2); Mean Corpuscular HGB Conc 33.2 g/dl (32-36); Mean Corpuscular Hemoglobin 31.2 pg (26-34); Mean Corpuscular Volume 93.8 fl (80-100); Mean Platelet Volume 11.7 fl (7.4-10.4); Platelet Count Result 144 k/mm3 (150-375); Red Blood Count 3.21 M/mm3 (4.2-5.4); Red Cell Distribution Width 13.2 % (11.5-14.5)
[2021-12-08] MEDS: LEVOTHYROXINE SODIUM 25 MCG TABLET PO (05:50)
[2021-12-08 06:06] LABS: Alanine Aminotransferase 23 U/L (6-35); Albumin Level 3.2 g/dL (3.5-5.1); Alkaline Phosphatase 99 U/L (38-126); Anion Gap 7 mmol/L (8-16); Aspartate Amino Transferase 33 U/L (14-36); Bilirubin,Total 1.2 mg/dL (0.2-1.3); Blood Urea Nitrogen 14 mg/dL (7-17); Calcium 8.3 mg/dL (8.4-10.2); Carbon Dioxide 25 mmol/L (22-30); Chloride 106 mmol/L (98-107); Estimated CRCL calculation 48 ml/min; Estimated Glomerular Filt Rate > 60; Glucose 114 mg/dL (65-110); Potassium 3.8 mmol/L (3.4-5.0); Sodium 138 mmol/L (137-145)
[2021-12-08] MEDS: levoFLOXacin 750 MG TABLET PO (08:58)
[2021-12-08] MEDS: SERTRALINE HCL 50 MG TABLET PO (08:59)
[2021-12-08] MEDS: ASPIRIN 81 MG ENTERIC TABLET PO (08:59)
[2021-12-08] MEDS: FAMOTIDINE 10 MG TABLET PO (08:59)
[2021-12-08] MEDS: ASCORBIC ACID 500 MG TABLET PO (08:59)
[2021-12-08] MEDS: DOCUSATE SODIUM 100 MG CAPSULE PO (08:59)
[2021-12-08] MEDS: OXYBUTYNIN CHLORIDE 5 MG TABLET 15 MG PO (08:59)
[2021-12-08] MEDS: MONTELUKAST SODIUM 10 MG TABLET PO (09:00)
[2021-12-08] MEDS: FLUTICASONE PROPIONATE 0.05% NA SPR 16 GM BTL (*BKC) 2 SPRAY NASAL (09:00)
[2021-12-08] MEDS: modafiniL (*CRX) 100 MG TABLET PO ×2 (09:25→13:24)
--- NOTE | 2021-12-08 15:00 | PM.DS ---
DS: Admitting Diagnosis Discharge Date 12/08/21 Admitting Diagnosis altered mental status DS: Discharge Diagnosis Discharge Diagnosis (1) Altered mental status: Code(s): R41.82 - Altered mental status, unspecified Status: Acute (2) Hypoxia: Code(s): R09.02 - Hypoxemia Status: Acute (3) Acute UTI: Code(s): N39.0 - Urinary tract infection, site not specified Status: Acute (4) Hypotension: Code(s): I95.9 - Hypotension, unspecified Status: Acute (5) Hematoma of neck: Code(s): S10.93XA - Contusion of unspecified part of neck, initial encounter Status: Acute (6) DM2 (diabetes mellitus, type 2): Code(s): E11.9 - Type 2 diabetes mellitus without complications Status: Chronic (7) Dementia: Code(s): F03.90 - Unspecified dementia without behavioral disturbance Status: Chronic (8) Hypothyroidism: Code(s): E03.9 - Hypothyroidism, unspecified Status: Chronic (9) Depression with anxiety: Code(s): F41.8 - Other specified anxiety disorders Status: Chronic DS: Summary Hospital Course Reason for hospitalization: 76yo female with dementia, DM and hx of CVA here for altered mental status. Please see H&P for details. Hospital Course: Pateint brought to the ED for altered mental status. UA was consistent with UTI. CXR was clear and CTA showing no PE or evidence of PNA. COVID and influenza were negative. BP 73/31 on admission. Suspect related to UTI and sepsis (although does not meet the criteria for sepsis). This was occurring prior to central line placement and was the reason for the central line to be placed. BP improved with IV fluids. Will stop IV fluids and BP remained stable. She had poor IV access so central line attempted. The CTA chest shoed concerns for hematoma so Neck CTA performed. The Neck CTA showed deep right lower neck hematoma extending into the retropharyngeal space. Hgb was 12.5 but dropped to 10.9. No clinical evidence of airway compromise. Hgb remained stable in the 10 range. She did have a central femoral line placed for fluids but patient removed this. No excessive bleeding noted and Hgb remained stable. A repeat CXR showing worsening airspace disease with mild elevation of the right hemidiaphragm. A repeat CT neck showing small voulme of hematoma on the right neck and superior mediastinum with improvement and small pleural effusions but again no infiltrates to suggest PNA. The patient was hypoxic on admission requiring oxygen for unclear reasons. Aspiration with bronchospasm? Occult PNA seemed less likely given the findings above. Bedside swallow evaluation performed and they recommended minced and moist Level 5 diet. Her diet was adjusted. UCx grew MSSA. BCx NGTD. Echo showing EF 65-70% with Grade II diastolic dysfunction. No vegetations were identified. Compared to echocardiogram from last year, there was no significant change. She was treated with IV antibiotics initially this was wean to Levaquin for the UTI and to cover for bronchitis. We were able to wean O2 off. Mental status returned to baseline. Suspect mental status symptoms related to UTI.She overall did well and was able to be discharged on 12/08/21. Status at Discharge Cognitive/behavioral status at discharge: Stable Time Spent with Patient Time attestation: Total time spent providing and/or coordinating discharge services: 35 minutes Time spent: Greater than 30 minutes Exam Narrative: AF 98.1 105/53 66 16 92% ra Gen - NARD lying semi-recumbent in bed Neck - bruising noted right anterior and posterior-lateral at base of the neck Chest - bibasilar inspiratory crackles that improve with deep inspiration. CV - RRR S1/S2 Abd - Soft, NT/ND, Positive BS Ext - No pedal edema Psych - Nml mood and affect Skin - Warm and dry DS: Data Data Completed and Pending Labs on day of discharge: Labs from last 24 hours 12/08/2111/21
[2021-12-08] MEDS: rOPINIRole HCL 1 MG TABLET PO (20:16)
[2021-12-08] MEDS: SIMVASTATIN 10 MG TABLET PO (20:17)
[2021-12-09 06:00] VITALS: BP 127/63; PULSE 56; RESP 16; TEMP 36.7; O2SAT 96
[2021-12-09] MEDS: LEVOTHYROXINE SODIUM 25 MCG TABLET PO (06:06)
[2021-12-09] MEDS: OXYBUTYNIN CHLORIDE 5 MG TABLET 15 MG PO (08:25)
[2021-12-09] MEDS: DOCUSATE SODIUM 100 MG CAPSULE PO (08:25)
[2021-12-09] MEDS: ASPIRIN 81 MG ENTERIC TABLET PO (08:26)
[2021-12-09] MEDS: ASCORBIC ACID 500 MG TABLET PO (08:26)
[2021-12-09] MEDS: FLUTICASONE PROPIONATE 0.05% NA SPR 16 GM BTL (*BKC) 2 SPRAY NASAL (08:26)
[2021-12-09] MEDS: FAMOTIDINE 10 MG TABLET PO (08:26)
[2021-12-09] MEDS: SERTRALINE HCL 50 MG TABLET PO (08:26)
[2021-12-09] MEDS: MONTELUKAST SODIUM 10 MG TABLET PO (08:26)
[2021-12-09] MEDS: levoFLOXacin 750 MG TABLET PO (08:26)
[2021-12-09] MEDS: modafiniL (*CRX) 100 MG TABLET PO ×2 (08:30→13:47)
--- NOTE | 2021-12-09 14:27 | PM.IMPN ---
Progress Note: A&P Assessment and Plan (1) Altered mental status: Code(s): R41.82 - Altered mental status, unspecified Status: Acute Assessment and Plan: Patient presents with confusion and HoTN. UA consistent with UTI. Head CT showing no acute process. CXR clear and CTA showing no PE or evidence of PNA. COVID and influenza are negative. Mental status much improved. Suspect symptoms related to UTI. Follow. (2) Hypoxia: Code(s): R09.02 - Hypoxemia Status: Acute Assessment and Plan: The patient was hypoxic requiring oxygen for unclear reasons. Aspiration with bronchospasm? Occult PNA seems less likely. Bedside swallow evaluation noted. Diet adjusted. Repeat CXR now showing elevated right hemidiaphram and worsening airspace opacities. Bronchitis? Able to wean off O2. She is working with [facility] but is very weak and now will require SNF. Patient working with PT/OT. SNF being arranged (3) Acute UTI: Code(s): N39.0 - Urinary tract infection, site not specified Status: Acute Assessment and Plan: UA noted. UCx growing methicillin sensitive staph aureus. BCx NGTD. Echoshowing LVH, EF 65-70%, grade II diastolic dysfunction and moderate LAE. No vegetations. Clinically improved. Continue levaquin to cover UTI and possible bronchitis. (4) Hypotension: Code(s): I95.9 - Hypotension, unspecified Status: Acute Assessment and Plan: BP 73/31 on admission. Suspect related to UTI and sepsis (although does not meet the criteria for sepsis). This was occurring prior to central line placement and was the reason for the central line to be placed. BP better and more stable with IV fluids. Able to stop IV fluids and BP remaining stable. (5) Hematoma of neck: Code(s): S10.93XA - Contusion of unspecified part of neck, initial encounter Status: Acute Assessment and Plan: Neck CTA showing deep right lower neck hematoma extending into the retropharyngeal space. Hgb was 12.5 but dropped to 10.9. No clinical evidence of airway compromise. Hgb remaining stable this morning. CXR showing right hemidiaphragm elevation; possible phrenic nerve damage. Repeat CT neck showing improvement in size of hematoma. Lovenox ordered in the morning since HH stable but stopped once CXR results known. Patient did not receive any Lovenox. (6) DM2 (diabetes mellitus, type 2): Code(s): E11.9 - Type 2 diabetes mellitus without complications Status: Chronic Assessment and Plan: A1c 5.7. The patient's blood glucose was reviewed on 12/09 Glucose remains well controlled. Diet controlled. (7) Dementia: Code(s): F03.90 - Unspecified dementia without behavioral disturbance Status: Chronic Assessment and Plan: The patient has known dementia and stays at a assisted living (she is NOT at a memory care unit). She is alert but still confused. Follow. She has lorazepam available as needed for agitation. (8) Hypothyroidism: Code(s): E03.9 - Hypothyroidism, unspecified Status: Chronic Assessment and Plan: TSH normal. Continue with levothyroxine. (9) Depression with anxiety: Code(s): F41.8 - Other specified anxiety disorders Status: Chronic Assessment and Plan: Mood stable. Continue with sertraline. Lorazepam available as needed Plan DVT prophylaxis: SCDs Code status: Full Diet: Regular, minced and moist level 5 diet Subjective Date/time seen: 12/09/21 14:27 Interval history: 76yo female with dementia, DM and hx of CVA here for altered mental status. Eating okay but didn't like lunch. Complains of dizziness when walking. Only able to walk 6 feet. No CP or SOB. Exam Narrative: AF 98.0 127/63 56 16 96% ra Gen - NARD sitting up in chair Neck - bruising noted right anterior and posterior-lateral at base of the neck Chest - few bibasilar rhonchi, nml RR CV - RRR S1/S2 Abd - So
[2021-12-09 14:38] VITALS: BP 102/77; PULSE 60; RESP 16; TEMP 36.7; O2SAT 98
[2021-12-09] MEDS: SIMVASTATIN 10 MG TABLET PO (20:08)
[2021-12-09] MEDS: rOPINIRole HCL 1 MG TABLET PO (20:08)
[2021-12-09 22:00] VITALS: BP 118/77; PULSE 69; RESP 20; TEMP 36.6; O2SAT 100
[2021-12-10 04:47] VITALS: BP 111/49; PULSE 56; RESP 16; TEMP 36.4; O2SAT 95
[2021-12-10] MEDS: LEVOTHYROXINE SODIUM 25 MCG TABLET PO (05:34)
[2021-12-10] MEDS: ASPIRIN 81 MG ENTERIC TABLET PO (09:04)
[2021-12-10] MEDS: levoFLOXacin 750 MG TABLET PO (09:04)
[2021-12-10] MEDS: FAMOTIDINE 10 MG TABLET PO (09:04)
[2021-12-10] MEDS: DOCUSATE SODIUM 100 MG CAPSULE PO (09:04)
[2021-12-10] MEDS: ASCORBIC ACID 500 MG TABLET PO (09:04)
[2021-12-10] MEDS: FLUTICASONE PROPIONATE 0.05% NA SPR 16 GM BTL (*BKC) 2 SPRAY NASAL (09:05)
[2021-12-10] MEDS: modafiniL (*CRX) 100 MG TABLET PO ×2 (09:05→12:44)
[2021-12-10] MEDS: OXYBUTYNIN CHLORIDE 5 MG TABLET 15 MG PO (09:06)
[2021-12-10] MEDS: MONTELUKAST SODIUM 10 MG TABLET PO (09:06)
[2021-12-10] MEDS: SERTRALINE HCL 50 MG TABLET PO (09:06)
[2021-12-10 14:00] VITALS: BP 129/63; PULSE 74; RESP 16; TEMP 36.9; O2SAT 97
--- NOTE | 2021-12-10 14:52 | PM.DS ---
DS: Admitting Diagnosis Discharge Date 12/10/21 Admitting Diagnosis Altered mental status DS: Discharge Diagnosis Discharge Diagnosis (1) Altered mental status: Code(s): R41.82 - Altered mental status, unspecified Status: Acute (2) Hypoxia: Code(s): R09.02 - Hypoxemia Status: Acute (3) Acute UTI: Code(s): N39.0 - Urinary tract infection, site not specified Status: Acute (4) Hypotension: Code(s): I95.9 - Hypotension, unspecified Status: Acute (5) Hematoma of neck: Code(s): S10.93XA - Contusion of unspecified part of neck, initial encounter Status: Acute (6) DM2 (diabetes mellitus, type 2): Code(s): E11.9 - Type 2 diabetes mellitus without complications Status: Chronic (7) Dementia: Code(s): F03.90 - Unspecified dementia without behavioral disturbance Status: Chronic (8) Hypothyroidism: Code(s): E03.9 - Hypothyroidism, unspecified Status: Chronic (9) Depression with anxiety: Code(s): F41.8 - Other specified anxiety disorders Status: Chronic DS: Summary Hospital Course Reason for hospitalization: 76yo female with dementia, DM and hx of CVA here for altered mental status. Please see H&P for details. Hospital Course: Patient brought to the ED for altered mental status. UA was consistent with UTI. CXR was clear and CTA showing no PE or evidence of PNA. COVID and influenza were negative. BP 73/31 on admission. Suspect related to UTI and sepsis (although does not meet the criteria for sepsis). This was occurring prior to central line placement and was the reason for the central line to be placed. BP improved with IV fluids. We stopped IV fluids and BP remained stable. She had poor IV access so central line attempted. The CTA chest shoed concerns for hematoma so Neck CTA performed. The Neck CTA showed deep right lower neck hematoma extending into the retropharyngeal space. Hgb was 12.5 but dropped to 10.9. No clinical evidence of airway compromise. Hgb remained stable in the 10 range. She did have a central femoral line placed for fluids but patient removed this. No excessive bleeding noted and Hgb remained stable. A repeat CXR showing worsening airspace disease with mild elevation of the right hemidiaphragm. A repeat CT neck showing small voulme of hematoma on the right neck and superior mediastinum with improvement and small pleural effusions but again no infiltrates to suggest PNA. The patient was hypoxic on admission requiring oxygen for unclear reasons. Aspiration with bronchospasm? Occult PNA seemed less likely given the findings above. Bedside swallow evaluation performed and they recommended minced and moist Level 5 diet. Her diet was adjusted. UCx grew MSSA. BCx NGTD. Echo showing EF 65-70% with Grade II diastolic dysfunction.? No vegetations were identified.? Compared to echocardiogram from last year, there was no significant change. She was treated with IV antibiotics initially this was wean to Levaquin for the UTI and to cover for bronchitis. We were able to wean O2 off. Mental status returned to baseline. Suspect mental status symptoms related to UTI and she has underlying confusion. Therapy worked with her. She overall did well and was able to be discharged on 12/10/21. Status at Discharge Cognitive/behavioral status at discharge: Stable Time Spent with Patient Time attestation: Total time spent providing and/or coordinating discharge services: 32 minutes Time spent: Greater than 30 minutes Exam Narrative: AF 98.4 129/63 74 16 97% ra Gen - NARD Neck - bruising noted right anterior, posterior-lateral at base of the neck and chest Chest - clear anteriorly, nml RR CV - RRR S1/S2 Abd - Soft, NT/ND, Positive BS Ext - No pedal edema Psych - Nml mood and affect Skin - Warm and dry Discharge Plan Discharge Attending physician on discharge: Diomedes Carter Discharging Clinician: Dirk
== END 2021-12-10 17:50 | DRG 690 ==
LOC: ANHED 15:07 → ANHIMU 21:57 → ANH3MED 12-07 17:38
PROVIDERS: Nurse Practitioner; Admitting Provider Student in an Organized Health Care Education/Training Program; Emergency Provider Emergency Medicine; Visit Provider Internal Medicine
DX: N39.0 Urinary tract infection, site not specified (principal); B95.61 Methicillin susceptible Staphylococcus aureus infection as the cause of diseases classified elsewhere; J40 Bronchitis, not specified as acute or chronic; F41.8 Other specified anxiety disorders; E03.9 Hypothyroidism, unspecified; F03.90 Unspecified dementia, unspecified severity, without behavioral disturbance, psychotic disturbance, mood disturbance, and anxiety; R09.02 Hypoxemia; I95.9 Hypotension, unspecified; E11.9 Type 2 diabetes mellitus without complications; S10.83XA Contusion of other specified part of neck, initial encounter; X58.XXXA Exposure to other specified factors, initial encounter; Z20.822 Contact with and (suspected) exposure to COVID-19; E78.5 Hyperlipidemia, unspecified; G47.419 Narcolepsy without cataplexy; G25.81 Restless legs syndrome; Z96.659 Presence of unspecified artificial knee joint; Z86.73 Personal history of transient ischemic attack (TIA), and cerebral infarction without residual deficits; Z90.49 Acquired absence of other specified parts of digestive tract
CPT/HCPCS: 36415; 36556; 36600; 70450; 70490; 70498; 71045; 71275; 80048; 80053; 80069; 81001; 82140; 82728; 82805; 82948; 83036; 83605; 83690; 83735; 84100; 84443; 84484; 85014; 85018; 85025; 85027; 85055; 85610; 85730; 86140; 86850; 86900; 86901; 87040; 87086; 87147; 87181; 87186; 87804; 92610; 93005; 93306; 96365; 96375; 97110; 97161; 97165; 97530; 97535; 99285; A9270; C1751; C9803; G0378; J0456; J0696; J2405; J3370; J3475; J7030; J7120; Q9967; U0003; U0005

== ENCOUNTER 2022-05-29 11:46 | Emergency (ER) | payer MEDICARE, OTHER, SELFPAY ==
[2022-05-29] VITALS (22 sets, daily range): BP systolic 132–152; BP diastolic 53–71; PULSE 44–55; RESP 9–20; TEMP 35.9–36.6; O2SAT 97–100
--- NOTE | ~2022-05-29 | CT_ITS ---
CT head without contrast Indication: Status post fall COMPARISON: 12/04/2021 Technique: Serial scans were obtained through the brain without the administration of contrast. Dose reduction technique was used on this scan by utilizing automated exposure control and iterative recon struction technique. The dose-length product (DLP) was 681.00 mGy-cm. Findings: There is no evidence of intracranial hemorrhage, mass lesion, or acute infarct. The ventri cles and subarachnoid spaces are unremarkable. Low attenuation regions are seen within the periventr icular white matter bilaterally, likely representing changes from chronic microvascular ischemic dise ase. There is no evidence of edema, mass effect or midline shift. The visualized paranasal sinuses and mastoid air cells are clear. Soft tissue swelling noted in the right frontal scalp. Impression: No intracranial hemorrhage, mass, or acute infarct. Mild chronic white matter changes, as above. Right frontal scalp soft tissue swelling. Reviewed, dictated and finalized at [facility]. [employer] Impression: No intracranial hemorrhage, mass, or acute infarct. Mild chronic white matter changes, as above. Right frontal scalp soft tissue swelling.
--- NOTE | ~2022-05-29 | CT_ITS ---
Noncontrast CT scan of the cervical spine Technique: Multiple contiguous axial [address] images of the cervical spine were obtained and rec onstructed in 2D sagittal and coronal planes on the acquisition scanner. Dose reduction technique was used on this scan by utilizing automated exposure control, adjustment of the mA and/or kV according to patient size. Clinical History: Pain Findings: No fractures or dislocations. Scattered mild facet joint degenerative changes are present there is uncovertebral degenerative change at C5-C6. There is moderate degenerative disc narrowing at C5-C6 and C6-C7. The remaining intervertebral disc spaces are preserved. No prevertebral soft tissu e swelling. Impression: No fracture or subluxation of the cervical spine. Mild degenerative change, as above. Reviewed, dictated and finalized at location . PER COUNTER[employer] Impression: No fracture or subluxation of the cervical spine. Mild degenerative change, as above.
--- NOTE | 2022-05-29 12:31 | ED.FALL ---
HPI - Fall General Chief Complaint: Fall Stated Complaint: fall/head injury Time Seen by Provider: 05/29/22 12:02 History of Present Illness HPI Narrative: Patient is a 76-year-old female presenting after ground-level fall. Patient states that she was getting up out of bed and then she fell to the floor. She thinks that she lost her balance. She denies losing consciousness. States that she remembers striking her head on the floor. EMS was called and brought her in for evaluation. Patient states that she has a large bump on her forehead that is somewhat sore but otherwise denies complaints. No neck or back pain. No numbness or weakness, vision changes, chest pain, shortness of breath, abdominal pain, nausea or vomiting, or extremity injuries. Patient's son states that the patient was slightly more confused than normal several days ago. States that she does frequently get UTIs. Related Data Home Medications Medication Instructions Recorded Confirmed Calcium 600 + D(3) 2 tablet PO DAILY 12/13/20 12/04/21 ascorbic acid (vitamin C) 500 mg 500 mg PO DAILY 12/13/20 12/04/21 tablet (Vitamin C) aspirin 81 mg tablet 81 mg PO DAILY 12/13/20 12/04/21 docusate sodium 100 mg tablet 100 mg PO DAILY 12/13/20 12/04/21 famotidine 20 mg tablet 10 mg PO DAILY 12/13/20 12/04/21 fluticasone propionate 50 50 mcg intranasal DAILY 12/13/20 12/04/21 mcg/actuation nasal spray,suspension levothyroxine 25 mcg tablet 25 mcg PO DAILY 12/13/20 12/04/21 modafinil 100 mg tablet 50 mg PO QNOON 12/13/20 12/04/21 montelukast 10 mg tablet 10 mg PO DAILY 12/13/20 12/04/21 ropinirole 1 mg tablet 1 mg PO HS 12/13/20 12/04/21 sertraline 50 mg tablet 50 mg PO DAILY 12/13/20 12/04/21 simvastatin 10 mg tablet 10 mg PO HS 12/13/20 12/04/21 acetaminophen 650 mg tablet 650 mg PO Q6H PRN Fever Or Pain 01/12/21 12/04/21 albuterol 90 mcg/actuation aerosol 90 mcg inhalation Q4-5H PRN 01/12/21 12/04/21 inhaler Shortness Of Breath Or Wheezing loperamide 2 mg capsule 2 mg PO Q4H PRN Diarrhea 01/12/21 12/04/21 (Anti-Diarrheal (loperamide)) lorazepam 1 mg tablet 0.5 mg PO BID PRN Agitation 01/12/21 12/04/21 meclizine 25 mg tablet 25 mg PO TID PRN Dizziness 01/12/21 12/04/21 metformin 500 mg tablet 500 mg PO BID 01/12/21 12/04/21 oxybutynin chloride 5 mg tablet 15 mg PO DAILY 01/12/21 12/04/21 nystatin-triamcinolone topical 1 ea topical QID PRN Rash 12/04/21 12/04/21 ointment Allergies Allergy/AdvReac Type Severity Reaction Status Date / Time No Known Allergies Allergy Verified 05/29/22 12:02 Review of Systems Review of Systems: All systems reviewed & are unremarkable except as noted in HPI and below PMFSH Past Medical History Medical History Dementia Depression with anxiety Diverticulitis DM2 (diabetes mellitus, type 2) History of CVA (cerebrovascular accident) Hyperlipidemia Hypothyroidism Narcolepsy Restless leg Suspected COVID-19 virus infection Surgical History Surgical History H/O lumpectomy H/O: hysterectomy History of total knee arthroplasty Hx of cholecystectomy S/P colectomy Family History Family History Father Bone cancer Mother Cerebrovascular accident Other Unknown family medical history Social History Social History Social History: She is . she is listed as a full code.She has two children. However her daughter Eloy Amanda has recently from cancer. Now her son is the durable power ip attorney for healthcare. Nonsmoker. no alcohol. she retired from [employer] Code status full code Smoking status: Never smoker Alcohol intake: unknown Substance use: never Substance use type: does not use Spiritual care concerns: No Exam Narrative: GENERAL: Well-appearing,
--- NOTE | 2022-05-29 12:34 | ECG_ITS ---
Measurements Intervals [place] Rate: 46 P: 17 [place]: 180 QRS: -33 QRSD: 118 T: 56 QT: 464 QTc: 410 Interpretive Statements SINUS BRADYCARDIA LEFT AXIS DEVIATION INTRAVENTRICULAR CONDUCTION DELAY LEFT VENTRICULAR HYPERTROPHY AND ST-T CHANGE CANNOT RULE OUT SEPTAL INFARCT, AGE INDETERMINATE MINIMAL Q WAVES- HIGH LATERAL LEADS ABNORMAL ECG COMPARED TO ECG 12/04/2021 17:07:26 SINUS BRADYCARDIA NOW PRESENT Electronically Signed On 05-29-2022 14:14:29 [employer]ERIAL HAND[employer]ER by Paul Frederick D.O.
[2022-05-29] MEDS: ACETAMINOPHEN 500 MG TABLET 1000 MG PO (12:35)
--- NOTE | 2022-05-29 12:45 | PC.NURSE ---
Pt off floor to CT scan. Son at bedside, updated on plan of care.
--- NOTE | 2022-05-29 13:03 | PC.NURSE ---
Assisted to bedpan, still trying at this time.
[2022-05-29 14:04] LABS: Appearance Urine Clear (Clear); Bilirubin Urine Negative (Negative); Blood Urine Negative (Negative); Color Urine Yellow (Yellow); Glucose Urine UA Negative (Negative); Ketones Urine Negative (Negative); Leukocyte Esterase Ur Negative LEU/UL (Negative); Nitrate Urine Negative (Negative); Protein Urine Negative (Negative); Specific Grav Ur 1.015 (1.001-1.035); Urobilinogen Urine 0.2 mg/dL (<2.0); pH Urine 8.5 (5.0-9.0)
[2022-05-29 15:00] LABS: Add Urine Microscopic? NO
== END 2022-05-29 15:54 ==
PROVIDERS: Emergency Provider Emergency Medicine
DX: S00.83XA Contusion of other part of head, initial encounter (principal); F03.90 Unspecified dementia, unspecified severity, without behavioral disturbance, psychotic disturbance, mood disturbance, and anxiety; E11.9 Type 2 diabetes mellitus without complications; E78.5 Hyperlipidemia, unspecified; E03.9 Hypothyroidism, unspecified; G25.81 Restless legs syndrome; F41.8 Other specified anxiety disorders; Z96.659 Presence of unspecified artificial knee joint; Z86.73 Personal history of transient ischemic attack (TIA), and cerebral infarction without residual deficits; Z90.710 Acquired absence of both cervix and uterus; Z90.49 Acquired absence of other specified parts of digestive tract; R00.1 Bradycardia, unspecified; I45.9 Conduction disorder, unspecified; I51.7 Cardiomegaly; R94.31 Abnormal electrocardiogram [ECG] [EKG]; Z79.84 Long term (current) use of oral hypoglycemic drugs; Z79.82 Long term (current) use of aspirin; W06.XXXA Fall from bed, initial encounter
CPT/HCPCS: 70450; 72125; 81003; 93005; 99284; A9270

== ENCOUNTER 2022-06-12 11:53 | Inpatient (IN) | payer MEDICARE, OTHER, SELFPAY ==
[2022-06-12] VITALS (16 sets, daily range): BP systolic 113–155; BP diastolic 50–95; PULSE 46–80; RESP 12–23; TEMP 36.3–36.6; O2SAT 98–100; BMI 32.6
--- NOTE | ~2022-06-12 | CT_ITS ---
EXAMINATION: CTA chest PE protocol DATE: 06/12/2022 21:07 INDICATION: Pneumonia. Delirium. TECHNIQUE: Computed tomography angiography (CTA) of the chest was performed with 100 mL Omnipaque-350 intravenous contrast timed to evaluate the pulmonary arteries. Coronal maximum intensity projection 3D-reconstructions were created by the technologist. Automated exposure control and iterative reconst ruction technique were employed. Exam dose: 1075.12 mGy-cm total exam DLP. COMPARISON: 06/12/2022 portable AP chest 12/04/2021 CT pulmonary scan FINDINGS: There is diagnostic contrast enhancement of the pulmonary arteries and no evidence of pulmo nary embolism. No thoracic aortic aneurysm. Heart size is within normal limits. No hilar or mediastinal mass lesion or lymphadenopathy. Interval resolution of right lower cervical a nd mediastinal hematoma since 12/04/2021. Scattered bilateral areas of atelectasis and/or scarring appear relatively stable since 12/04/2021. Diffuse idiopathic skeletal hyperostosis of the thoracic spine. No suspicious osteolytic or osteoblas tic lesions. IMPRESSION: No evidence of pulmonary embolism Reviewed, dictated and finalized at [facility]. Reviewed, dictated and finalized at location A.
--- NOTE | ~2022-06-12 | XR_ITS ---
EXAMINATION: XR chest 1V portable INDICATION: Transient alteration of awareness TECHNIQUE: Portable AP chest at 1245 hours COMPARISON: 12/07/2021 FINDINGS: There are minimal airspace opacities of the left lung base. No pleural effusion or pneumoth orax. The cardiomediastinal silhouette is normal. Surgical clips in the right upper quadrant are like ly from prior cholecystectomy. IMPRESSION: 1. Left basilar airspace opacity, consistent with atelectasis versus Reviewed, dictated and finalized at location L.
--- NOTE | ~2022-06-12 | CT_ITS ---
EXAMINATION: CT brain wo con INDICATION: Headache COMPARISON: None TECHNIQUE: Standard unenhanced head CT. The dose-length product (DLP) was 681.00 mGy-cm. The mA was a djusted according to patient size. Iterative reconstruction technique was employed. FINDINGS: There is no acute intraparenchymal hemorrhage. No evidence of mass lesion. No evidence of a cute infarction. There is mild periventricular and subcortical hypodensity probably related to small vessel ischemic disease. There is mild prominence of the sulci and ventricles related to cerebral atr ophy. Intracranial calcified cerebral atherosclerosis is noted. There are no extra-axial collections. There is no mass effect or midline shift. Changes in the globes are likely from ocular lens surgery. The visualized sinuses and mastoid air cells are well aerated. IMPRESSION: 1. No acute intracranial abnormality. 2. Age related findings. Reviewed, dictated and finalized at location L.
--- NOTE | 2022-06-12 12:07 | ED.AMS ---
HPI - Altered Mental Status General Chief Complaint: Altered Mental Status Stated Complaint: ams Time Seen by Provider: 06/12/22 12:05 Source: EMS Mode of arrival: EMS Limitations: altered mental status and clinical condition History of Present Illness HPI narrative: Patient is a 76-year-old female with a history of hypertension, hyperlipidemia, hypothyroidism, CVA, recurrent urinary tract infections presenting to the emergency department for evaluation of altered mental status. Patient has been confused at facility, sent here for evaluation. Patient noted to be mildly bradycardic for EMS crew, otherwise vital signs normal and glucose normal. At the time of my assessment, patient is mildly distressed appearing. She is confused. She can follow simple commands. She is protecting her airway and is awake and alert. Patient is able to state her name is not able to provide additional history. Additional history was provided by EMS crew as well as external medical record review. Related Data Home Medications Medication Instructions Recorded Confirmed aspirin 81 mg tablet 81 mg PO DAILY 12/13/20 06/12/22 docusate sodium 100 mg tablet 100 mg PO DAILY 12/13/20 06/12/22 famotidine 20 mg tablet 10 mg PO DAILY 12/13/20 06/12/22 fluticasone propionate 50 50 mcg intranasal DAILY 12/13/20 06/12/22 mcg/actuation nasal spray,suspension levothyroxine 25 mcg tablet 25 mcg PO DAILY 12/13/20 06/12/22 montelukast 10 mg tablet 10 mg PO DAILY 12/13/20 06/12/22 ropinirole 1 mg tablet 1 mg PO HS 12/13/20 06/12/22 sertraline 50 mg tablet 50 mg PO DAILY 12/13/20 06/12/22 simvastatin 10 mg tablet 10 mg PO HS 12/13/20 06/12/22 acetaminophen 650 mg tablet 650 mg PO Q6H PRN Fever Or Pain 01/12/21 06/12/22 albuterol 90 mcg/actuation aerosol 90 mcg inhalation Q4-5H PRN 01/12/21 06/12/22 inhaler Shortness Of Breath Or Wheezing loperamide 2 mg capsule 2 mg PO Q4H PRN Diarrhea 01/12/21 06/12/22 (Anti-Diarrheal (loperamide)) lorazepam 1 mg tablet 0.5 mg PO Q12H PRN Agitation 01/12/21 06/12/22 meclizine 25 mg tablet 25 mg PO TID PRN Dizziness 01/12/21 06/12/22 metformin 500 mg tablet 500 mg PO BIDWM 01/12/21 06/12/22 oxybutynin chloride 5 mg tablet 15 mg PO DAILY 01/12/21 06/12/22 cholecalciferol (vitamin D3) 125 1,250 mcg PO WEEKLY 06/12/22 06/12/22 mcg (5,000 unit) tablet (Vitamin D3) triamcinolone acetonide 0.025 % 1 applic topical QID PRN Rash 06/12/22 06/12/22 topical ointment Allergies Allergy/AdvReac Type Severity Reaction Status Date / Time No Known Allergies Allergy Verified 06/12/22 17:53 Review of Systems Review of Systems: ROS unobtainable: Yes unobtainable due to mental status PMFSH Past Medical History Medical History Dementia Depression with anxiety Diverticulitis DM2 (diabetes mellitus, type 2) History of CVA (cerebrovascular accident) Hyperlipidemia Hypothyroidism Narcolepsy Restless leg Suspected COVID-19 virus infection Surgical History Surgical History H/O lumpectomy H/O: hysterectomy History of total knee arthroplasty Hx of cholecystectomy S/P colectomy Family History Family History Father Bone cancer Mother Cerebrovascular accident Other Unknown family medical history Social History Social History Social History: She is . she is listed as a full code.She has two children. However her daughter Eloy Amanda has recently from cancer. Now her son is the durable power commercial real estate attorney for healthcare. Nonsmoker. no alcohol. she retired from [employer] Code status full code Smoking status: Never smoker Alcohol intake: unknown Substance use: never Substance use type: does not use Spiritual care concerns: No Exam Narrative: GENERAL: Awake, alert,
--- NOTE | 2022-06-12 12:09 | ECG_ITS ---
Measurements Intervals [place] Rate: 52 P: 116 MT: 179 QRS: -36 QRSD: 119 T: 66 QT: 437 QTc: 409 Interpretive Statements SINUS BRADYCARDIA ATRIAL PREMATURE COMPLEX INTRAVENTRICULAR CONDUCTION DELAY LEFT VENTRICULAR HYPERTROPHY AND ST-T CHANGE BORDERLINE R WAVE PROGRESSION, ANTERIOR LEADS BASELINE ARTIFACT- I, II, III, AVR, AVL, AVF, V1-V2 BORDERLINE ECG COMPARED TO ECG 05/29/2022 13:57:08 HEART RATE HAS INCREASED Electronically Signed On 06-12-2022 15:53:40 CDT by Paul Frederick D.O.
[2022-06-12 13:12] LABS: Alveolar/Arterial O2 Gradient 38.8 mmHg; Base Excess ABG 2.2 mEq/l (+/-2.0); Carboxyhemoglobin 0.2 % THb (0-2.0); Fractional Inspired Oxygen 21 %; HCO3 ABG 21.2 mEq/l (22.0-26.0); Methemoglobin ABG 0.2 %THb (0-1.5); Oxyhemoglobin 96.6 % THb (90.0-100.0); PO2 ABG 85.7 mmHg (80.0-100.0); PO2 FiO2 Ratio Arterial Blood 4.08 %; Total Hemoglobin 14.7 g/dL (12.0-18.0)
[2022-06-12 13:15] LABS: Modified Allen's Test Pass; PCO2 ABG 21.1 mmHg (35.0-45.0); Site Drawn RIGHT RADIAL
[2022-06-12] MEDS: SODIUM CHLORIDE 0.9% IV 1,000 ML 999 ML IV CONT ×2 (13:15→14:01)
[2022-06-12 13:47] LABS: CRP 0.6 mg/dL (<1.0)
[2022-06-12 13:58] LABS: Influenza A QL RT-PCR Negative (Negative); Influenza B QL RT-PCR Negative (Negative); RSV RNA, RT-PCR Negative (Negative); SARS-CoV-2 RNA PCR Negative
[2022-06-12 14:58] LABS: Basophils Absolute Auto 0.1 K/mm3 (0.0-0.1); Basophils Percent Auto 0.9 % (0.2-1.2); Eosinophils Absolute Auto 0.3 K/mm3 (0-0.3); Eosinophils Percent Auto 2.7 % (0-4.4); Hematocrit 42.9 % (37.0-47.0); Hemoglobin 14.6 g/dL (12.0-15.0); Immature Granulocyte Absolute 0.05 K/mm3 (0.00-0.031); Immature Granulocyte Percent A 0.5 % (0-0.5); Lymphocytes Absolute Auto 3.58 K/mm3 (0.9-3.2); Lymphocytes Percent Auto 37.3 % (18.3-44.2); Mean Corpuscular Hemoglobin 31.1 pg (26-34); Mean Corpuscular Volume 91.3 fl (80-100); Mean Platelet Volume 12.2 fl (7.4-10.4); Monocytes Absolute Auto 0.7 K/mm3 (0.1-0.6); Monocytes Percent Auto 7.3 % (2.6-8.5); Neutrophils Absolute Auto 4.9 K/mm3 (1.3-6.7); Neutrophils Percent Auto 51.3 % (45.5-73.1); Platelet Count Result 164 k/mm3 (150-375); Red Cell Distribution Width 13.3 % (11.5-14.5); White Blood Count 9.6 K/mm3 (4.5-10.0)
[2022-06-12 15:10] LABS: Partial Thromboplastin Time 27.3 SECONDS (22.3-36.8)
[2022-06-12 15:23] LABS: Lactic Acid Reflex 1.6 mmol/L (0.7-2.0)
[2022-06-12 15:28] LABS: Appearance Urine Clear (Clear); Bacteria Urine None Seen /hpf; Bilirubin Urine Negative (Negative); Blood Urine Negative (Negative); Color Urine Yellow (Yellow); Glucose Urine UA Negative (Negative); Ketones Urine Negative (Negative); Leukocyte Esterase Ur Trace LEU/UL (Negative); Need Manual Microscopic Reviewed; Nitrate Urine Negative (Negative); Non Pathogenic Casts 0-2; Protein Urine Negative (Negative); RBC Urine 0-2 /hpf (0-2); Specific Grav Ur 1.012 (1.001-1.035); Squamous Epithelial Cell Urine None seen /hpf (Few); WBC Urine 0-5 /hpf; pH Urine 8.5 (5.0-9.0)
[2022-06-12 15:36] LABS: Add Urine Microscopic? YES
[2022-06-12 15:39] LABS: Prothrombin Time 13.2 Seconds (11.1-14.7)
--- NOTE | 2022-06-12 17:40 | ADMGEN ---
This patient, Aleta Howard, was admitted to Medical Room 246-. Patient/family oriented to hospital policies and general routines including ID bracelet, bed and alarms, visiting hours, pain management, procedures, bathroom and other care routines, personal items, smoking policy, room service/diet, and visiting hours. Information on how to activate the Rapid Response Team has been discussed. Patient/Family are encouraged to report perceived risks to care and to ask questions if they do not understand what they are told or what they should do.
[2022-06-12] MEDS: LACTATED RINGERS 1,000 ML 125 ML IV CONT (19:29)
[2022-06-12 19:45] LABS: Alanine Aminotransferase 20 U/L (6-35); Albumin Level 4.5 g/dL (3.5-5.1); Alkaline Phosphatase 122 U/L (38-126); Anion Gap 10 mmol/L (8-16); Aspartate Amino Transferase 34 U/L (14-36); Bilirubin,Total 1.6 mg/dL (0.2-1.3); Blood Urea Nitrogen 19 mg/dL (7-17); Carbon Dioxide 21 mmol/L (22-30); Chloride 112 mmol/L (98-107); Estimated CRCL calculation 48 ml/min; Estimated Glomerular Filt Rate > 60; Glucose 98 mg/dL (65-110); Potassium 4.1 mmol/L (3.4-5.0); Sodium 143 mmol/L (137-145)
[2022-06-12 19:55] LABS: Troponin I 0.034 ng/mL (0.000-0.034)
--- NOTE | 2022-06-12 20:46 | PC.NURSE ---
Pt taken down to get chest CTA. 2 L oxygen maintained. Belongings remain in room.
--- NOTE | 2022-06-12 21:17 | PM.IMHP ---
H&P: HPI History of Present Illness Date/Time: 06/12/22 21:17 Chief Complaint: Altered mental status Narrative: This is a 76 year old female patient with a history of hypertension and CVA. The patient presented to the emergency department for status patient has been confused at facility. The patient was found have a normal glucose. The patient was confused in the emergency room. She was following simple commands. She is awake and talking. The patient has a purple bruise to the right side of her face. Chest x-ray was read as left basilar airspace opacities consistent with atelectasis. Head CT was read as no acute intracranial abnormality age-related findings. Chest CTA was read as no evidence of pulmonary embolism. ABGs pH 7.620, pCO2 21.1. Her urine was negative and influenza A/B RSV and COVID are negative. The patient was given IV fluid, Rocephin, and azithromycin. The patient is being being admitted to inpatient status on the date of service of 06/12/2022 Review of Systems Review of Systems: All systems reviewed & are unremarkable except as noted in HPI and below Constitutional: Constitutional: Reports as per HPI and Reports no additional constitutional complaints Eyes: Eyes: Reports as per HPI and Reports no additional eye complaints ENT: Reports system reviewed and no additional complaints, except as documented and Reports Normal hearing present Cardiovascular: Cardiovascular: Reports no additional cardiovascular complaints Respiratory: Respiratory: Reports no additional respiratory complaints and Reports no additional respiratory complaints Gastrointestinal: Gastrointestinal: Reports as per HPI and Reports no additional gastrointestinal complaints Musculoskeletal: Musculoskeletal: Reports no additional musculoskeletal complaints Integumentary/Breasts: Skin/Breast: Reports system reviewed and no additional complaints, except as docu and Reports as per HPI Neurologic: Reports system reviewed and no additional complaints, except as documented, Reports as per HPI and Reports Normal hearing present Psychiatric: Psychiatric: Reports no additional psychiatric complaints and Reports as per HPI Endocrine: Endocrine: Reports no additional endocrine complaints Hematologic/Lymphatic: Hematologic/Lymphatic: Reports no additional hematologic/lymphatic complaints Allergic/Immunologic: Allergic/Immunologic: Reports no additional allergic/immunologic complaints [facility] Past Medical History Medical History Dementia Depression with anxiety Diverticulitis DM2 (diabetes mellitus, type 2) History of CVA (cerebrovascular accident) Hyperlipidemia Hypothyroidism Narcolepsy Restless leg Suspected COVID-19 virus infection Surgical History Surgical History H/O lumpectomy H/O: hysterectomy History of total knee arthroplasty Hx of cholecystectomy S/P colectomy Family History Family History Father Bone cancer Mother Cerebrovascular accident Other Unknown family medical history Social History Social History Social History: She is . she is listed as a full code.She has two children. However her daughter Eloy Amanda has recently from cancer. Now her son is the durable power compliance attorney for healthcare. Nonsmoker. no alcohol. she retired from [employer] Code status full code Smoking status: Never smoker Alcohol intake: unknown Substance use: never Substance use type: does not use Spiritual care concerns: No Meds Home Medications and Allergies Home Medications Medication Instructions Recorded Confirmed Type aspirin 81 mg tablet 81 mg PO DAILY 12/13/20 06/12/22 History docusate sodium 100 mg tablet 100 mg PO DAILY 12/13/20 06/12/22 History famotidine 20 mg tab
[2022-06-13] VITALS (11 sets, daily range): BP systolic 101–115; BP diastolic 47–62; PULSE 53–62; RESP 15–18; TEMP 36.2–36.7; O2SAT 95–100
[2022-06-13] MEDS: ACETAMINOPHEN 325 MG TABLET 650 MG PO (03:08)
[2022-06-13 04:50] LABS: Alanine Aminotransferase 20 U/L (6-35); Albumin Level 5.1 g/dL (3.5-5.1); Alkaline Phosphatase 136 U/L (38-126); Anion Gap 13 mmol/L (8-16); Aspartate Amino Transferase 40 U/L (14-36); Bilirubin,Total 1.2 mg/dL (0.2-1.3); Blood Urea Nitrogen 24 mg/dL (7-17); CRP 0.7 mg/dL (<1.0); Calcium 10.5 mg/dL (8.4-10.2); Carbon Dioxide 22 mmol/L (22-30); Chloride 107 mmol/L (98-107); Estimated CRCL calculation 43 ml/min; Estimated Glomerular Filt Rate > 60; Glucose 92 mg/dL (65-110); Potassium 5.1 mmol/L (3.4-5.0); Sodium 142 mmol/L (137-145)
[2022-06-13 05:03] LABS: Procalcitonin 0.1 ng/mL
[2022-06-13] MEDS: LEVOTHYROXINE SODIUM 25 MCG TABLET PO (05:40)
[2022-06-13 07:07] LABS: Basophils Absolute Auto 0.1 K/mm3 (0.0-0.1); Basophils Percent Auto 0.9 % (0.2-1.2); Eosinophils Absolute Auto 0.3 K/mm3 (0-0.3); Eosinophils Percent Auto 4.4 % (0-4.4); Hematocrit 36.8 % (37.0-47.0); Hemoglobin 12.1 g/dL (12.0-15.0); Immature Granulocyte Absolute 0.04 K/mm3 (0.00-0.031); Immature Granulocyte Percent A 0.6 % (0-0.5); Immature Platelet Fraction Pct 6.5 % (0.9-11.2); Lymphocytes Absolute Auto 1.83 K/mm3 (0.9-3.2); Lymphocytes Percent Auto 27.5 % (18.3-44.2); Mean Corpuscular HGB Conc 32.9 g/dl (32-36); Mean Corpuscular Volume 91.3 fl (80-100); Mean Platelet Volume 11.3 fl (7.4-10.4); Monocytes Absolute Auto 0.7 K/mm3 (0.1-0.6); Monocytes Percent Auto 10.5 % (2.6-8.5); Neutrophils Absolute Auto 3.7 K/mm3 (1.3-6.7); Neutrophils Percent Auto 56.1 % (45.5-73.1); Platelet Count Result 137 k/mm3 (150-375); Red Blood Count 4.03 M/mm3 (4.2-5.4); Red Cell Distribution Width 13.2 % (11.5-14.5); White Blood Count 6.7 K/mm3 (4.5-10.0)
[2022-06-13 07:22] LABS: Alanine Aminotransferase 15 U/L (6-35); Albumin Level 3.4 g/dL (3.5-5.1); Alkaline Phosphatase 90 U/L (38-126); Anion Gap 5 mmol/L (8-16); Aspartate Amino Transferase 22 U/L (14-36); Bilirubin,Total 1.1 mg/dL (0.2-1.3); Blood Urea Nitrogen 18 mg/dL (7-17); Calcium 8.5 mg/dL (8.4-10.2); Carbon Dioxide 25 mmol/L (22-30); Chloride 109 mmol/L (98-107); Estimated CRCL calculation 39 ml/min; Estimated Glomerular Filt Rate 54; Glucose 105 mg/dL (65-110); Magnesium 1.7 mg/dL (1.6-2.3); Potassium 3.8 mmol/L (3.4-5.0); Sodium 139 mmol/L (137-145)
--- NOTE | 2022-06-13 07:42 | P.PNIM_ITS ---
Progress Note: A&P Assessment and Plan (1) Pneumonia: Qualifiers: Laterality: unspecified laterality Lung location: unspecified part of lung Pneumonia type: due to unspecified organism Qualified Code(s): J18.9 - Pneumonia, unspecified organism Code(s): J18.9 - Pneumonia, unspecified organism Status: Acute Assessment and Plan: * Chest xray indicated possible opacity * Chest CTA no PE or PNA indicated * Sputum and blood cultures pending * COVID, influenza, RSV negative * Stop antibiotics * Procal is 0.1 * Not convinced this is pneumonia (2) Restless leg: Code(s): G25.81 - Restless legs syndrome Status: Chronic Assessment and Plan: * Continue with Requip * Chronic and stable (3) Hyperlipidemia: Code(s): E78.5 - Hyperlipidemia, unspecified Status: Chronic Assessment and Plan: * Continue with Zocor * LFTs stable * Chronic (4) Hypothyroidism: Code(s): E03.9 - Hypothyroidism, unspecified Status: Chronic Assessment and Plan: * Continue with levothyroxine * Thyroid level 3.220 * Stable and chronic (5) Depression with anxiety: Code(s): F41.8 - Other specified anxiety disorders Status: Chronic Assessment and Plan: * Continue with lorazepam and sertraline * probably caused the fall * Continue to trend mood * Stable at this time (6) Dementia: Code(s): F03.90 - Unspecified dementia, unspecified severity, without behavioral disturbance, psychotic disturbance, mood disturbance, and anxiety Status: Chronic Assessment and Plan: * No home medications * Baseline appears to be A&O x 2 * continue home sertraline and Ativan * Continue to trend mental status (7) DM2 (diabetes mellitus, type 2): Code(s): E11.9 - Type 2 diabetes mellitus without complications Status: Chronic Assessment and Plan: * Check A1c in the am * Hold metformin * Accu-Cheks AC and HS * sliding scale insulin * hypoglycemic protocol * Current glucose 105 (8) Fall: Code(s): W19.XXXA - Unspecified fall, initial encounter Status: Acute Assessment and Plan: * Per the EMS report patient fell at the nursing, it goes on further to state that the patient stated that she fell out of bed * EMS then further stated that the patient had a large hematoma on the forehead * seems that a fall is most likely the reason for initiation of ED evaluation * Head ct negative for any acute abnormality * Subjective Date/time seen: 06/13/22 07:42 Interval history: 06/13/22 06/12/22? 21:17 This is a 76 year old female patient with a history of hypertension and CVA.? The patient presented to the emergency department for status patient has been confused at facility.? The patient was found have a normal glucose.? The patient was confused in the emergency room.? She was following simple commands.? She is awake and talking.? The patient has a purple bruise to the right side of her face.? Chest x-ray was read as left basilar airspace opacities consistent with atelectasis.? Head CT was read as no acute intracranial abnormality age-related findings.? Chest CTA was read as
--- NOTE | 2022-06-13 07:42 | PM.IMPN ---
Progress Note: A&P Assessment and Plan (1) Pneumonia: Qualifiers: Laterality: unspecified laterality Lung location: unspecified part of lung Pneumonia type: due to unspecified organism Qualified Code(s): J18.9 - Pneumonia, unspecified organism Code(s): J18.9 - Pneumonia, unspecified organism Status: Acute Assessment and Plan: Chest xray indicated possible opacity Chest CTA no PE or PNA indicated Sputum and blood cultures pending COVID, influenza, RSV negative Stop antibiotics Procal is 0.1 Not convinced this is pneumonia (2) Restless leg: Code(s): G25.81 - Restless legs syndrome Status: Chronic Assessment and Plan: Continue with Requip Chronic and stable (3) Hyperlipidemia: Code(s): E78.5 - Hyperlipidemia, unspecified Status: Chronic Assessment and Plan: Continue with Zocor LFTs stable Chronic (4) Hypothyroidism: Code(s): E03.9 - Hypothyroidism, unspecified Status: Chronic Assessment and Plan: Continue with levothyroxine Thyroid level 3.220 Stable and chronic (5) Depression with anxiety: Code(s): F41.8 - Other specified anxiety disorders Status: Chronic Assessment and Plan: Continue with lorazepam and sertraline probably caused the fall Continue to trend mood Stable at this time (6) Dementia: Code(s): F03.90 - Unspecified dementia, unspecified severity, without behavioral disturbance, psychotic disturbance, mood disturbance, and anxiety Status: Chronic Assessment and Plan: No home medications Baseline appears to be A&O x 2 continue home sertraline and Ativan Continue to trend mental status (7) DM2 (diabetes mellitus, type 2): Code(s): E11.9 - Type 2 diabetes mellitus without complications Status: Chronic Assessment and Plan: Check A1c in the am Hold metformin Accu-Cheks AC and HS sliding scale insulin hypoglycemic protocol Current glucose 105 (8) Fall: Code(s): W19.XXXA - Unspecified fall, initial encounter Status: Acute Assessment and Plan: Per the EMS report patient fell at the nursing, it goes on further to state that the patient stated that she fell out of bed EMS then further stated that the patient had a large hematoma on the forehead seems that a fall is most likely the reason for initiation of ED evaluation Head ct negative for any acute abnormality Subjective Date/time seen: 06/13/22 07:42 Interval history: 06/13/22 06/12/22? 21:17 This is a 76 year old female patient with a history of hypertension and CVA.? The patient presented to the emergency department for status patient has been confused at facility.? The patient was found have a normal glucose.? The patient was confused in the emergency room.? She was following simple commands.? She is awake and talking.? The patient has a purple bruise to the right side of her face.? Chest x-ray was read as left basilar airspace opacities consistent with atelectasis.? Head CT was read as no acute intracranial abnormality age-related findings.? Chest CTA was read as no evidence of pulmonary embolism.? ABGs pH 7.620, pCO2 21.1.? Her urine was negative and influenza A/B RSV and COVID are negative.? The patient was given IV fluid, Rocephin, and azithromycin. Review of Systems Review of Systems: All systems reviewed & are unremarkable except as noted in HPI and below Exam Narrative: General: well-nourished, well-appearing 76-year-old female, sitting up in bed, comfortable, NARD Neuro: awake, alert and oriented x4, speech clear, no focal neuro deficits noted HEENMT: normocephalic, atraumatic, EOMI, sclerae anicteric, moist oral mucosa Respiratory: Clear to auscultation bilaterally without crackles, rhonchi or wheeze
[2022-06-13 08:28] LABS: Vitamin D 25 Hydroxy 77.3 ng/mL
[2022-06-13] MEDS: MAGNESIUM SULF 2 GM/WATER 50ML 2 GM/50 ML BAG IVPB (08:34)
[2022-06-13] MEDS: FLUTICASONE PROPIONATE 0.05% NA SPR 16 GM BTL (*BKC) 2 SPRAY NASAL (08:38)
[2022-06-13] MEDS: ASPIRIN 81 MG ENTERIC TABLET PO (08:38)
[2022-06-13] MEDS: DOCUSATE SODIUM 100 MG CAPSULE PO (08:38)
[2022-06-13] MEDS: SERTRALINE HCL 50 MG TABLET PO (08:38)
[2022-06-13] MEDS: oxyBUTYnin CHLORIDE XL 5 MG TAB.ER.24 15 MG PO (08:38)
[2022-06-13] MEDS: MONTELUKAST SODIUM 10 MG TABLET PO (08:38)
[2022-06-13] MEDS: FAMOTIDINE 10 MG TABLET PO (08:38)
[2022-06-13] MEDS: ALBUTEROL SULFATE NEB 2.5 MG/3 ML INH INHALATION ×2 (08:44→14:26)
[2022-06-13] MEDS: IPRATROPIUM BR 0.02% INH SOLN 0.5 MG/2.5 ML VIAL INHALATION ×2 (08:44→14:26)
[2022-06-13 09:17] LABS: Folic Acid 10.6 ng/mL (2.76->20)
--- NOTE | 2022-06-13 12:00 | P.DS_ITS ---
DS: Admitting Diagnosis Discharge Date 06/13/22 1200 Admitting Diagnosis Mechanical fall DS: Discharge Diagnosis Discharge Diagnosis (1) Fall: Code(s): W19.XXXA - Unspecified fall, initial encounter Status: Acute Assessment and Plan: * Per the EMS report patient fell at the nursing, it goes on further to state that the patient stated that she fell out of bed * EMS then further stated that the patient had a large hematoma on the forehead * seems that a fall is most likely the reason for initiation of ED evaluation * Head ct negative for any acute abnormality * Ortho static blood pressures ordered * PT/OT ordered (2) Pneumonia: Qualifiers: Laterality: unspecified laterality Lung location: unspecified part of lung Pneumonia type: due to unspecified organism Qualified Code(s): J18.9 - Pneumonia, unspecified organism Code(s): J18.9 - Pneumonia, unspecified organism Status: Acute Assessment and Plan: * Chest xray indicated possible opacity * Chest CTA no PE or PNA indicated * Sputum and blood cultures pending * COVID, influenza, RSV negative * Stop antibiotics * Procal is 0.1 * Not convinced this is pneumonia (3) Restless leg: Code(s): G25.81 - Restless legs syndrome Status: Chronic Assessment and Plan: * Continue with Requip * Chronic and stable (4) Hyperlipidemia: Code(s): E78.5 - Hyperlipidemia, unspecified Status: Chronic Assessment and Plan: * Continue with Zocor * LFTs stable * Chronic (5) Hypothyroidism: Code(s): E03.9 - Hypothyroidism, unspecified Status: Chronic Assessment and Plan: * Continue with levothyroxine * Thyroid level 3.220 * Stable and chronic (6) Depression with anxiety: Code(s): F41.8 - Other specified anxiety disorders Status: Chronic Assessment and Plan: * Continue with lorazepam and sertraline * probably caused the fall * Continue to trend mood * Stable at this time (7) Dementia: Code(s): F03.90 - Unspecified dementia, unspecified severity, without behavioral disturbance, psychotic disturbance, mood disturbance, and anxiety Status: Chronic Assessment and Plan: * No home medications * Baseline appears to be A&O x 2 * continue home sertraline and Ativan * Continue to trend mental status (8) DM2 (diabetes mellitus, type 2): Code(s): E11.9 - Type 2 diabetes mellitus without complications Status: Chronic Assessment and Plan: * Check A1c in the am * Hold metformin * Accu-Cheks AC and HS * sliding scale insulin * hypoglycemic protocol * Current glucose 105 DS: Summary Hospital Course Hospital Course: Patient is a 76-year-old female with a past medical history of CVA, hypertension, dementia, anxiety, BPV, hyperlipidemia who presented to the ED after a fall at the custodial. When inquiring about the fall the patient started to laugh and stated that when she does something she does good. She said she was trying to get up out of bed however when she did she was unable to catch her balance and fell she. She stated that lately they put her bed lower so lilibeth
--- NOTE | 2022-06-13 12:00 | PM.DS ---
DS: Admitting Diagnosis Discharge Date 06/13/22 1200 Admitting Diagnosis Mechanical fall DS: Discharge Diagnosis Discharge Diagnosis (1) Fall: Code(s): W19.XXXA - Unspecified fall, initial encounter Status: Acute Assessment and Plan: Per the EMS report patient fell at the nursing, it goes on further to state that the patient stated that she fell out of bed EMS then further stated that the patient had a large hematoma on the forehead seems that a fall is most likely the reason for initiation of ED evaluation Head ct negative for any acute abnormality Ortho static blood pressures ordered PT/OT ordered (2) Pneumonia: Qualifiers: Laterality: unspecified laterality Lung location: unspecified part of lung Pneumonia type: due to unspecified organism Qualified Code(s): J18.9 - Pneumonia, unspecified organism Code(s): J18.9 - Pneumonia, unspecified organism Status: Acute Assessment and Plan: Chest xray indicated possible opacity Chest CTA no PE or PNA indicated Sputum and blood cultures pending COVID, influenza, RSV negative Stop antibiotics Procal is 0.1 Not convinced this is pneumonia (3) Restless leg: Code(s): G25.81 - Restless legs syndrome Status: Chronic Assessment and Plan: Continue with Requip Chronic and stable (4) Hyperlipidemia: Code(s): E78.5 - Hyperlipidemia, unspecified Status: Chronic Assessment and Plan: Continue with Zocor LFTs stable Chronic (5) Hypothyroidism: Code(s): E03.9 - Hypothyroidism, unspecified Status: Chronic Assessment and Plan: Continue with levothyroxine Thyroid level 3.220 Stable and chronic (6) Depression with anxiety: Code(s): F41.8 - Other specified anxiety disorders Status: Chronic Assessment and Plan: Continue with lorazepam and sertraline probably caused the fall Continue to trend mood Stable at this time (7) Dementia: Code(s): F03.90 - Unspecified dementia, unspecified severity, without behavioral disturbance, psychotic disturbance, mood disturbance, and anxiety Status: Chronic Assessment and Plan: No home medications Baseline appears to be A&O x 2 continue home sertraline and Ativan Continue to trend mental status (8) DM2 (diabetes mellitus, type 2): Code(s): E11.9 - Type 2 diabetes mellitus without complications Status: Chronic Assessment and Plan: Check A1c in the am Hold metformin Accu-Cheks AC and HS sliding scale insulin hypoglycemic protocol Current glucose 105 DS: Summary Hospital Course Hospital Course: Patient is a 76-year-old female with a past medical history of CVA, hypertension, dementia, anxiety, BPV, hyperlipidemia who presented to the ED after a fall at the intermediate. When inquiring about the fall the patient started to laugh and stated that when she does something she does good. She said she was trying to get up out of bed however when she did she was unable to catch her balance and fell she. She stated that lately they put her bed lower so that she can get in and out of it easier. Upon arrival to the ED it was noted that the patient had to be slightly bradycardic. chest x-ray was performed and showed atelectasis versus pneumonia however CT was also performed and showed no PE or any kind of pneumonia. Head CT was performed and showed chronic findings. Labs and vital signs were unremarkable. COVID, RSV, influenza was all negative. Patient was initially placed on antibiotics however procalcitonin did come back at 0.1. Today patient reports feeling okay states that she had a large bowel movement the bed however she is denying any current chest pain, shortness a breath, nausea, vomiting, diarrhea or constipation. She
== END 2022-06-13 15:20 | DRG 605 ==
LOC: ANHED 14:18 → ANH2MED 17:17
PROVIDERS: Nurse Practitioner; Admitting Provider Chiropractor; Emergency Provider Emergency Medicine; Visit Provider Nurse Practitioner
DX: S00.83XA Contusion of other part of head, initial encounter (principal); I10 Essential (primary) hypertension; W06.XXXA Fall from bed, initial encounter; E78.5 Hyperlipidemia, unspecified; E03.9 Hypothyroidism, unspecified; E86.0 Dehydration; E11.9 Type 2 diabetes mellitus without complications; F03.90 Unspecified dementia, unspecified severity, without behavioral disturbance, psychotic disturbance, mood disturbance, and anxiety; F41.8 Other specified anxiety disorders; G25.81 Restless legs syndrome; Z20.822 Contact with and (suspected) exposure to COVID-19; Z86.73 Personal history of transient ischemic attack (TIA), and cerebral infarction without residual deficits; Z79.82 Long term (current) use of aspirin; Z79.84 Long term (current) use of oral hypoglycemic drugs; Z90.710 Acquired absence of both cervix and uterus; Z90.49 Acquired absence of other specified parts of digestive tract
CPT/HCPCS: 36415; 36600; 70450; 71045; 71275; 80053; 81001; 82306; 82375; 82607; 82746; 82803; 82805; 83050; 83605; 83735; 84145; 84443; 84484; 85025; 85055; 85610; 85730; 86140; 87040; 87637; 93005; 94640; 96361; 96365; 96368; 99285; A9270; J0456; J0696; J3475; J7030; J7120; Q9967

== ENCOUNTER 2023-02-04 13:11 | Emergency (ER) | payer MEDICARE, OTHER, SELFPAY ==
--- NOTE | ~2023-02-04 | CT_ITS ---
EXAMINATION: CT cervical spine wo con DATE: 02/04/2023 14:03 INDICATION: Head injury. Fall. TECHNIQUE: Computed tomography (CT) of the cervical spine was performed without intravenous contrast. Automated exposure control and iterative reconstruction technique were employed. The dose-length pro duct was 499.27 mGy-cm. COMPARISON: CT cervical spine 05/29/2022 FINDINGS: Bone alignment is normal. Vertebral body heights are normal. There is moderately decreased disc height at C5-C6 and C6-C7. The following disc levels are specifically discussed: C2-C3: There is no uncovertebral joint osteoarthritis. There is moderate right and severe left facet joint osteoarthritis. There is no neural foraminal stenosis. There is no central canal stenosis. C3-C4: There is no uncovertebral joint osteoarthritis. There is moderate bilateral facet joint osteoa rthritis. There is no neural foraminal stenosis. There is no central canal stenosis. C4-C5: There is mild bilateral uncovertebral joint osteoarthritis. There is moderate bilateral facet joint osteoarthritis. There is no neural foraminal stenosis. There is no central canal stenosis. C5-C6: There is severe bilateral uncovertebral joint osteoarthritis. There is mild bilateral facet chino int osteoarthritis. There is mild bilateral neural foraminal stenosis. There is mild central canal st enosis. C6-C7: There is severe bilateral uncovertebral joint osteoarthritis. There is mild right and moderate left facet joint osteoarthritis. There is mild bilateral neural foraminal stenosis. There is mild ce ntral canal stenosis. C7-T1: There is no uncovertebral joint osteoarthritis. There is mild right and severe left facet join t osteoarthritis. There is mild left neural foraminal stenosis. There is no central canal stenosis. IMPRESSION: 1. No fracture. 2. Moderate cervical spondylosis. Reviewed, dictated and finalized at location A. [facility] DOC[facility]
--- NOTE | ~2023-02-04 | XR_ITS ---
XR hip RT 2V w AP pelvis DATE: 02/04/2023 15:00 INDICATION: Right hip pain, difficulty ambulating TECHNIQUE: AP pelvis. AP and lateral views of right hip. COMPARISON: None FINDINGS: Multilevel lumbar degenerative disc disease and degenerative change at the apophyseal joint s of the lumbar spine are noted. No pelvic fracture or bone destruction is detected. The pubic symphysis and sacroiliac joints are int act. No fracture or dislocation, avascular necrosis or bone destruction of the right hip is detected. Hip joint spaces are symmetric and relatively well preserved. IMPRESSION: Degenerative changes of the lumbar spine No significant abnormality of the right hip Reviewed, dictated and finalized at location B. RMATION SYSTEMS SPECIALIST
--- NOTE | ~2023-02-04 | CT_ITS ---
EXAMINATION: CT brain wo con DATE: 02/04/2023 14:02 INDICATION: Head injury. TECHNIQUE: Computed tomography (CT) of the head was performed without intravenous contrast. The mA wa s adjusted according to patient size. Iterative reconstruction technique was employed. The dose-lengt h product was 681.00 mGy-cm. COMPARISON: Head CT 06/12/2022 FINDINGS: There are old infarcts in the left cerebellum. There are old infarcts in the bilateral basa l ganglia. There are scattered areas of low attenuation in the cerebral white matter. There is no int racranial hemorrhage, acute infarction, or abnormal intracranial mass lesion. The ventricles are norm al in size. The paranasal sinuses are clear. The mastoid air cells are normal. There are likely bettencourt es of ocular lens replacement surgeries. IMPRESSION: 1. Old infarcts in the left cerebellum and bilateral basal ganglia. 2. Stable moderate nonspecific cerebral white matter disease, which likely represents chronic small v essel ischemic disease. Reviewed, dictated and finalized at location A. IGN LANGUAGE INSTRUCTOR IMPRESSION: 1. Old infarcts in the left cerebellum and bilateral basal ganglia. 2. Stable moderate nonspecific cerebral white matter disease, which likely repr esents chronic small vessel ischemic disease.
[2023-02-04 13:38] VITALS: BP 143/54; PULSE 68; RESP 16; TEMP 36.4; O2SAT 98
[2023-02-04 17:10] VITALS: BP 154/81; PULSE 56; RESP 18; O2SAT 99
--- NOTE | 2023-02-04 17:37 | ED.LOWEXIN ---
HPI - Extremity Injury (Lower) General Chief Complaint: Extremity Injury, Lower Stated Complaint: fall, right hip pain Time Seen by Provider: 02/04/23 16:07 History of Present Illness HPI Narrative: Patient is a 77-year-old female with history of dementia who presents ER after a fall at her memory care. Patient was up and ambulatory when EMS arrived. Reports right hip pain. It is also thought she hit her head. Patient is on any blood thinning medication. She has no reports of pain outside of her right hip. Additional concerns. Related Data Home Medications Medication Instructions Recorded Confirmed aspirin 81 mg tablet 81 mg PO DAILY 12/13/20 06/12/22 docusate sodium 100 mg tablet 100 mg PO DAILY 12/13/20 06/12/22 famotidine 20 mg tablet 10 mg PO DAILY 12/13/20 06/12/22 fluticasone propionate 50 50 mcg intranasal DAILY 12/13/20 06/12/22 mcg/actuation nasal spray,suspension levothyroxine 25 mcg tablet 25 mcg PO DAILY 12/13/20 06/12/22 montelukast 10 mg tablet 10 mg PO DAILY 12/13/20 06/12/22 ropinirole 1 mg tablet 1 mg PO HS 12/13/20 06/12/22 sertraline 50 mg tablet 50 mg PO DAILY 12/13/20 06/12/22 simvastatin 10 mg tablet 10 mg PO HS 12/13/20 06/12/22 acetaminophen 650 mg tablet 650 mg PO Q6H PRN Fever Or Pain 01/12/21 06/12/22 albuterol 90 mcg/actuation aerosol 90 mcg inhalation Q4-5H PRN 01/12/21 06/12/22 inhaler Shortness Of Breath Or Wheezing loperamide 2 mg capsule 2 mg PO Q4H PRN Diarrhea 01/12/21 06/12/22 (Anti-Diarrheal (loperamide)) lorazepam 1 mg tablet 0.5 mg PO Q12H PRN Agitation 01/12/21 06/12/22 meclizine 25 mg tablet 25 mg PO TID PRN Dizziness 01/12/21 06/12/22 metformin 500 mg tablet 500 mg PO BIDWM 01/12/21 06/12/22 oxybutynin chloride 5 mg tablet 15 mg PO DAILY 01/12/21 06/12/22 cholecalciferol (vitamin D3) 125 1,250 mcg PO WEEKLY 06/12/22 06/12/22 mcg (5,000 unit) tablet (Vitamin D3) triamcinolone acetonide 0.025 % 1 applic topical QID PRN Rash 06/12/22 06/12/22 topical ointment Allergies Allergy/AdvReac Type Severity Reaction Status Date / Time No Known Allergies Allergy Verified 06/12/22 17:53 Review of Systems Review of Systems: ROS unobtainable: Yes other (Limited due to dementia) Musculoskeletal: Musculoskeletal: Reports arthralgias and Denies joint swelling PMFSH Past Medical History Medical History (Updated 02/04/23 @ 17:39 by Ean Cobb MD) Acute metabolic encephalopathy Acute UTI HANS (acute kidney injury) Delirium Dementia Depression with anxiety Diverticulitis DM2 (diabetes mellitus, type 2) Encephalopathy Fluid overload Hematoma of neck History of CVA (cerebrovascular accident) Hyperlipidemia Hypokalemia Hypomagnesemia Hypothyroidism Narcolepsy Pneumonia Restless leg Suspected COVID-19 virus infection Surgical History Surgical History H/O lumpectomy H/O: hysterectomy History of total knee arthroplasty Hx of cholecystectomy S/P colectomy Family History Family History Father Bone cancer Mother Cerebrovascular accident Other Unknown family medical history Social History Social History Social History: She is . she is listed as a full code.She has two children. However her daughter Eloy Amanda has recently from cancer. Now her son is the durable power county attorney for healthcare. Nonsmoker. no alcohol. she retired from [employer] Code status full code Smoking status: Never smoker Alcohol intake: unknown Substance use: never Substance use type: does not use Spiritual care concerns: No Exam Narrative: GENERAL: Well-appearing, well-nourished, and in no acute distress. HEAD: Normocephalic, atraumatic. ENT: Mucous membranes moist. CHEST: Clear to auscultation. No respiratory distress. HEART: Regular rate and rhythm. Normal pe
== END 2023-02-04 18:29 ==
PROVIDERS: Emergency Provider Emergency Medicine
DX: M25.551 Pain in right hip (principal); F03.90 Unspecified dementia, unspecified severity, without behavioral disturbance, psychotic disturbance, mood disturbance, and anxiety; F32.A Depression, unspecified; F41.9 Anxiety disorder, unspecified; E11.9 Type 2 diabetes mellitus without complications; Z79.84 Long term (current) use of oral hypoglycemic drugs; Z86.73 Personal history of transient ischemic attack (TIA), and cerebral infarction without residual deficits; E03.9 Hypothyroidism, unspecified; G47.419 Narcolepsy without cataplexy; W19.XXXA Unspecified fall, initial encounter
CPT/HCPCS: 70450; 72125; 73502; 99284